=== PATIENT | male | born 1980 | race Caucasian/White ===

== ENCOUNTER 2016-12-21 17:55 | Emergency (ER) | payer MEDICARE, MEDICAID ==
[~2016-12-21] VITALS: Ht 185.4 cm; Wt 89.5 kg
[~2016-12-21 17:55] MED LIST changes: -ABIL15TA2 PO; +ABIL1TAB12 PO; -ABIL5TAB5 PO; -COLA100C3 PO; +COLA100C5 PO; +HYDR-3911 PO; -HYDR-4267 PO; -KEPP1000 PO; +KEPP10002 PO; +PAXI20TA29 PO; -PAXI20TA3 PO; -PROZ20CA11 PO; -SENO8.6T2 PO; +SENO8.6T5 PO; +TRAZ50TA11 PO; -TRAZ50TA4 PO
[2016-12-21] MEDS ORDERED: PROZ20CA11 PO (18:13)
[2016-12-21] MEDS ORDERED: VIMP150T PO (18:13)
[2016-12-21] MEDS ORDERED: ABIL1TAB11 PO (18:13)
[2016-12-21 20:06] VITALS: BP 136/87
== END 2016-12-21 20:07 | disposition home or self-care (01) ==
LOC: M ED 18:22
DX: I82.432 Acute embolism and thrombosis of left popliteal vein (principal); I10 Essential (primary) hypertension; F41.9 Anxiety disorder, unspecified; F32.9 Major depressive disorder, single episode, unspecified; Z86.73 Personal history of transient ischemic attack (TIA), and cerebral infarction without residual deficits; M54.30 Sciatica, unspecified side; F17.200 Nicotine dependence, unspecified, uncomplicated; Z79.899 Other long term (current) drug therapy; Z88.8 Allergy status to other drugs, medicaments and biological substances

== ENCOUNTER → 2016-12-21 | Outpatient (CLI) | payer MEDICARE, MEDICAID ==
[~2016-12-21] MED LIST: ABIL15TA2 PO; ABIL5TAB5 PO; ALPR0.25 PO; AMLO10TA2 PO; Amlodipine Besylate PO; CATA0.2T PO; COLA100C3 PO; HYDR-4267 PO; KEPP1000 PO; LISI-538 PO; LISI10TA2 PO; MAPA325T2 PO; PANT40TA2 PO; PAXI20TA3 PO; PROZ20CA11 PO; SENO8.6T2 PO; SERT50TA PO; TRAZ25TA PO; TRAZ50TA4 PO; VICO5TAB16 PO; VIMP150T PO; VITA100T2 PO
--- NOTE | 2016-12-21 17:43 | REP ---
RIGHT LOWER EXTREMITY DOPPLER VENOUS ULTRASOUND: 12/21/2016. Comparison: 10/06/2015. Clinical history: Swelling and pain right lower extremity, evaluate for DVT. Findings: Duplex techniques were utilized. The common femoral and proximal superficial femoral vein showed full compressibility, color flow, respiratory variation and augmentation. In the mid thigh through the popliteal vein there is nonocclusive DVT present in the deep venous system. Some flow is seen but there is poor augmentation and respiratory variability. Impression: 1. Study positive for nonocclusive DVT from the right mid thigh course of the SFA the through the popliteal vein. Signed by Armando Mendoza MD 12/21/2016 05:34 P
== END ==
LOC: M RAD 16:49
PROVIDERS: ATTEND Physician Assistant Medical
DX: I82.432 Acute embolism and thrombosis of left popliteal vein (principal)

== ENCOUNTER 2017-02-07 13:56 | Inpatient (IN) | payer MEDICARE, MEDICAID ==
[~2017-02-07] VITALS: Ht 185.4 cm; Wt 94.0 kg
[~2017-02-07 13:56] MED LIST changes: -ELIQ2.5T PO; -IBUPOTC PO; -LEVE750T5 PO
[2017-02-07 15:15] VITALS: BP 131/76
[2017-02-07 15:39] LABS: BASO # 0.1 K/mm3 (0.0-0.2); BASO % 0.9 % (0.0-1.0); EOS # 0.4 K/mm3 (0.0-0.50); EOS % 5.1 % (0.0-3.0); LARGE UNSTAINED CELL # 0.1 K/mm3 (0.0-0.4); LARGE UNSTAINED CELL % 0.6 % (0.0-4.0); LYMPH # 1.6 K/mm3 (1.5-4.5); LYMPH % 18.6 % (24.0-44.0); MEAN CORPUSCULAR HGB CONC 33.5 g/dl (32.0-36.5); MEAN CORPUSCULAR VOLUME 92.5 fl (80.0-96.0); MONO # 0.4 K/mm3 (0.0-0.8); MONO % 4.7 % (0.0-5.0); NEUTROPHILS # 5.8 K/mm3 (1.8-7.7); NEUTROPHILS % 70.1 % (36.0-66.0); PLATELET COUNT, AUTOMATED 277 k/mm3 (150-450); RED CELL DISTRIBUTION WIDTH 13.8 % (11.5-14.5); WHITE BLOOD COUNT 8.3 K/mm3 (4.0-10.0)
[2017-02-07 15:44] LABS: INR 0.85
[2017-02-07 15:55] LABS: ANION GAP 5 MEQ/L (8-16); BLOOD UREA NITROGEN 11 MG/DL (7-18); CALCIUM LEVEL 9.6 MG/DL (8.5-10.1); CARBON DIOXIDE LEVEL 29 MEQ/L (21-32); CHLORIDE LEVEL 109 MEQ/L (98-107); CREATININE FOR GFR 0.89 MG/DL (0.70-1.30); GLOMERULAR FILTRATION RATE > 60.0 (>60); GLUCOSE, FASTING 86 MG/DL (70-105); POTASSIUM SERUM 3.9 MEQ/L (3.5-5.1); SODIUM LEVEL 143 MEQ/L (136-145)
[2017-02-07] MEDS ORDERED: ISOVUE-370 76% 100ML VIAL (Q9967) As Ordered ONE (16:20)
[2017-02-07] MEDS: D5W/0.45% SODIUM CHLORIDE 1,000 ML IV SCH ×2 (17:06→23:19)
--- NOTE | 2017-02-07 18:43 | REP ---
CT ANGIO CHEST: HISTORY: Pulmonary embolism. CONTRAST: Isovue-370 100 mL. There are no filling defects in the main , right and left pulmonary arteries or their branches. The lungs are clear. There is no pleural effusion. There is no mediastinal mass. A small hiatal hernia is present. IMPRESSION: 1. There is no pulmonary embolism. 2. Small hiatal hernia. Signed by Jah Oneil MD 02/07/2017 06:47 P
[2017-02-07] MEDS ORDERED: LEVE750T5 PO (21:42)
[2017-02-07] MEDS ORDERED: IBUPOTC PO (21:43)
[2017-02-07 22:00] VITALS: BP 135/84
--- NOTE | 2017-02-07 23:07 | IPNPDOC ---
Date Seen The patient was seen on 02/07/17. Progress Note SUBJECTIVE: Patient is without complaints. OBJECTIVE PHYSICAL EXAMINATION: VITAL SIGNS: Please see below. GENERAL: Lying in bed in no apparent distress HEENT: Normal CARDIOVASCULAR: Regular rate and rhythm. RESPIRATORY: Clear to auscultation bilaterally. ABDOMINAL: Soft nontender nondistended EXTREMITIES: Bilateral lotion swelling, lower extremities well perfused. NEUROLOGICAL: Alert and oriented x3 with no focal deficits PSYCHOLOGICAL: [place] LABORATORY DATA: Please see below. MICROBIOLOGY: Please see below. IMAGING: CT of the chest shows no evidence of pulmonary embolus. Left lower extremity venous ultrasound shows left lower extremity DVT. DVT prophylaxis ordered?: Patient has an IVC filter. Patient admitted with acute left lower extremity DVT. ASSESSMENT AND PLAN: This is a 36-year-old white male with acute left lower extremity DVT and chronic right lower extremity DVT. PROBLEMS: 1. left lower extremity DVT: Patient has new onset DVT in the left lower extremity. Patient has an IVC filter in place and has not been able to undergo anti-coagulation due to previous subarachnoid hemorrhages. Patient will be admitted for elevation of his left lower extremity and pain control. DISPOSITION: . VS, I&O, 24H, [facility] Vital Signs/I&O Vital Signs Date Time Temp Pulse Resp B/P (MAP) Pulse Ox O2 Delivery O2 Flow Rate FiO2 02/07/17 15:15 98.5 76 17 131/76 (94) 100 Room Air Laboratory Data 24H LABS Laboratory Tests 2 02/07/17 15:25: White Blood Count 8.3, Red Blood Count 4.43, Hemoglobin 13.7L, Hematocrit 41.0L , Mean Corpuscular Volume 92.5, Mean Corpuscular Hemoglobin 31.0, Mean Corpuscular Hemoglobin Concent 33.5, Red Cell Distribution Width 13.8, Platelet Count 277, Neutrophils (%) (Auto) 70.1H, Lymphocytes (%) (Auto) 18.6L, Monocytes (%) (Auto) 4.7, Eosinophils (%) (Auto) 5.1H, Basophils (%) (Auto) 0.9 , Neutrophils # (Auto) 5.8, Lymphocytes # (Auto) 1.6, Monocytes # (Auto) 0.4, Eosinophils # (Auto) 0.4, Basophils # (Auto) 0.1, Large Unclassified Cells % 0.6 , Large Unclassified Cells # 0.1, Prothrombin Time 11.6L, Prothromb Time International Ratio 0.85, Activated Partial Thromboplast Time 28.8, Anion Gap 5L , Glomerular Filtration Rate > 60.0, Blood Urea Nitrogen 11, Creatinine 0.89, Sodium Level 143, Potassium Level 3.9, Chloride Level 109H, Carbon Dioxide Level 29, Calcium Level 9.6 CBC/BMP Laboratory Tests 02/07/17 15:25 Red Blood Count 4.43, Mean Corpuscular Volume 92.5, Mean Corpuscular Hemoglobin 31.0, Mean Corpuscular Hemoglobin Concent 33.5, Red Cell Distribution Width 13.8 , Neutrophils (%) (Auto) 70.1 H, Lymphocytes (%) (Auto) 18.6 L, Monocytes (%) ( Auto) 4.7, Eosinophils (%) (Auto) 5.1 H, Basophils (%) (Auto) 0.9, Neutrophils # (Auto) 5.8, Lymphocytes # (Auto) 1.6, Monocytes # (Auto) 0.4, Eosinophils # ( Auto) 0.4, Basophils # (Auto) 0.1, Calcium Level 9.6 Adin Regan MD Feb 07, 2017 23:07
[2017-02-07] MEDS: LACOSAMIDE 50 MG TAB (VIMPAT) PO SCH (23:12)
[2017-02-07] MEDS: levETIRAcetam 250MG TABLET (KEPPRA) PO SCH (23:12)
[2017-02-07] MEDS: IBUPROFEN 800 MG TAB PO PRN (23:13)
[2017-02-08 02:00] VITALS: BP 117/68
[2017-02-08 06:00] VITALS: BP 119/65
[2017-02-08] MEDS: D5W/0.45% SODIUM CHLORIDE 1,000 ML IV SCH ×2 (06:32→15:06)
--- NOTE | 2017-02-08 07:42 | REP ---
CT of the abdomen and pelvis with IV contrast, without bowel contrast: There are no comparison CT studies. Scanning is performed during the portal venous phase of enhancement. There are no delayed images to evaluate during the venous return phase. There is a vena cava filter just below the level of the renal arteries and veins. Above the level of the vena cava filter the abdominal vena cava is opacified by venous return from the kidneys and hepatic veins to the cardiac right atrium. Below the vena cava filter the vena cava is not opacified. However, of the fifth vena cava in this location does not appear distended. The iliac and femoral veins are distended bilaterally compatible with intraluminal thrombus. However, because of timing scanning with the IV contrast, there is no venous return from the lower extremities at the time of scanning therefore this study is insensitive for intraluminal filling defects. However, a left lower extremity deep vein duplex ultrasound on this same date identified complete occlusion of the left lower extremity deep venous system from the popliteal vein to the common femoral vein. The hepatic parenchyma, gallbladder, pancreas and spleen are unremarkable. The portal vein is normally opacified without filling defect. I suspect there are a few varices in the splenic hilus. The adrenals, kidneys and abdominal aorta are unremarkable. There is no bowel distension or obstruction. Pelvis: The appendix is unremarkable. There is no ascites or adenopathy. There is wall thickening of the descending colon and sigmoid colon. This is nonspecific but could represent colitis in the appropriate clinical setting. The bladder is incompletely distended and cannot be further evaluated. Impression: There is a Marion filter in the abdominal vena cava just inferior to the renal arteries and veins. There is opacification of the abdominal vena cava above the filter all the way to the cardiac right atrium from venous return from the kidneys and hepatic vein. The abdominal vena cava below the Dora filter is non opacified, however, is not distended. The iliac and femoral veins in the pelvis are distended bilaterally, compatible with intraluminal thrombus. The timing of the scan with the intravascular contrast is not performed during the venous return phase therefore I am unable to evaluate for intraluminal filling defects on the basis of this scan. I suspect there are a few varices near the splenic hilus. Signed by Donis Domingo MD 02/08/2017 07:34 A
[2017-02-08] MEDS ORDERED: FLUoxetine 20 MG CAP PO SCH (09:00)
[2017-02-08] MEDS ORDERED: amLODIPine 10 MG TAB PO SCH (09:00)
[2017-02-08] MEDS: levETIRAcetam 250MG TABLET (KEPPRA) PO SCH (09:59)
[2017-02-08] MEDS: LACOSAMIDE 50 MG TAB (VIMPAT) PO SCH (09:59)
[2017-02-08 10:00] VITALS: BP 118/76
[2017-02-08] MEDS: IBUPROFEN 800 MG TAB PO PRN ×2 (10:05→11:02)
[2017-02-08 14:00] VITALS: BP 147/85
[2017-02-08] MEDS ORDERED: APIXABAN 2.5 MG TAB (ELIQUIS) PO ONE (14:00)
[2017-02-08] MEDS ORDERED: ELIQ2.5T PO (15:00)
--- NOTE | 2017-03-09 11:57 | DS.PDOC ---
Discharge Summary General Date of Admission Feb 07, 2017 at 15:03 Date of Discharge 02/08/2017 Attending Physician: Adin Regan MD Discharge Summary PROCEDURES PERFORMED DURING STAY: None. ADMITTING DIAGNOSES: 1. Left lower extremity DVT. 2. Left lower extremity pain and swelling. 3. Right lower extremity DVT DISCHARGE DIAGNOSES: 1. Left lower extremity DVT. 2. Left lower extremity pain and swelling. 3. Right lower extremity DVT COMPLICATIONS/CHIEF COMPLAINT: DVT. HISTORY OF PRESENT ILLNESS: Patient is a 36-year-old male with known history of right lower extremity DVT had new onset left lower extremity swelling and findings of a DVT. HOSPITAL COURSE: Patient was admitted underwent elevation of his leg and pain control and did well with significant decrease in his pain and swelling with elevation. Patient has an inferior vena cava filter already in place and is protected from pulmonary embolus. Patient has had previous subarachnoid hemorrhages and is not a good candidate for anticoagulation. DISCHARGE MEDICATIONS: Please see below. ALLERGIES: Please see below. PHYSICAL EXAMINATION ON DISCHARGE: VITAL SIGNS: Please see below. GENERAL: Lying in bed comfortably HEENT: Normal NECK: Supple with no carotid bruits CARDIOVASCULAR EXAMINATION: Regular rate and rhythm RESPIRATORY EXAMINATION: There to auscultation bilaterally ABDOMINAL EXAMINATION: Soft nontender nondistended EXTREMITIES: Left lower extremity swelling is significantly reduced with good perfusion of the left lower extremity and minimal pain with palpation SKIN: Warm and well perfused NEUROLOGICAL EXAMINATION: Awake alert oriented 3 with no focal deficits PSYCHIATRIC EXAMINATION: Normal LABORATORY DATA: Please see below. PROGNOSIS: Good ACTIVITY: As tolerated. DIET: Resume previous diet. DISCHARGE PLAN: She is being discharged home DISPOSITION: 01 Home, Self-Care. DISCHARGE INSTRUCTIONS: 1. Elevate left leg is much as possible. 2. Wear compression stockings regularly. 3. Follow-up in the office in 1-2 weeks. ITEMS TO FOLLOWUP ON ON OUTPATIENT: 1. Bilateral lower extremity DVT with inability to anticoagulate due to previous subarachnoid hemorrhages. DISCHARGE CONDITION: Stable. TIME SPENT ON DISCHARGE: Greater than 45 minutes. Discharge Medications Scheduled Amlodipine Besylate (Amlodipine Besylate) 10 Mg Tab, 10 MG PO DAILY, (Reported) Apixaban Base (Eliquis) 2.5 Mg Tab, 2.5 MG PO BID Aripiprazole (Abilify) 5 Mg Tab, 5 MG PO DAILY, (Reported) Fluoxetine HCl (Prozac) 20 Mg Cap, 20 MG PO DAILY, (Reported) Lacosamide (Vimpat) 150 Mg Tab, 150 MG PO BID, (Reported) Levetiracetam (Levetiracetam) 750 Mg Tab, 1,500 MG PO BID, (Reported) Scheduled PRN Ibuprofen (Ibuprofen) 200 Mg Tab, 800 MG PO Q8H PRN for PAIN, (Reported) Allergies Coded Allergies: Unclassified Drugs (Unverified Allergy, Unknown, "SEX AID" - anxiety , 09/02) Adin Regan MD Mar 09, 2017 11:57
== END 2017-02-08 16:39 | disposition home or self-care (01) | DRG 301 ==
LOC: M MSPAV 15:03
PROVIDERS: ADMIT Surgery Vascular Surgery; ATTEND Surgery Vascular Surgery
DX: I82.432 Acute embolism and thrombosis of left popliteal vein (principal); I82.412 Acute embolism and thrombosis of left femoral vein; I82.501 Chronic embolism and thrombosis of unspecified deep veins of right lower extremity; I70.212 Atherosclerosis of native arteries of extremities with intermittent claudication, left leg; Z95.828 Presence of other vascular implants and grafts

== ENCOUNTER → 2017-02-07 | Outpatient (CLI) | payer MEDICARE, MEDICAID ==
[~2017-02-07] MED LIST changes: +ABIL1TAB11 PO; +ELIQ2.5T PO; +IBUPOTC PO; +LEVE750T5 PO; +PROZ20CA11 PO
--- NOTE | 2017-02-07 15:36 | REP ---
Left lower extremity deep vein duplex ultrasound: The deep veins demonstrate no occluding intraluminal thrombus from the popliteal vein to the common femoral vein. Impression: Occluding thrombus throughout the deep venous system of the left lower extremity. Signed by Donis Domingo MD 02/07/2017 03:27 P
== END ==
LOC: M RAD 12:57
PROVIDERS: ATTEND Surgery Vascular Surgery
DX: I82.432 Acute embolism and thrombosis of left popliteal vein (principal); I82.412 Acute embolism and thrombosis of left femoral vein; I70.212 Atherosclerosis of native arteries of extremities with intermittent claudication, left leg

== ENCOUNTER 2017-08-23 16:24 | Emergency (ER) | payer MEDICARE, MEDICAID | END 2017-08-23 20:09 | disposition home or self-care (01) | LOC: M ED 16:24 | DX: M79.601 Pain in right arm (principal); Z86.718 Personal history of other venous thrombosis and embolism; Z86.73 Personal history of transient ischemic attack (TIA), and cerebral infarction without residual deficits; F17.210 Nicotine dependence, cigarettes, uncomplicated; Z88.8 Allergy status to other drugs, medicaments and biological substances; Z79.899 Other long term (current) drug therapy; Z79.01 Long term (current) use of anticoagulants | CPT/HCPCS: 93971 ==

== ENCOUNTER → 2017-09-28 | Outpatient (REF) | payer MEDICARE, MEDICAID ==
[2017-09-28 19:02] LABS: BASO # 0.1 10^3/uL (0.0-0.2); EOS # 0.1 10^3/uL (0.0-0.50); EOS % 1.7 % (0.0-3.0); HEMATOCRIT 54.8 % (42.0-52.0); IMMATURE GRANULOCYTE % 0.6 % (0-3.0); LYMPH # 1.5 10^3/uL (1.5-4.5); LYMPH % 17.8 % (24.0-44.0); MEAN CORPUSCULAR HEMOGLOBIN 31.9 pg (27.0-33.0); MEAN CORPUSCULAR HGB CONC 32.8 g/dl (32.0-36.5); MEAN CORPUSCULAR VOLUME 97.2 fl (80.0-96.0); MONO # 0.7 10^3/uL (0.0-0.8); MONO % 7.8 % (0.0-5.0); NEUTROPHILS # 5.9 10^3/uL (1.8-7.7); NEUTROPHILS % 71.1 % (36.0-66.0); PLATELET COUNT, AUTOMATED 215 10^3/uL (150-450); RED BLOOD COUNT 5.64 10^6/uL (4.30-6.10); RED CELL DISTRIBUTION WIDTH 14.5 % (11.5-14.5); WHITE BLOOD COUNT 8.4 10^3/uL (4.0-10.0)
[2017-09-28 19:11] LABS: ALBUMIN 4.3 GM/DL (3.2-5.2); ALBUMIN/GLOBULIN RATIO 1.19 (1.00-1.93); ALKALINE PHOSPHATASE 141 U/L (45-117); ALT/SGPT 33 U/L (12-78); ANION GAP 7 MEQ/L (8-16); AST/SGOT 15 U/L (7-37); BILIRUBIN,TOTAL 0.4 MG/DL (0.2-1.0); BLOOD UREA NITROGEN 14 MG/DL (7-18); CALCIUM LEVEL 9.3 MG/DL (8.5-10.1); CARBON DIOXIDE LEVEL 26 MEQ/L (21-32); CHLORIDE LEVEL 111 MEQ/L (98-107); CREATININE FOR GFR 1.09 MG/DL (0.70-1.30); GLOMERULAR FILTRATION RATE > 60.0 (>60); GLUCOSE, FASTING 92 MG/DL (70-100); POTASSIUM SERUM 3.8 MEQ/L (3.5-5.1); SODIUM LEVEL 144 MEQ/L (136-145); TOTAL PROTEIN 7.9 GM/DL (6.4-8.2)
[2017-09-28 20:01] LABS: ADD MORPHOLOGY? YES; POS COUNT POS FLAG
[2017-09-28 20:02] LABS: PLATELET CLUMPS SMALL AMT; PLATELET ESTIMATE NORMAL (NORMAL)
== END ==
LOC: M LABNEURO 13:41
DX: S06.6X2S Traumatic subarachnoid hemorrhage with loss of consciousness of 31 minutes to 59 minutes, sequela (principal); W18.30XA Fall on same level, unspecified, initial encounter; Y92.009 Unspecified place in unspecified non-institutional (private) residence as the place of occurrence of the external cause
CPT/HCPCS: 80053

== ENCOUNTER 2018-02-24 16:46 | Emergency (ER) | payer MEDICARE, MEDICAID ==
[2018-02-24] MEDS: AUGMENTIN 875 MG TAB PO (18:23)
[2018-02-24] MEDS: ACETAMINOPHEN 325 MG TAB PO (18:23)
== END 2018-02-24 18:31 | disposition home or self-care (01) ==
LOC: M ED 16:46
DX: K02.9 Dental caries, unspecified (principal); I10 Essential (primary) hypertension; K21.9 Gastro-esophageal reflux disease without esophagitis; F32.9 Major depressive disorder, single episode, unspecified; F17.200 Nicotine dependence, unspecified, uncomplicated
CPT/HCPCS: 99282

== ENCOUNTER 2018-03-19 13:33 | Emergency (ER) | payer MEDICARE, MEDICAID ==
[2018-03-19] MEDS: KETOROLAC TROMETHAMINE 10 MG TAB PO (14:30)
== END 2018-03-19 14:30 | disposition home or self-care (01) ==
LOC: M ED 13:33
DX: K02.9 Dental caries, unspecified (principal); K08.89 Other specified disorders of teeth and supporting structures; I10 Essential (primary) hypertension; K21.9 Gastro-esophageal reflux disease without esophagitis; F41.9 Anxiety disorder, unspecified; F32.9 Major depressive disorder, single episode, unspecified; M54.30 Sciatica, unspecified side; Z86.79 Personal history of other diseases of the circulatory system; Z86.718 Personal history of other venous thrombosis and embolism; R56.9 Unspecified convulsions; Z79.899 Other long term (current) drug therapy; Z88.8 Allergy status to other drugs, medicaments and biological substances
CPT/HCPCS: 99282

== ENCOUNTER 2018-03-23 18:29 | Emergency (ER) | payer MEDICARE, MEDICAID ==
[2018-03-23] MEDS: KETOROLAC 60 MG/2 ML VIAL (J1885) IM (21:14)
== END 2018-03-23 21:51 | disposition home or self-care (01) ==
LOC: M ED 18:29
DX: K02.9 Dental caries, unspecified (principal); I10 Essential (primary) hypertension; R56.9 Unspecified convulsions; F41.9 Anxiety disorder, unspecified; F32.9 Major depressive disorder, single episode, unspecified; Z86.73 Personal history of transient ischemic attack (TIA), and cerebral infarction without residual deficits; Z86.79 Personal history of other diseases of the circulatory system; Z79.899 Other long term (current) drug therapy; Z79.01 Long term (current) use of anticoagulants; Z88.8 Allergy status to other drugs, medicaments and biological substances
CPT/HCPCS: J1885

== ENCOUNTER → 2018-03-30 | Outpatient (CLI) | payer MEDICARE, MEDICAID ==
[2018-03-30 18:02] LABS: BASO # 0.1 10^3/uL (0.0-0.2); EOS # 0.2 10^3/uL (0.0-0.50); EOS % 4.2 % (0.0-3.0); HEMATOCRIT 52.2 % (42.0-52.0); HEMOGLOBIN 17.7 g/dl (13.5-17.5); IMMATURE GRANULOCYTE % 0.5 % (0-3.0); LYMPH # 1.8 10^3/uL (1.5-4.5); LYMPH % 31.6 % (24.0-44.0); MEAN CORPUSCULAR HEMOGLOBIN 33.1 pg (27.0-33.0); MEAN CORPUSCULAR HGB CONC 33.9 g/dl (32.0-36.5); MEAN CORPUSCULAR VOLUME 97.6 fl (80.0-96.0); MONO # 0.7 10^3/uL (0.0-0.8); MONO % 12.1 % (0.0-5.0); NEUTROPHILS # 2.9 10^3/uL (1.8-7.7); NEUTROPHILS % 50.6 % (36.0-66.0); PLATELET COUNT, AUTOMATED 178 10^3/uL (150-450); RED BLOOD COUNT 5.35 10^6/uL (4.30-6.10); RED CELL DISTRIBUTION WIDTH 13.2 % (11.5-14.5); WHITE BLOOD COUNT 5.7 10^3/uL (4.0-10.0)
[2018-03-30 18:56] LABS: ALBUMIN 4.2 GM/DL (3.2-5.2); ALKALINE PHOSPHATASE 101 U/L (45-117); ALT/SGPT 59 U/L (12-78); ANION GAP 8 MEQ/L (8-16); AST/SGOT 27 U/L (7-37); BILIRUBIN,TOTAL 0.3 MG/DL (0.2-1.0); BLOOD UREA NITROGEN 9 MG/DL (7-18); CALCIUM LEVEL 9.4 MG/DL (8.5-10.1); CARBON DIOXIDE LEVEL 26 MEQ/L (21-32); CHLORIDE LEVEL 110 MEQ/L (98-107); CREATININE FOR GFR 0.86 MG/DL (0.70-1.30); GLOMERULAR FILTRATION RATE > 60.0 (>60); GLUCOSE, FASTING 90 MG/DL (70-100); SODIUM LEVEL 144 MEQ/L (136-145); TOTAL PROTEIN 7.2 GM/DL (6.4-8.2)
[2018-04-04 00:07] LABS: LACOSAMIDE LEVEL 5.4 ug/mL (5.0-10.0)
[2018-04-04 00:07] LABS: LEVETIRACETAM (KEPPRA) 8.3 ug/mL (10.0-40.0)
== END ==
LOC: M LAB 16:34
DX: S06.6X2S Traumatic subarachnoid hemorrhage with loss of consciousness of 31 minutes to 59 minutes, sequela (principal); X58.XXXS Exposure to other specified factors, sequela
CPT/HCPCS: 80053

== ENCOUNTER 2018-04-21 20:58 | Inpatient (IN) | payer MEDICARE, MEDICAID ==
[2018-04-21 23:18] LABS: BASO # 0.1 10^3/uL (0.0-0.2); BASO % 0.5 % (0.0-1.0); EOS # 0.2 10^3/uL (0.0-0.50); EOS % 1.5 % (0.0-3.0); HEMATOCRIT 49.7 % (42.0-52.0); HEMOGLOBIN 16.8 g/dl (13.5-17.5); IMMATURE GRANULOCYTE % 0.5 % (0-3.0); LYMPH # 1.6 10^3/uL (1.5-4.5); LYMPH % 14.1 % (24.0-44.0); MEAN CORPUSCULAR HEMOGLOBIN 33.1 pg (27.0-33.0); MEAN CORPUSCULAR HGB CONC 33.8 g/dl (32.0-36.5); MONO # 0.8 10^3/uL (0.0-0.8); NEUTROPHILS # 8.4 10^3/uL (1.8-7.7); NEUTROPHILS % 76.4 % (36.0-66.0); PLATELET COUNT, AUTOMATED 188 10^3/uL (150-450); RED BLOOD COUNT 5.07 10^6/uL (4.30-6.10); RED CELL DISTRIBUTION WIDTH 14.2 % (11.5-14.5); WHITE BLOOD COUNT 11.1 10^3/uL (4.0-10.0)
[2018-04-21 23:31] LABS: INR 1.45; PARTIAL THROMBOPLASTIN TIME 35.2 SECONDS (25.4-37.6); PROTHROMBIN TIME 17.9 SECONDS (12.1-14.4)
[2018-04-21 23:56] LABS: ANION GAP 6 MEQ/L (8-16); BLOOD UREA NITROGEN 7 MG/DL (7-18); C REACTIVE PROTEIN QUANTITATIV 0.42 MG/DL (0.00-0.30); CALCIUM LEVEL 8.9 MG/DL (8.5-10.1); CARBON DIOXIDE LEVEL 26 MEQ/L (21-32); CHLORIDE LEVEL 109 MEQ/L (98-107); CREATININE FOR GFR 0.86 MG/DL (0.70-1.30); GLOMERULAR FILTRATION RATE > 60.0 (>60); GLUCOSE, FASTING 101 MG/DL (70-100); POTASSIUM SERUM 4.1 MEQ/L (3.5-5.1); SODIUM LEVEL 141 MEQ/L (136-145)
[2018-04-22] MEDS ORDERED: zolPIDEM TARTRATE 5 MG TAB PO (01:15)
[2018-04-22] MEDS: PERCOCET 5MG/325MG TAB PO ×3 (02:17→20:09)
[2018-04-22] MEDS: PARoxetine 20 MG TAB PO (08:35)
[2018-04-22] MEDS: levETIRAcetam 250MG TABLET (KEPPRA) PO ×2 (08:35→20:08)
[2018-04-22] MEDS: RIVAROXABAN 20 MG TAB (XARELTO) PO (08:35)
[2018-04-22] MEDS: OMEPRAZOLE 20 MG CAP PO (08:36)
[2018-04-22] MEDS: amLODIPine 10 MG TAB PO (08:37)
[2018-04-22] MEDS: LACOSAMIDE 50 MG TAB (VIMPAT) PO ×2 (08:37→20:08)
[2018-04-22] MEDS: SENOKOT S TAB PO ×2 (08:38→20:08)
[2018-04-22] MEDS: HYDROmorphone 2 MG TAB PO (21:53)
[2018-04-23] MEDS: PERCOCET 5MG/325MG TAB PO ×5 (01:09→21:09)
[2018-04-23 06:26] LABS: HEMATOCRIT 49.3 % (42.0-52.0); HEMOGLOBIN 16.7 g/dl (13.5-17.5); MEAN CORPUSCULAR HEMOGLOBIN 33.5 pg (27.0-33.0); MEAN CORPUSCULAR HGB CONC 33.9 g/dl (32.0-36.5); MEAN CORPUSCULAR VOLUME 98.8 fl (80.0-96.0); PLATELET COUNT, AUTOMATED 180 10^3/uL (150-450); RED BLOOD COUNT 4.99 10^6/uL (4.30-6.10); RED CELL DISTRIBUTION WIDTH 13.9 % (11.5-14.5)
[2018-04-23 06:39] LABS: ANION GAP 5 MEQ/L (8-16); BLOOD UREA NITROGEN 11 MG/DL (7-18); CALCIUM LEVEL 8.9 MG/DL (8.5-10.1); CARBON DIOXIDE LEVEL 30 MEQ/L (21-32); CHLORIDE LEVEL 105 MEQ/L (98-107); CREATININE FOR GFR 0.95 MG/DL (0.70-1.30); GLOMERULAR FILTRATION RATE > 60.0 (>60); GLUCOSE, FASTING 112 MG/DL (70-100); POTASSIUM SERUM 3.9 MEQ/L (3.5-5.1); SODIUM LEVEL 140 MEQ/L (136-145)
[2018-04-23] MEDS: LACOSAMIDE 50 MG TAB (VIMPAT) PO ×2 (09:55→21:09)
[2018-04-23] MEDS: OMEPRAZOLE 20 MG CAP PO (09:55)
[2018-04-23] MEDS: levETIRAcetam 250MG TABLET (KEPPRA) PO ×2 (09:55→21:08)
[2018-04-23] MEDS: PARoxetine 20 MG TAB PO (09:55)
[2018-04-23] MEDS: amLODIPine 10 MG TAB PO (09:56)
[2018-04-23] MEDS: RIVAROXABAN 20 MG TAB (XARELTO) PO (09:56)
[2018-04-23] MEDS: SENOKOT S TAB PO ×3 (09:59→21:09)
[2018-04-23] MEDS ORDERED: OXAZEPAM 10 MG CAP PO (10:45)
[2018-04-23] MEDS: predniSONE 20 MG TAB PO (10:57)
[2018-04-23] MEDS: COLCHICINE 0.6 MG TAB PO ×2 (13:20→21:08)
[2018-04-24] MEDS: PERCOCET 5MG/325MG TAB PO ×4 (01:34→21:02)
[2018-04-24 06:28] LABS: HEMATOCRIT 52.4 % (42.0-52.0); HEMOGLOBIN 17.6 g/dl (13.5-17.5); MEAN CORPUSCULAR HEMOGLOBIN 33.1 pg (27.0-33.0); MEAN CORPUSCULAR HGB CONC 33.6 g/dl (32.0-36.5); MEAN CORPUSCULAR VOLUME 98.5 fl (80.0-96.0); PLATELET COUNT, AUTOMATED 178 10^3/uL (150-450); RED BLOOD COUNT 5.32 10^6/uL (4.30-6.10); RED CELL DISTRIBUTION WIDTH 13.7 % (11.5-14.5); WHITE BLOOD COUNT 11.7 10^3/uL (4.0-10.0)
[2018-04-24 06:59] LABS: ANION GAP 6 MEQ/L (8-16); BLOOD UREA NITROGEN 12 MG/DL (7-18); CALCIUM LEVEL 9.4 MG/DL (8.5-10.1); CARBON DIOXIDE LEVEL 29 MEQ/L (21-32); CHLORIDE LEVEL 104 MEQ/L (98-107); GLOMERULAR FILTRATION RATE > 60.0 (>60); GLUCOSE, FASTING 109 MG/DL (70-100); POTASSIUM SERUM 3.7 MEQ/L (3.5-5.1); SODIUM LEVEL 139 MEQ/L (136-145)
[2018-04-24] MEDS: SENOKOT S TAB PO ×2 (08:31→21:01)
[2018-04-24] MEDS: levETIRAcetam 250MG TABLET (KEPPRA) PO ×2 (08:31→21:01)
[2018-04-24] MEDS: amLODIPine 10 MG TAB PO (08:32)
[2018-04-24] MEDS: OMEPRAZOLE 20 MG CAP PO (08:32)
[2018-04-24] MEDS: COLCHICINE 0.6 MG TAB PO ×2 (08:32→21:01)
[2018-04-24] MEDS: PARoxetine 20 MG TAB PO (08:32)
[2018-04-24] MEDS: predniSONE 20 MG TAB PO (08:33)
[2018-04-24] MEDS: RIVAROXABAN 20 MG TAB (XARELTO) PO (08:36)
[2018-04-24] MEDS: LACOSAMIDE 50 MG TAB (VIMPAT) PO ×2 (08:36→21:01)
[2018-04-24 21:21] LABS: SOURCE, BODY FLUID RT KNEE; SYNOVIAL FLUID COLOR YELLOW (YELLOW)
[2018-04-24 21:22] LABS: APPEARANCE, BODY FLUID CLOUDY (CLEAR); CRYSTALS, BODY FLUID URIC ACID (NONE SEEN); SOURCE, BODY FLUID CRYSTALS RT KNEE
[2018-04-24 21:40] LABS: BF DIFF IF INDICATED? YES (NO); BF MONONUCLEAR CELL % 7.6 % (0-0); BF POLYMORPHONUCLEAR CELL % 92.4 % (0-0); SOURCE, BODY FLUID GLUCOSE RT KNEE; SOURCE, BODY FLUID URIC ACID RT KNEE; URIC ACID, BODY FLUID 5.2 MG/DL (NOT ESTABLISHED); WBC BODY FLUID 69530 /uL (0-10)
[2018-04-24 21:41] LABS: RBC BODY FLUID 8 10^3/uL (<2)
[2018-04-24] MEDS ORDERED: PROPOFOL 200 MG/20 ML VIAL As Ordered (22:20)
[2018-04-24] MEDS ORDERED: LIDOCAINE 2% INJ 100 MG/5 ML SDV (FOR ANES.) As Ordered (22:21)
[2018-04-24] MEDS ORDERED: ONDANSETRON 4MG/2ML VIAL (J2405) As Ordered (22:21)
[2018-04-24] MEDS ORDERED: dexameTHASONE 4 MG/ML 1ML VIAL (J1100) As Ordered (22:22)
[2018-04-24] MEDS ORDERED: MIDAZOLAM INJ 2 MG/2 ML VIAL (J2250) As Ordered ×2 (22:24→23:20)
[2018-04-24] MEDS ORDERED: fentaNYL 100 MCG/2 ML INJECTION (J3010) As Ordered (22:25)
[2018-04-24] MEDS ORDERED: ROCURONIUM BROMIDE 50 MG/5 ML VIAL As Ordered (22:29)
[2018-04-24] MEDS ORDERED: fentaNYL 250 MCG/5 ML INJECTION (J3010) As Ordered (23:19)
[2018-04-24] MEDS: VANCOMYCIN 1000 MG/20 ML VIAL (J3370) As Ordered (23:35)
[2018-04-24] MEDS ORDERED: LABETALOL HCL 100 MG/20 ML VIAL As Ordered (23:36)
[2018-04-24] MEDS: BUPIVACAINE/EPIN 0.5% 30 ML VIAL As Ordered (23:50)
[2018-04-25] MEDS ORDERED: fentaNYL 100 MCG/2 ML INJECTION (J3010) IV (00:15)
[2018-04-25] MEDS: LR 1,000 ML IV (00:15)
[2018-04-25] MEDS ORDERED: HYDROMORPHONE HCL 0.5 MG/ 0.5 ML SYRINGE (J1170 PER 1) IV (00:15)
[2018-04-25] MEDS ORDERED: PERCOCET 5MG/325MG TAB PO (00:15)
[2018-04-25] MEDS: ONDANSETRON 4MG/2ML VIAL (J2405) IV (00:35)
[2018-04-25] MEDS ORDERED: ONDANSETRON 4MG/2ML VIAL (J2405) As Ordered (00:43)
[2018-04-25] MEDS ORDERED: METOCLOPRAMIDE INJ 10MG/2ML VIAL (J2765) As Ordered (01:05)
[2018-04-25] MEDS: METOCLOPRAMIDE INJ 10MG/2ML VIAL (J2765) IV (01:05)
[2018-04-25] MEDS: PERCOCET 5MG/325MG TAB PO ×4 (04:24→20:04)
[2018-04-25 06:14] LABS: HEMATOCRIT 46.5 % (42.0-52.0); MEAN CORPUSCULAR HEMOGLOBIN 33.3 pg (27.0-33.0); MEAN CORPUSCULAR HGB CONC 33.3 g/dl (32.0-36.5); MEAN CORPUSCULAR VOLUME 99.8 fl (80.0-96.0); PLATELET COUNT, AUTOMATED 190 10^3/uL (150-450); RED BLOOD COUNT 4.66 10^6/uL (4.30-6.10); RED CELL DISTRIBUTION WIDTH 13.9 % (11.5-14.5)
[2018-04-25 06:23] LABS: HEMOGLOBIN 15.5 g/dl (13.5-17.5)
[2018-04-25 06:34] LABS: C REACTIVE PROTEIN QUANTITATIV 9.81 MG/DL (0.00-0.30)
[2018-04-25 06:36] LABS: ANION GAP 5 MEQ/L (8-16); BLOOD UREA NITROGEN 14 MG/DL (7-18); CALCIUM LEVEL 8.8 MG/DL (8.5-10.1); CARBON DIOXIDE LEVEL 29 MEQ/L (21-32); CHLORIDE LEVEL 106 MEQ/L (98-107); CREATININE FOR GFR 0.98 MG/DL (0.70-1.30); GLOMERULAR FILTRATION RATE > 60.0 (>60); GLUCOSE, FASTING 147 MG/DL (70-100); SODIUM LEVEL 140 MEQ/L (136-145)
[2018-04-25] MEDS: ACETAMINOPHEN TAB 650MG DOSE (2X325MG) PO (07:00)
[2018-04-25] MEDS: PARoxetine 20 MG TAB PO (08:39)
[2018-04-25] MEDS: LACOSAMIDE 50 MG TAB (VIMPAT) PO ×2 (08:39→20:05)
[2018-04-25] MEDS: OMEPRAZOLE 20 MG CAP PO (08:39)
[2018-04-25] MEDS: levETIRAcetam 250MG TABLET (KEPPRA) PO ×2 (08:40→20:05)
[2018-04-25] MEDS: COLCHICINE 0.6 MG TAB PO ×2 (08:40→20:05)
[2018-04-25] MEDS: RIVAROXABAN 20 MG TAB (XARELTO) PO (08:40)
[2018-04-25] MEDS: SENOKOT S TAB PO ×2 (08:42→20:05)
[2018-04-25] MEDS: amLODIPine 10 MG TAB PO (08:42)
[2018-04-25] MEDS: VANCOMYCIN HCL 1,000 MG, VIAL MATE ADAPTER 1 EACH in D5W 250 ML IV ×2 (08:44→16:51)
[2018-04-25 09:44] LABS: BODY FLUID RHEUMATOID SCREEN NEGATIVE (NEGATIVE)
[2018-04-25 09:45] LABS: MUCIN CLOT TEST 4+ (4+)
[2018-04-25 23:52] LABS: VANCOMYCIN LEVEL TROUGH 13.8 UG/ML (10.0-20.0)
[2018-04-26] MEDS: VANCOMYCIN HCL 1,000 MG, VIAL MATE ADAPTER 1 EACH in D5W 250 ML IV ×3 (00:31→16:41)
[2018-04-26] MEDS: PERCOCET 5MG/325MG TAB PO ×4 (01:47→21:40)
[2018-04-26 06:08] LABS: HEMATOCRIT 52.1 % (42.0-52.0); HEMOGLOBIN 17.1 g/dl (13.5-17.5); MEAN CORPUSCULAR HEMOGLOBIN 32.8 pg (27.0-33.0); MEAN CORPUSCULAR HGB CONC 32.8 g/dl (32.0-36.5); PLATELET COUNT, AUTOMATED 211 10^3/uL (150-450); RED BLOOD COUNT 5.21 10^6/uL (4.30-6.10); RED CELL DISTRIBUTION WIDTH 13.8 % (11.5-14.5)
[2018-04-26 06:35] LABS: ANION GAP 5 MEQ/L (8-16); BLOOD UREA NITROGEN 11 MG/DL (7-18); C REACTIVE PROTEIN QUANTITATIV 8.15 MG/DL (0.00-0.30); CALCIUM LEVEL 9.2 MG/DL (8.5-10.1); CARBON DIOXIDE LEVEL 31 MEQ/L (21-32); CHLORIDE LEVEL 104 MEQ/L (98-107); CREATININE FOR GFR 0.94 MG/DL (0.70-1.30); GLOMERULAR FILTRATION RATE > 60.0 (>60); GLUCOSE, FASTING 95 MG/DL (70-100); POTASSIUM SERUM 3.9 MEQ/L (3.5-5.1); SODIUM LEVEL 140 MEQ/L (136-145)
[2018-04-26] MEDS: SENOKOT S TAB PO ×2 (09:09→21:40)
[2018-04-26] MEDS: levETIRAcetam 250MG TABLET (KEPPRA) PO ×2 (09:10→21:39)
[2018-04-26] MEDS: COLCHICINE 0.6 MG TAB PO ×2 (09:10→21:38)
[2018-04-26] MEDS: RIVAROXABAN 20 MG TAB (XARELTO) PO (09:10)
[2018-04-26] MEDS: PARoxetine 20 MG TAB PO (09:10)
[2018-04-26] MEDS: LACOSAMIDE 50 MG TAB (VIMPAT) PO ×2 (09:10→21:40)
[2018-04-26] MEDS: OMEPRAZOLE 20 MG CAP PO (09:11)
[2018-04-26] MEDS: amLODIPine 10 MG TAB PO (09:11)
[2018-04-27] MEDS: VANCOMYCIN HCL 1,000 MG, VIAL MATE ADAPTER 1 EACH in D5W 250 ML IV ×4 (00:05→23:25)
[2018-04-27] MEDS: PERCOCET 5MG/325MG TAB PO ×5 (02:11→23:25)
[2018-04-27 07:20] LABS: HEMATOCRIT 52.2 % (42.0-52.0); HEMOGLOBIN 17.6 g/dl (13.5-17.5); MEAN CORPUSCULAR HEMOGLOBIN 32.9 pg (27.0-33.0); MEAN CORPUSCULAR HGB CONC 33.7 g/dl (32.0-36.5); MEAN CORPUSCULAR VOLUME 97.6 fl (80.0-96.0); PLATELET COUNT, AUTOMATED 203 10^3/uL (150-450); RED BLOOD COUNT 5.35 10^6/uL (4.30-6.10); RED CELL DISTRIBUTION WIDTH 13.4 % (11.5-14.5); WHITE BLOOD COUNT 6.8 10^3/uL (4.0-10.0)
[2018-04-27 07:39] LABS: ANION GAP 7 MEQ/L (8-16); BLOOD UREA NITROGEN 14 MG/DL (7-18); CALCIUM LEVEL 9.3 MG/DL (8.5-10.1); CARBON DIOXIDE LEVEL 27 MEQ/L (21-32); CHLORIDE LEVEL 105 MEQ/L (98-107); CREATININE FOR GFR 0.78 MG/DL (0.70-1.30); GLOMERULAR FILTRATION RATE > 60.0 (>60); GLUCOSE, FASTING 100 MG/DL (70-100); SODIUM LEVEL 139 MEQ/L (136-145)
[2018-04-27] MEDS: SENOKOT S TAB PO ×2 (08:52→20:12)
[2018-04-27] MEDS: OMEPRAZOLE 20 MG CAP PO (08:53)
[2018-04-27] MEDS: LACOSAMIDE 50 MG TAB (VIMPAT) PO ×2 (08:54→20:13)
[2018-04-27] MEDS: levETIRAcetam 250MG TABLET (KEPPRA) PO ×2 (08:54→20:13)
[2018-04-27] MEDS: COLCHICINE 0.6 MG TAB PO ×2 (08:54→20:12)
[2018-04-27] MEDS: amLODIPine 10 MG TAB PO (09:00)
[2018-04-27] MEDS: PARoxetine 20 MG TAB PO (09:10)
[2018-04-27] MEDS: RIVAROXABAN 20 MG TAB (XARELTO) PO (09:10)
[2018-04-27 16:07] LABS: VANCOMYCIN LEVEL TROUGH 13.8 UG/ML (10.0-20.0)
[2018-04-27] MEDS: predniSONE 10 MG TAB PO (16:52)
[2018-04-28] MEDS: PERCOCET 5MG/325MG TAB PO ×4 (05:02→21:22)
[2018-04-28 06:27] LABS: HEMATOCRIT 51.3 % (42.0-52.0); HEMOGLOBIN 17.1 g/dl (13.5-17.5); MEAN CORPUSCULAR HEMOGLOBIN 32.9 pg (27.0-33.0); MEAN CORPUSCULAR HGB CONC 33.3 g/dl (32.0-36.5); MEAN CORPUSCULAR VOLUME 98.7 fl (80.0-96.0); PLATELET COUNT, AUTOMATED 248 10^3/uL (150-450); RED CELL DISTRIBUTION WIDTH 13.2 % (11.5-14.5); WHITE BLOOD COUNT 9.6 10^3/uL (4.0-10.0)
[2018-04-28 06:55] LABS: ANION GAP 7 MEQ/L (8-16); BLOOD UREA NITROGEN 15 MG/DL (7-18); C REACTIVE PROTEIN QUANTITATIV 4.05 MG/DL (0.00-0.30); CALCIUM LEVEL 9.2 MG/DL (8.5-10.1); CARBON DIOXIDE LEVEL 30 MEQ/L (21-32); CHLORIDE LEVEL 102 MEQ/L (98-107); CREATININE FOR GFR 0.91 MG/DL (0.70-1.30); GLOMERULAR FILTRATION RATE > 60.0 (>60); GLUCOSE, FASTING 98 MG/DL (70-100); POTASSIUM SERUM 3.7 MEQ/L (3.5-5.1); SODIUM LEVEL 139 MEQ/L (136-145)
[2018-04-28] MEDS: amLODIPine 10 MG TAB PO (09:00)
[2018-04-28] MEDS: VANCOMYCIN HCL 1,000 MG, VIAL MATE ADAPTER 1 EACH in D5W 250 ML IV (09:06)
[2018-04-28] MEDS: OMEPRAZOLE 20 MG CAP PO (09:07)
[2018-04-28] MEDS: SENOKOT S TAB PO ×2 (09:08→21:22)
[2018-04-28] MEDS: COLCHICINE 0.6 MG TAB PO ×2 (09:08→21:21)
[2018-04-28] MEDS: PARoxetine 20 MG TAB PO (09:08)
[2018-04-28] MEDS: predniSONE 10 MG TAB PO (09:09)
[2018-04-28] MEDS: levETIRAcetam 250MG TABLET (KEPPRA) PO ×2 (09:09→21:22)
[2018-04-28] MEDS: LACOSAMIDE 50 MG TAB (VIMPAT) PO ×2 (09:09→21:21)
[2018-04-28] MEDS: RIVAROXABAN 20 MG TAB (XARELTO) PO (09:09)
[2018-04-29] MEDS: PERCOCET 5MG/325MG TAB PO ×3 (01:33→15:27)
[2018-04-29 06:24] LABS: HEMATOCRIT 49.5 % (42.0-52.0); HEMOGLOBIN 16.8 g/dl (13.5-17.5); MEAN CORPUSCULAR HEMOGLOBIN 33.5 pg (27.0-33.0); MEAN CORPUSCULAR HGB CONC 33.9 g/dl (32.0-36.5); MEAN CORPUSCULAR VOLUME 98.8 fl (80.0-96.0); PLATELET COUNT, AUTOMATED 259 10^3/uL (150-450); RED BLOOD COUNT 5.01 10^6/uL (4.30-6.10); RED CELL DISTRIBUTION WIDTH 13.3 % (11.5-14.5); WHITE BLOOD COUNT 9.8 10^3/uL (4.0-10.0)
[2018-04-29 06:42] LABS: ANION GAP 5 MEQ/L (8-16); BLOOD UREA NITROGEN 17 MG/DL (7-18); C REACTIVE PROTEIN QUANTITATIV 2.51 MG/DL (0.00-0.30); CALCIUM LEVEL 9.2 MG/DL (8.5-10.1); CARBON DIOXIDE LEVEL 32 MEQ/L (21-32); CHLORIDE LEVEL 105 MEQ/L (98-107); CREATININE FOR GFR 0.86 MG/DL (0.70-1.30); GLOMERULAR FILTRATION RATE > 60.0 (>60); GLUCOSE, FASTING 106 MG/DL (70-100); POTASSIUM SERUM 3.9 MEQ/L (3.5-5.1); SODIUM LEVEL 142 MEQ/L (136-145)
[2018-04-29] MEDS: LACOSAMIDE 50 MG TAB (VIMPAT) PO (09:39)
[2018-04-29] MEDS: OMEPRAZOLE 20 MG CAP PO (09:40)
[2018-04-29] MEDS: SENOKOT S TAB PO (09:40)
[2018-04-29] MEDS: predniSONE 10 MG TAB PO (09:40)
[2018-04-29] MEDS: COLCHICINE 0.6 MG TAB PO (09:40)
[2018-04-29] MEDS: amLODIPine 10 MG TAB PO (09:40)
[2018-04-29] MEDS: levETIRAcetam 250MG TABLET (KEPPRA) PO (09:40)
[2018-04-29] MEDS: PARoxetine 20 MG TAB PO (09:40)
[2018-04-29] MEDS: RIVAROXABAN 20 MG TAB (XARELTO) PO (09:41)
== END 2018-04-29 15:33 | disposition home health service (06) | DRG 301 ==
LOC: M ED INP 04-22 01:12 → M ED 20:58 → M MSPAV 04-22 14:58
PROC: 0S9C4ZZ Drainage of Right Knee Joint, Percutaneous Endoscopic Approach (ICD-10-PCS; principal; 2018-04-24 22:48)
DX: I82.411 Acute embolism and thrombosis of right femoral vein (principal); I82.431 Acute embolism and thrombosis of right popliteal vein; G40.909 Epilepsy, unspecified, not intractable, without status epilepticus; F41.9 Anxiety disorder, unspecified; F32.9 Major depressive disorder, single episode, unspecified; F17.210 Nicotine dependence, cigarettes, uncomplicated; F10.10 Alcohol abuse, uncomplicated; F17.220 Nicotine dependence, chewing tobacco, uncomplicated; M94.261 Chondromalacia, right knee; K21.9 Gastro-esophageal reflux disease without esophagitis; M10.071 Idiopathic gout, right ankle and foot; R26.89 Other abnormalities of gait and mobility; F42.9 Obsessive-compulsive disorder, unspecified; M25.461 Effusion, right knee; I10 Essential (primary) hypertension; Z95.828 Presence of other vascular implants and grafts; Z79.01 Long term (current) use of anticoagulants; Z79.899 Other long term (current) drug therapy; Z87.820 Personal history of traumatic brain injury

== ENCOUNTER → 2018-05-05 | Outpatient (REF) | payer MEDICARE, MEDICAID ==
[2018-05-05 18:54] LABS: BASO % 0.4 % (0.0-1.0); EOS % 0.3 % (0.0-3.0); HEMATOCRIT 51.9 % (42.0-52.0); HEMOGLOBIN 17.7 g/dl (13.5-17.5); IMMATURE GRANULOCYTE % 0.6 % (0-3.0); LYMPH # 1.3 10^3/uL (1.5-4.5); LYMPH % 13.5 % (24.0-44.0); MEAN CORPUSCULAR HEMOGLOBIN 33.1 pg (27.0-33.0); MEAN CORPUSCULAR HGB CONC 34.1 g/dl (32.0-36.5); MEAN CORPUSCULAR VOLUME 97.2 fl (80.0-96.0); MONO # 0.4 10^3/uL (0.0-0.8); MONO % 4.4 % (0.0-5.0); NEUTROPHILS # 7.7 10^3/uL (1.8-7.7); NEUTROPHILS % 80.8 % (36.0-66.0); PLATELET COUNT, AUTOMATED 351 10^3/uL (150-450); RED BLOOD COUNT 5.34 10^6/uL (4.30-6.10); WHITE BLOOD COUNT 9.6 10^3/uL (4.0-10.0)
== END ==
LOC: M LAB REF 18:37
DX: D75.1 Secondary polycythemia (principal)
CPT/HCPCS: 85025

== ENCOUNTER 2018-05-26 08:07 | Inpatient (IN) | payer MEDICARE, MEDICAID ==
[2018-05-26] MEDS: levETIRAcetam 250MG TABLET (KEPPRA) PO ×2 (09:00→20:25)
[2018-05-26 09:41] LABS: BASO # 0.1 10^3/uL (0.0-0.2); BASO % 0.6 % (0.0-1.0); EOS # 0.3 10^3/uL (0.0-0.50); EOS % 2.3 % (0.0-3.0); HEMATOCRIT 46.6 % (42.0-52.0); IMMATURE GRANULOCYTE % 0.7 % (0-3.0); LYMPH # 1.5 10^3/uL (1.5-4.5); LYMPH % 12.5 % (24.0-44.0); MEAN CORPUSCULAR HEMOGLOBIN 32.5 pg (27.0-33.0); MEAN CORPUSCULAR HGB CONC 34.3 g/dl (32.0-36.5); MEAN CORPUSCULAR VOLUME 94.5 fl (80.0-96.0); MONO # 1.1 10^3/uL (0.0-0.8); MONO % 9.2 % (0.0-5.0); NEUTROPHILS # 8.7 10^3/uL (1.8-7.7); NEUTROPHILS % 74.7 % (36.0-66.0); PLATELET COUNT, AUTOMATED 241 10^3/uL (150-450); RED BLOOD COUNT 4.93 10^6/uL (4.30-6.10); RED CELL DISTRIBUTION WIDTH 12.5 % (11.5-14.5); WHITE BLOOD COUNT 11.7 10^3/uL (4.0-10.0)
[2018-05-26 10:37] LABS: ALBUMIN 3.6 GM/DL (3.2-5.2); ALBUMIN/GLOBULIN RATIO 0.82 (1.00-1.93); ALKALINE PHOSPHATASE 141 U/L (45-117); ALT/SGPT 45 U/L (12-78); ANION GAP 5 MEQ/L (8-16); AST/SGOT 23 U/L (7-37); BILIRUBIN,DIRECT 0.3 MG/DL (0.0-0.2); BILIRUBIN,TOTAL 0.7 MG/DL (0.2-1.0); BLOOD UREA NITROGEN 4 MG/DL (7-18); CALCIUM LEVEL 9.1 MG/DL (8.5-10.1); CARBON DIOXIDE LEVEL 28 MEQ/L (21-32); CHLORIDE LEVEL 104 MEQ/L (98-107); CREATININE FOR GFR 0.92 MG/DL (0.70-1.30); GLOMERULAR FILTRATION RATE > 60.0 (>60); GLUCOSE, FASTING 99 MG/DL (70-100); SODIUM LEVEL 137 MEQ/L (136-145)
[2018-05-26] MEDS: traMADol 50 MG TAB PO (11:08)
[2018-05-26 13:43] LABS: INR 1.12; PROTHROMBIN TIME 14.5 SECONDS (12.1-14.4)
[2018-05-26 13:44] LABS: PARTIAL THROMBOPLASTIN TIME 32.8 SECONDS (25.4-37.6)
[2018-05-26] MEDS: HEPARIN DRIP 25,000 UNITS in APPROPRIATE DILUENT 1 EA IV ×2 (14:30→21:45)
[2018-05-26] MEDS: amLODIPine 10 MG TAB PO (15:31)
[2018-05-26] MEDS: PARoxetine 20 MG TAB PO (15:31)
[2018-05-26] MEDS: POTASSIUM CHLORIDE 10 MEQ SR TABLET PO (15:32)
[2018-05-26] MEDS: ACETAMINOPHEN TAB 650MG DOSE (2X325MG) PO ×2 (17:42→22:37)
[2018-05-26] MEDS: MORPHINE 4 MG/ML 1ML VIAL/SYRINGE (J2270) IV (20:26)
[2018-05-26 21:04] LABS: PARTIAL THROMBOPLASTIN TIME 40.4 SECONDS (25.4-37.6)
[2018-05-26] MEDS: LACOSAMIDE 50 MG TAB (VIMPAT) PO (23:58)
[2018-05-27] MEDS: MORPHINE 4 MG/ML 1ML VIAL/SYRINGE (J2270) IV (02:35)
[2018-05-27 05:10] LABS: PARTIAL THROMBOPLASTIN TIME 67.3 SECONDS (25.4-37.6)
[2018-05-27 05:12] LABS: HEMATOCRIT 42.5 % (42.0-52.0); HEMOGLOBIN 14.4 g/dl (13.5-17.5); MEAN CORPUSCULAR HEMOGLOBIN 32.6 pg (27.0-33.0); MEAN CORPUSCULAR HGB CONC 33.9 g/dl (32.0-36.5); MEAN CORPUSCULAR VOLUME 96.2 fl (80.0-96.0); PLATELET COUNT, AUTOMATED 230 10^3/uL (150-450); RED BLOOD COUNT 4.42 10^6/uL (4.30-6.10); RED CELL DISTRIBUTION WIDTH 12.6 % (11.5-14.5); WHITE BLOOD COUNT 8.2 10^3/uL (4.0-10.0)
[2018-05-27 05:15] LABS: ANION GAP 8 MEQ/L (8-16); BLOOD UREA NITROGEN 8 MG/DL (7-18); CALCIUM LEVEL 8.8 MG/DL (8.5-10.1); CARBON DIOXIDE LEVEL 24 MEQ/L (21-32); CHLORIDE LEVEL 111 MEQ/L (98-107); CREATININE FOR GFR 0.82 MG/DL (0.70-1.30); GLOMERULAR FILTRATION RATE > 60.0 (>60); GLUCOSE, FASTING 119 MG/DL (70-100); POTASSIUM SERUM 3.4 MEQ/L (3.5-5.1); SODIUM LEVEL 143 MEQ/L (136-145)
[2018-05-27] MEDS: HEPARIN DRIP 25,000 UNITS in APPROPRIATE DILUENT 1 EA IV ×5 (06:00→22:35)
[2018-05-27] MEDS: POTASSIUM CHLORIDE 10 MEQ SR TABLET PO (06:35)
[2018-05-27] MEDS: ACETAMINOPHEN TAB 650MG DOSE (2X325MG) PO (06:38)
[2018-05-27] MEDS: levETIRAcetam 250MG TABLET (KEPPRA) PO ×2 (08:58→20:32)
[2018-05-27] MEDS: PARoxetine 20 MG TAB PO (08:58)
[2018-05-27] MEDS: amLODIPine 10 MG TAB PO (08:58)
[2018-05-27] MEDS: LACOSAMIDE 50 MG TAB (VIMPAT) PO ×2 (08:58→20:32)
[2018-05-27] MEDS: PERCOCET 5MG/325MG TAB PO ×2 (09:06→20:33)
[2018-05-27] MEDS ORDERED: KETOROLAC 30 MG/ML VIAL (J1885) IV (12:15)
[2018-05-27] MEDS: predniSONE 20 MG TAB PO (12:37)
[2018-05-27] MEDS: ALLOPURINOL 100 MG TAB PO (12:37)
[2018-05-27 13:06] LABS: PARTIAL THROMBOPLASTIN TIME 48.2 SECONDS (25.4-37.6)
[2018-05-27] MEDS: HEPARIN SOD (PORCINE) 5000 UNITS/ML VIAL IV (13:49)
[2018-05-28] MEDS: PERCOCET 5MG/325MG TAB PO ×3 (01:25→17:26)
[2018-05-28 02:10] LABS: PARTIAL THROMBOPLASTIN TIME 89.7 SECONDS (25.4-37.6)
[2018-05-28 08:25] LABS: PARTIAL THROMBOPLASTIN TIME 72.8 SECONDS (25.4-37.6)
[2018-05-28] MEDS: ALLOPURINOL 100 MG TAB PO (09:35)
[2018-05-28] MEDS: levETIRAcetam 250MG TABLET (KEPPRA) PO ×2 (09:35→20:38)
[2018-05-28] MEDS: amLODIPine 10 MG TAB PO (09:35)
[2018-05-28] MEDS: LACOSAMIDE 50 MG TAB (VIMPAT) PO ×2 (09:35→20:38)
[2018-05-28] MEDS: PARoxetine 20 MG TAB PO (09:36)
[2018-05-28] MEDS: predniSONE 20 MG TAB PO (09:36)
[2018-05-28] MEDS: ENOXAPARIN 100MG/1ML SYRINGE (J1650) SC ×2 (14:20→22:59)
[2018-05-28] MEDS: WARFARIN SOD 7.5 MG TAB PO (17:00)
[2018-05-28] MEDS: ONDANSETRON 4MG/2ML VIAL (J2405) IV (18:33)
[2018-05-29] MEDS: PERCOCET 5MG/325MG TAB PO ×2 (05:32→10:37)
[2018-05-29 08:39] LABS: HEMATOCRIT 41.6 % (42.0-52.0); HEMOGLOBIN 14.3 g/dl (13.5-17.5); MEAN CORPUSCULAR HGB CONC 34.4 g/dl (32.0-36.5); MEAN CORPUSCULAR VOLUME 96.1 fl (80.0-96.0); PLATELET COUNT, AUTOMATED 300 10^3/uL (150-450); RED BLOOD COUNT 4.33 10^6/uL (4.30-6.10); RED CELL DISTRIBUTION WIDTH 12.6 % (11.5-14.5); WHITE BLOOD COUNT 8.1 10^3/uL (4.0-10.0)
[2018-05-29 08:56] LABS: PARTIAL THROMBOPLASTIN TIME 32.1 SECONDS (25.4-37.6); PROTHROMBIN TIME 12.2 SECONDS (12.1-14.4)
[2018-05-29] MEDS: LACOSAMIDE 50 MG TAB (VIMPAT) PO (10:29)
[2018-05-29] MEDS: ALLOPURINOL 100 MG TAB PO (10:30)
[2018-05-29] MEDS: PARoxetine 20 MG TAB PO (10:30)
[2018-05-29] MEDS: levETIRAcetam 250MG TABLET (KEPPRA) PO (10:30)
[2018-05-29] MEDS: OMEPRAZOLE 20 MG CAP PO (10:31)
[2018-05-29] MEDS: predniSONE 20 MG TAB PO (10:31)
[2018-05-29] MEDS: amLODIPine 10 MG TAB PO (10:32)
[2018-05-29] MEDS: ENOXAPARIN 100MG/1ML SYRINGE (J1650) SC (10:38)
== END 2018-05-29 13:30 | disposition home or self-care (01) | DRG 301 ==
LOC: M MSPAV 05-27 18:30 → M ED 08:07 → M ED INP 13:27 → M PCU 15:14
DX: I82.411 Acute embolism and thrombosis of right femoral vein (principal); I82.511 Chronic embolism and thrombosis of right femoral vein; E87.6 Hypokalemia; I10 Essential (primary) hypertension; G40.909 Epilepsy, unspecified, not intractable, without status epilepticus; F17.220 Nicotine dependence, chewing tobacco, uncomplicated; F17.210 Nicotine dependence, cigarettes, uncomplicated; M10.061 Idiopathic gout, right knee; F32.9 Major depressive disorder, single episode, unspecified; R19.7 Diarrhea, unspecified; T50.4X5A Adverse effect of drugs affecting uric acid metabolism, initial encounter; F10.10 Alcohol abuse, uncomplicated; F41.9 Anxiety disorder, unspecified; Z86.711 Personal history of pulmonary embolism; Z79.01 Long term (current) use of anticoagulants; Z79.899 Other long term (current) drug therapy; Z88.8 Allergy status to other drugs, medicaments and biological substances; Z95.828 Presence of other vascular implants and grafts; Z87.820 Personal history of traumatic brain injury

== ENCOUNTER → 2018-06-01 | Outpatient (REF) | payer MEDICARE, MEDICAID ==
[2018-06-01 13:05] LABS: BASO # 0.1 10^3/uL (0.0-0.2); BASO % 0.7 % (0.0-1.0); EOS # 0.1 10^3/uL (0.0-0.50); EOS % 1.1 % (0.0-3.0); HEMOGLOBIN 16.3 g/dl (13.5-17.5); IMMATURE GRANULOCYTE % 1.4 % (0-3.0); LYMPH # 3.8 10^3/uL (1.5-4.5); LYMPH % 35.6 % (24.0-44.0); MEAN CORPUSCULAR HEMOGLOBIN 32.4 pg (27.0-33.0); MEAN CORPUSCULAR HGB CONC 33.3 g/dl (32.0-36.5); MEAN CORPUSCULAR VOLUME 97.4 fl (80.0-96.0); MONO # 1.1 10^3/uL (0.0-0.8); MONO % 10.1 % (0.0-5.0); NEUTROPHILS # 5.5 10^3/uL (1.8-7.7); NEUTROPHILS % 51.1 % (36.0-66.0); PLATELET COUNT, AUTOMATED 364 10^3/uL (150-450); RED BLOOD COUNT 5.03 10^6/uL (4.30-6.10); RED CELL DISTRIBUTION WIDTH 12.8 % (11.5-14.5); WHITE BLOOD COUNT 10.7 10^3/uL (4.0-10.0)
[2018-06-01 13:13] LABS: INR 1.76; PROTHROMBIN TIME 20.9 SECONDS (12.1-14.4)
== END ==
LOC: M LAB REF 12:15
DX: I82.629 Acute embolism and thrombosis of deep veins of unspecified upper extremity (principal); D75.1 Secondary polycythemia
CPT/HCPCS: 85610

== ENCOUNTER → 2018-06-05 | Outpatient (REF) | payer MEDICARE, MEDICAID ==
[2018-06-05 13:28] LABS: PROTHROMBIN TIME 27.5 SECONDS (12.1-14.4)
== END ==
LOC: M LAB REF 11:54
DX: I82.629 Acute embolism and thrombosis of deep veins of unspecified upper extremity (principal); Z51.81 Encounter for therapeutic drug level monitoring; Z79.01 Long term (current) use of anticoagulants
CPT/HCPCS: 85610

== ENCOUNTER → 2018-07-11 | Outpatient (REF) | payer OTHER, MEDICAID ==
[~2018-07-11] MED LIST changes: +ACET325T PO; +ALLO10TA PO; -AMLO10TA2 PO; +AMLO10TA5 PO; +ARIP1TAB6; +AUGM875T28 PO; +COLC1TAB13 PO; +COLC1TAB14 PO; +COUM7.5T PO; +DICL75TA; +ELIQ2.5T PO; +FLUO40CA PO; +IBUP-1022 PO; +IBUPOTC PO; +KETO10TAB PO; +LEVE750T5 PO; +LIDVISCBTL SSP; +LOVE0.8I SC; +NORCOTAB PO; +OMEP20CA3 PO; -PANT40TA2 PO; +PANT40TA3 PO; +PARO20TA3; +PARO40TA3 PO; +PERCOCET PO; +PRED10TA2 PO; +PRED20TA PO; +ROBA500T PO; +TRAM50TA2 PO; +TRAZ-160 PO; -TRAZ50TA11 PO; -VITA100T2 PO; +VITA100T8 PO; +XARE10TA PO; +XARE20TA PO
[2018-07-11 21:23] LABS: INR 0.98; PROTHROMBIN TIME 13.1 SECONDS (12.1-14.4)
== END ==
LOC: M LAB REF 16:39
PROVIDERS: ATTEND Family Medicine Addiction Medicine
DX: I82.629 Acute embolism and thrombosis of deep veins of unspecified upper extremity (principal)

== ENCOUNTER → 2018-07-20 | Outpatient (REF) | payer OTHER, MEDICAID ==
[2018-07-20 19:32] LABS: INR 1.44; PROTHROMBIN TIME 17.7 SECONDS (12.1-14.4)
== END ==
LOC: M LAB REF 18:37
PROVIDERS: ATTEND Family Medicine Addiction Medicine
DX: I82.629 Acute embolism and thrombosis of deep veins of unspecified upper extremity (principal)

== ENCOUNTER 2018-08-12 11:08 | Emergency (ER) | payer MEDICARE, MEDICAID, OTHER ==
[~2018-08-12] VITALS: Ht 185.4 cm; Wt 87.3 kg
[~2018-08-12 11:08] MED LIST changes: +HYDR-3715 PO; -NORCOTAB PO; +SERT-141 PO; -SERT50TA PO; +TRAZ1TAB6 PO; -TRAZ25TA PO; -VICO5TAB16 PO; +VICO5TAB17 PO
[2018-08-12] MEDS ORDERED: COUM6TAB PO (11:53)
[2018-08-12] MEDS ORDERED: HYDR-3716 PO (11:53)
[2018-08-12] MEDS ORDERED: ANEXSIA, NORCO 7.5MG/325MG TABLET(HYDROCODONE/APAP) PO ONE (12:30)
[2018-08-12 13:08] LABS: INR 2.92; PROTHROMBIN TIME 31.1 SECONDS (12.1-14.4)
[2018-08-12 13:09] LABS: PARTIAL THROMBOPLASTIN TIME 60.5 SECONDS (25.4-37.6)
[2018-08-12 13:48] VITALS: BP 143/85
--- NOTE | 2018-08-12 14:20 | REP ---
RIGHT LOWER EXTREMITY DUPLEX DOPPLER VENOUS ULTRASOUND: Real-time compression and duplex Doppler interrogation of the right lower extremity deep vein system is performed. The right common femoral vein is compressible with no intraluminal thrombus, as is the right popliteal vein. There is diffuse thrombus throughout the right femoral vein, which is occluded in the upper two-thirds and partially occluded in the distal third. IMPRESSION: Deep vein thrombosis right femoral vein. Electronically Signed by Donis Betancourt MD 08/12/2018 07:34 P
== END 2018-08-12 14:17 | disposition home or self-care (01) ==
LOC: M ED 11:08
DX: I80.11 Phlebitis and thrombophlebitis of right femoral vein (principal); Z86.718 Personal history of other venous thrombosis and embolism; K21.9 Gastro-esophageal reflux disease without esophagitis; F42.9 Obsessive-compulsive disorder, unspecified; F32.9 Major depressive disorder, single episode, unspecified; Z79.899 Other long term (current) drug therapy; Z79.01 Long term (current) use of anticoagulants; F17.210 Nicotine dependence, cigarettes, uncomplicated; Z88.8 Allergy status to other drugs, medicaments and biological substances

== ENCOUNTER 2018-10-24 12:23 | Emergency (ER) | payer MEDICARE, MEDICAID ==
[~2018-10-24] VITALS: Ht 185.4 cm; Wt 86.4 kg
[~2018-10-24 12:23] MED LIST changes: +COUM6TAB PO; +HYDR-3716 PO; -TRAZ-160 PO; +TRAZ-252 PO
[2018-10-24] MEDS ORDERED: BUSP10TA (12:32)
[2018-10-24 13:55] LABS: BASO # 0.1 10^3/uL (0.0-0.2); BASO % 0.4 % (0.0-1.0); EOS # 0.1 10^3/uL (0.0-0.50); EOS % 0.6 % (0.0-3.0); HEMATOCRIT 54.3 % (42.0-52.0); HEMOGLOBIN 18.6 g/dl (13.5-17.5); LYMPH # 1.2 10^3/uL (1.5-4.5); LYMPH % 9.9 % (24.0-44.0); MEAN CORPUSCULAR HEMOGLOBIN 31.9 pg (27.0-33.0); MEAN CORPUSCULAR HGB CONC 34.3 g/dl (32.0-36.5); MEAN CORPUSCULAR VOLUME 93.1 fl (80.0-96.0); MONO # 1.1 10^3/uL (0.0-0.8); MONO % 9.2 % (0.0-5.0); NEUTROPHILS # 9.5 10^3/uL (1.8-7.7); NEUTROPHILS % 79.5 % (36.0-66.0); PLATELET COUNT, AUTOMATED 195 10^3/uL (150-450); RED BLOOD COUNT 5.83 10^6/uL (4.30-6.10)
[2018-10-24 14:06] LABS: INR 2.16; PROTHROMBIN TIME 24.5 SECONDS (12.1-14.4)
[2018-10-24 14:14] LABS: ALBUMIN 4.6 GM/DL (3.2-5.2); ALT/SGPT 37 U/L (12-78); BILIRUBIN,DIRECT 0.2 MG/DL (0.0-0.2); BILIRUBIN,TOTAL 0.9 MG/DL (0.2-1.0); BLOOD UREA NITROGEN 8 MG/DL (7-18); CALCIUM LEVEL 9.3 MG/DL (8.5-10.1); CARBON DIOXIDE LEVEL 25 MEQ/L (21-32); CHLORIDE LEVEL 106 MEQ/L (98-107); CREATININE FOR GFR 1.09 MG/DL (0.70-1.30); GLOMERULAR FILTRATION RATE > 60.0 (>60); GLUCOSE, FASTING 141 MG/DL (70-100); LIPASE 127 U/L (73-393); SODIUM LEVEL 140 MEQ/L (136-145); TOTAL PROTEIN 8.6 GM/DL (6.4-8.2)
--- NOTE | 2018-10-24 14:37 | REP ---
LEFT FOOT SERIES: FOUR VIEWS. HISTORY: Possible gout flare. FINDINGS: Four views of the left foot demonstrate diffuse osteopenia. There is mild spurring at the 1st MTP joint. No erosive changes seen. No soft tissue calcification is noted. IMPRESSION: Mild diffuse osteopenia. Osteoarthritic spurring at the 1st MTP joint. No other abnormality. Electronically Signed by Kody Carter MD 10/24/2018 08:43 P
[2018-10-24] MEDS ORDERED: ISOVUE-370 76% 100ML VIAL (Q9967) As Ordered ONE (14:52)
--- NOTE | 2018-10-24 14:59 | REP ---
BILATERAL LOWER EXTREMITY DUPLEX DOPPLER VENOUS ULTRASOUND: Real-time compression and duplex Doppler interrogation of bilateral lower extremity deep venous systems is performed. There is partial thrombosis of the bilateral common femoral veins. There is also diffuse partial thrombosis of the superficial femoral veins with complete thrombosis in the mid right superficial femoral vein and in the proximal to mid left superficial femoral vein. No thrombus is seen in the popliteal veins. Electronically Signed by Donis Betancourt MD 10/25/2018 10:28 A
[2018-10-24] MEDS ORDERED: NORCO, ANEXSIA 5/325MG TABLET (HYDROcodone/ACETAMINOPHEN) PO ONE (15:15)
[2018-10-24] MEDS ORDERED: COLC1TAB13 PO (15:40)
[2018-10-24] MEDS ORDERED: PRED20TA PO (15:40)
[2018-10-24] MEDS ORDERED: POTASSIUM CHLORIDE 10 MEQ SR TABLET PO ONE (16:00)
--- NOTE | 2018-10-24 16:01 | REP ---
CT ANGIOGRAM OF THE CHEST: TECHNIQUE: Axial contrast enhanced images from the thoracic inlet to the upper abdomen using 100 mL Isovue 370 intravenous contrast material with multiplanar reformations. No CT evidence of pulmonary embolism. There is no thoracic aortic aneurysm or dissection. The heart is not enlarged and there is no pleural or pericardial effusion. There is no mediastinal, hilar, or chest wall lymphadenopathy. There is a small hiatal hernia. There is a subcentimeter nodule in the right lobe of the thyroid. Bibasilar fibro atelectatic changes are present. There appears to be fatty infiltration of the liver. There is an old compression of an upper thoracic vertebral body unchanged since prior CT of 02/07/2017. IMPRESSION: No CT evidence of pulmonary embolism. Electronically Signed by Donis Betancourt MD 10/25/2018 10:31 A
[2018-10-24] MEDS ORDERED: KLOR20TA42 PO (16:06)
[2018-10-24 17:03] VITALS: BP 131/84
--- NOTE | 2018-10-24 23:25 | ECGEPIP ---
Stationary ECG Study [facility] - ED Test Date: 2018-10-24 Pat Name: CHUCKIE WANG Department: Room: - Gender: M [employer]: : 1980 Requested By: SAMANTA Bass PA-C Order Number: [id number] Reading MD: Tomy Ang Measurements Intervals [place] Rate: 70 P: 44 NC: 192 QRS: 47 QRSD: 95 T: 32 QT: 381 QTc: 413 Interpretive Statements SINUS RHYTHM NONSPECIFIC T-WAVE ABNORMALITY BENIGN EARLY REPOLARIZATION SIMILAR TO 10/06/15 Electronically Signed On 10-24-2018 23:24:58 EDT by Tomy Ang
== END 2018-10-24 17:06 | disposition home or self-care (01) ==
LOC: M ED 12:23
DX: M10.9 Gout, unspecified (principal); I82.413 Acute embolism and thrombosis of femoral vein, bilateral; E87.6 Hypokalemia; I10 Essential (primary) hypertension; M51.26 Other intervertebral disc displacement, lumbar region; G40.909 Epilepsy, unspecified, not intractable, without status epilepticus; F33.9 Major depressive disorder, recurrent, unspecified; F41.9 Anxiety disorder, unspecified; K21.9 Gastro-esophageal reflux disease without esophagitis; Z79.899 Other long term (current) drug therapy; Z79.01 Long term (current) use of anticoagulants; Z88.8 Allergy status to other drugs, medicaments and biological substances; F17.210 Nicotine dependence, cigarettes, uncomplicated
CPT/HCPCS: 36415; 71275; 73630; 80048; 80076; 83690; 85025; 85610; 93005; 93970; 99284; Q9967

== ENCOUNTER → 2018-10-27 | Outpatient (REF) | payer OTHER, MEDICAID ==
[~2018-10-27] MED LIST changes: +BUSP10TA; +KLOR20TA42 PO; +TRAZ-160 PO; -TRAZ-252 PO
[2018-10-27 13:59] LABS: BASO % 0.1 % (0.0-1.0); HEMATOCRIT 50.6 % (42.0-52.0); HEMOGLOBIN 17.2 g/dl (13.5-17.5); LYMPH # 1.2 10^3/uL (1.5-4.5); MEAN CORPUSCULAR HEMOGLOBIN 32.1 pg (27.0-33.0); MEAN CORPUSCULAR VOLUME 94.6 fl (80.0-96.0); MONO # 0.7 10^3/uL (0.0-0.8); MONO % 6.3 % (0.0-5.0); NEUTROPHILS # 9.1 10^3/uL (1.8-7.7); NEUTROPHILS % 82.1 % (36.0-66.0); PLATELET COUNT, AUTOMATED 224 10^3/uL (150-450); RED BLOOD COUNT 5.35 10^6/uL (4.30-6.10)
[2018-10-27 14:28] LABS: INR 3.62; PROTHROMBIN TIME 36.9 SECONDS (12.1-14.4)
[2018-10-27 14:40] LABS: ALBUMIN 4.5 GM/DL (3.2-5.2); ALT/SGPT 41 U/L (12-78); BILIRUBIN,TOTAL 0.3 MG/DL (0.2-1.0); BLOOD UREA NITROGEN 7 MG/DL (7-18); CALCIUM LEVEL 9.4 MG/DL (8.5-10.1); CARBON DIOXIDE LEVEL 24 MEQ/L (21-32); CHLORIDE LEVEL 113 MEQ/L (98-107); CREATININE FOR GFR 0.92 MG/DL (0.70-1.30); GLOMERULAR FILTRATION RATE > 60.0 (>60); GLUCOSE, FASTING 94 MG/DL (70-100); POTASSIUM SERUM 3.6 MEQ/L (3.5-5.1); SODIUM LEVEL 144 MEQ/L (136-145); TOTAL PROTEIN 7.6 GM/DL (6.4-8.2)
== END ==
LOC: M LAB REF 12:30
PROVIDERS: ATTEND Family Medicine Addiction Medicine
DX: D75.1 Secondary polycythemia (principal); I82.629 Acute embolism and thrombosis of deep veins of unspecified upper extremity

== ENCOUNTER 2018-12-01 21:19 | Emergency (ER) | payer MEDICARE, MEDICAID ==
[~2018-12-01] VITALS: Ht 185.4 cm; Wt 87.3 kg
[~2018-12-01 21:19] MED LIST changes: -TRAZ-160 PO; +TRAZ-252 PO
[2018-12-01] MEDS ORDERED: CYMB1CAP5 PO (21:34)
[2018-12-01 22:40] LABS: BASO # 0.1 10^3/uL (0.0-0.2); BASO % 0.5 % (0.0-1.0); EOS # 0.1 10^3/uL (0.0-0.50); EOS % 0.9 % (0.0-3.0); HEMOGLOBIN 17.4 g/dl (13.5-17.5); LYMPH # 1.9 10^3/uL (1.5-4.5); MEAN CORPUSCULAR HEMOGLOBIN 31.1 pg (27.0-33.0); MEAN CORPUSCULAR HGB CONC 34.8 g/dl (32.0-36.5); MEAN CORPUSCULAR VOLUME 89.4 fl (80.0-96.0); MONO # 1.1 10^3/uL (0.0-0.8); MONO % 8.5 % (0.0-5.0); NEUTROPHILS # 9.5 10^3/uL (1.8-7.7); NEUTROPHILS % 74.9 % (36.0-66.0); PLATELET COUNT, AUTOMATED 210 10^3/uL (150-450); RED BLOOD COUNT 5.59 10^6/uL (4.30-6.10); WHITE BLOOD COUNT 12.7 10^3/uL (4.0-10.0)
[2018-12-01] MEDS ORDERED: predniSONE 20 MG TAB PO ONE (22:45)
[2018-12-01 22:58] LABS: ERYTHROCYTE SEDIMENTATION RATE 3 mm/hr (0-15)
[2018-12-01 23:11] LABS: BLOOD UREA NITROGEN 4 MG/DL (7-18); C REACTIVE PROTEIN QUANTITATIV 0.78 MG/DL (0.00-0.30); CALCIUM LEVEL 8.8 MG/DL (8.5-10.1); CARBON DIOXIDE LEVEL 22 MEQ/L (21-32); CHLORIDE LEVEL 109 MEQ/L (98-107); CREATININE FOR GFR 0.96 MG/DL (0.70-1.30); GLOMERULAR FILTRATION RATE > 60.0 (>60); GLUCOSE, FASTING 97 MG/DL (70-100); POTASSIUM SERUM 3.2 MEQ/L (3.5-5.1); SODIUM LEVEL 142 MEQ/L (136-145); URIC ACID 6.1 MG/DL (3.5-7.2)
[2018-12-01] MEDS ORDERED: PRED20TA PO (23:24)
[2018-12-01] MEDS ORDERED: COLC1TAB13 PO (23:24)
[2018-12-01] MEDS ORDERED: POTASSIUM CHLORIDE 10 MEQ SR TABLET PO ONE (23:30)
[2018-12-01 23:46] VITALS: BP 132/86
== END 2018-12-01 23:48 | disposition home or self-care (01) ==
LOC: M ED 21:19
DX: M10.9 Gout, unspecified (principal); F17.210 Nicotine dependence, cigarettes, uncomplicated; Z79.01 Long term (current) use of anticoagulants; Z79.899 Other long term (current) drug therapy

== ENCOUNTER 2019-01-09 21:59 | Inpatient (IN) | payer MEDICARE, MEDICAID ==
[~2019-01-09] VITALS: Ht 185.4 cm; Wt 94.5 kg
[~2019-01-09 21:59] MED LIST changes: +CYMB1CAP5 PO; -OMEP20CA3 PO; +OMEP20CA4 PO
[2019-01-09] MEDS ORDERED: ONDANSETRON 4MG/2ML VIAL (J2405) IV ONE (22:30)
[2019-01-09] MEDS ORDERED: NS 1,000 ML IV SCH (22:30)
[2019-01-09] MEDS ORDERED: MORPHINE 4 MG/ML 1ML VIAL/SYRINGE (J2270) IV ONE ×2 (22:30→23:45)
[2019-01-09 22:42] LABS: HEMATOCRIT 44.1 % (42.0-52.0); HEMOGLOBIN 15.1 g/dl (13.5-17.5); MEAN CORPUSCULAR HEMOGLOBIN 30.9 pg (27.0-33.0); MEAN CORPUSCULAR HGB CONC 34.2 g/dl (32.0-36.5); MEAN CORPUSCULAR VOLUME 90.4 fl (80.0-96.0); PLATELET COUNT, AUTOMATED 226 10^3/uL (150-450); RED BLOOD COUNT 4.88 10^6/uL (4.30-6.10); WHITE BLOOD COUNT 10.5 10^3/uL (4.0-10.0)
[2019-01-09 22:50] LABS: CALCIUM LEVEL 9.2 MG/DL (8.5-10.1); CREATININE FOR GFR 1.45 MG/DL (0.70-1.30); GLOMERULAR FILTRATION RATE 57.4 (>60); POTASSIUM SERUM 3.5 MEQ/L (3.5-5.1)
[2019-01-09 22:53] LABS: INR 2.49; PROTHROMBIN TIME 26.8 SECONDS (11.8-14.0)
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
[2019-01-09] MEDS ORDERED: PHYTONADIONE 10MG/ML INJECTION (J3430) SC ONE (23:45)
--- NOTE | 2019-01-09 23:56 | REP ---
Clinical: Hip fracture. Technique: Portable supine AP view. Comparison: 10/06/2015. Findings: Examination is severely limited by underpenetration and positioning. Interstitial edema and infiltrates cannot be excluded. No obvious effusion. No pneumothorax. Electronically Signed by Tom Almaraz MD 01/09/2019 11:47 P
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
[2019-01-10] MEDS ORDERED: ALLO100T PO (00:17)
[2019-01-10] MEDS ORDERED: BUSP15TA90 PO (00:17)
[2019-01-10] MEDS ORDERED: WARF-60 PO (00:17)
[2019-01-10] MEDS ORDERED: DULO30CA9 PO (00:17)
[2019-01-10] MEDS: HYDROMORPHONE HCL 0.5 MG/ 0.5 ML SYRINGE (J1170 PER 1) IV PRN ×4 (00:48→13:59)
[2019-01-10] MEDS: LACOSAMIDE 50 MG TAB (VIMPAT) PO SCH ×3 (01:21→20:15)
[2019-01-10] MEDS: levETIRAcetam 250MG TABLET (KEPPRA) PO SCH ×3 (01:21→20:16)
[2019-01-10] MEDS: busPIRone 5 MG TAB PO SCH ×4 (01:22→20:12)
[2019-01-10] MEDS: amLODIPine 10 MG TAB PO SCH ×2 (01:22→20:13)
[2019-01-10] MEDS: OMEPRAZOLE 20 MG CAP PO SCH ×2 (01:23→20:15)
[2019-01-10] MEDS: PARoxetine 20 MG TAB PO SCH ×2 (01:23→20:15)
[2019-01-10] MEDS: DULoxetine 30 MG CAP (CYMBALTA) PO SCH ×2 (01:23→20:15)
[2019-01-10] MEDS: ALLOPURINOL 100 MG TAB PO SCH ×2 (01:23→20:15)
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
[2019-01-10 01:51] VITALS: BP 132/83
[2019-01-10] MEDS: LR 1,000 ML IV SCH ×3 (02:00→20:30)
--- NOTE | 2019-01-10 03:43 | ECGEPIP ---
[facility] - ED Test Date: 2019-01-09 Pat Name: CHUCKIE WANG Department: Room: - Gender: Male Education Rn: : 1980 Requested By: MARCELINO NIEVES Order Number: [id number] Reading MD: Tomy Ang Measurements Intervals [place] Rate: 82 P: 78 [place]: 175 QRS: 63 QRSD: 98 T: 34 QT: 366 QTc: 428 Interpretive Statements SINUS RHYTHM BENIGN EARLY REPOLARIZATION BASELINE ARTIFACT AFFECTS INTERPRETATION SIMILAR TO 10/24/18 Electronically Signed on 01-10-2019 3:43:09 EDT by Tomy Ang
[2019-01-10 06:00] VITALS: BP 126/75
[2019-01-10 06:28] LABS: HEMATOCRIT 40.3 % (42.0-52.0); HEMOGLOBIN 13.4 g/dl (13.5-17.5); MEAN CORPUSCULAR HEMOGLOBIN 30.8 pg (27.0-33.0); MEAN CORPUSCULAR HGB CONC 33.3 g/dl (32.0-36.5); MEAN CORPUSCULAR VOLUME 92.6 fl (80.0-96.0); PLATELET COUNT, AUTOMATED 204 10^3/uL (150-450); RED BLOOD COUNT 4.35 10^6/uL (4.30-6.10); WHITE BLOOD COUNT 13.8 10^3/uL (4.0-10.0)
[2019-01-10 06:38] LABS: INR 2.17
[2019-01-10 06:54] LABS: BLOOD UREA NITROGEN 12 MG/DL (7-18); CALCIUM LEVEL 8.1 MG/DL (8.5-10.1); CARBON DIOXIDE LEVEL 27 MEQ/L (21-32); CHLORIDE LEVEL 112 MEQ/L (98-107); CREATININE FOR GFR 0.97 MG/DL (0.70-1.30); GLOMERULAR FILTRATION RATE > 60.0 (>60); GLUCOSE, FASTING 134 MG/DL (70-100); POTASSIUM SERUM 3.8 MEQ/L (3.5-5.1); SODIUM LEVEL 143 MEQ/L (136-145)
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
[2019-01-10 14:01] VITALS: BP 136/80
[2019-01-10 16:06] VITALS: BP 132/89
[2019-01-10] MEDS: HYDROmorphone HCL 2 MG/ML 1ML VIAL (J1170) IV PRN ×2 (17:04→20:11)
[2019-01-10 22:00] VITALS: BP 150/86
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
[2019-01-11] MEDS: HYDROmorphone HCL 2 MG/ML 1ML VIAL (J1170) IV PRN ×2 (00:18→06:12)
[2019-01-11 06:00] VITALS: BP 146/83
[2019-01-11 06:03] LABS: HEMATOCRIT 39.1 % (42.0-52.0); HEMOGLOBIN 13.2 g/dl (13.5-17.5); MEAN CORPUSCULAR HEMOGLOBIN 31.1 pg (27.0-33.0); MEAN CORPUSCULAR HGB CONC 33.8 g/dl (32.0-36.5); MEAN CORPUSCULAR VOLUME 92.2 fl (80.0-96.0); PLATELET COUNT, AUTOMATED 153 10^3/uL (150-450); RED BLOOD COUNT 4.24 10^6/uL (4.30-6.10); WHITE BLOOD COUNT 13.7 10^3/uL (4.0-10.0)
[2019-01-11 06:16] LABS: INR 1.37; PROTHROMBIN TIME 16.6 SECONDS (11.8-14.0)
[2019-01-11 07:31] LABS: BLOOD UREA NITROGEN 6 MG/DL (7-18); CALCIUM LEVEL 8.7 MG/DL (8.5-10.1); CARBON DIOXIDE LEVEL 28 MEQ/L (21-32); CHLORIDE LEVEL 106 MEQ/L (98-107); CREATININE FOR GFR 0.78 MG/DL (0.70-1.30); GLOMERULAR FILTRATION RATE > 60.0 (>60); GLUCOSE, FASTING 124 MG/DL (70-100); POTASSIUM SERUM 3.6 MEQ/L (3.5-5.1); SODIUM LEVEL 138 MEQ/L (136-145)
[2019-01-11] MEDS: LR 1,000 ML IV SCH (07:58)
[2019-01-11] MEDS: LACOSAMIDE 50 MG TAB (VIMPAT) PO SCH ×2 (09:42→21:12)
[2019-01-11] MEDS: busPIRone 5 MG TAB PO SCH ×3 (09:42→21:12)
[2019-01-11] MEDS: levETIRAcetam 250MG TABLET (KEPPRA) PO SCH ×2 (09:42→21:11)
[2019-01-11] MEDS: HYDROMORPHONE HCL 0.5 MG/ 0.5 ML SYRINGE (J1170 PER 1) IV PRN (10:01)
[2019-01-11] MEDS ORDERED: KETAMINE HCL 200 MG/20 ML VIAL As Ordered ONE (12:48)
[2019-01-11] MEDS ORDERED: ceFAZolin 2 GM/D5W 50 ML IV BAG (J0690 PER 500MG) As Ordered ONE (13:13)
[2019-01-11] MEDS ORDERED: ceFAZolin 1GM INJ (J0690 PER 500MG) As Ordered ONE (13:25)
[2019-01-11] MEDS ORDERED: MIDAZOLAM INJ 2 MG/2 ML VIAL (J2250) As Ordered ONE (14:13)
[2019-01-11] MEDS ORDERED: PERCOCET 5MG/325MG TAB PO PRN (14:15)
[2019-01-11] MEDS ORDERED: PERCOCET 5MG/325MG TAB As Ordered ONE (14:21)
[2019-01-11] MEDS: PERCOCET 5MG/325MG TAB PO PRN ×2 (14:25→21:12)
[2019-01-11] MEDS: fentaNYL 100 MCG/2 ML INJECTION (J3010) IV PRN (14:30)
[2019-01-11] MEDS ORDERED: fentaNYL 100 MCG/2 ML INJECTION (J3010) As Ordered ONE (14:39)
[2019-01-11] MEDS ORDERED: METOCLOPRAMIDE INJ 10MG/2ML VIAL (J2765) IV PRN (14:45)
[2019-01-11] MEDS ORDERED: PROMETHAZINE INJ 25 MG/ML VIAL (J2550) IV PRN (14:45)
[2019-01-11] MEDS ORDERED: LR 1,000 ML IV SCH (14:45)
[2019-01-11] MEDS ORDERED: oxyCODONE 5MG TAB PO PRN (14:45)
[2019-01-11] MEDS: PIPERACILLIN/TAZOBACTAM SOD 3.375 GM in D5W MINI-BAG PLUS 50 ML IV SCH ×2 (16:20→21:10)
[2019-01-11] MEDS: MORPHINE 4 MG/ML 1ML VIAL/SYRINGE (J2270) IV PRN (16:36)
--- NOTE | 2019-01-11 16:54 | REP ---
CHEST, TWO VIEWS: Two view of the chest are performed and compared to prior studies. There is bibasilar fibro atelectatic change with poor ventilation of the lungs. No definite infiltrate is seen. Cardiomediastinal silhouette is somewhat magnified by AP supine technique. Study is otherwise unremarkable. IMPRESSION: Poor ventilation with bibasilar fibro atelectatic change. Electronically Signed by Donis Betancourt MD 01/13/2019 10:28 A
[2019-01-11 17:57] VITALS: BP 122/84
--- NOTE | 2019-01-11 18:00 | IPN ---
DATE: 01/11/2019 We were about to do the surgery. I met him in the holding area. Discussed the indications and examined him and when he went to the room with the anesthesiologist, Dr. Nuñez, he noticed that his saturations would not get above 87%, even with 2 liters nasal canula. Previously, last evening and this morning, it was noted that his oxygen saturations were only 92% on 2 liters nasal cannula, so Dr. Nuñez advised, given that the chest x-ray was questionable showing infiltrates and possible interstitial edema (it was a poor quality study), that we should be sure that his lung function is adequate before we proceed with surgery. So, Dr. Nuñez recommended postponing surgery for today and I will be discussing this with Dr. Brianda Amaro, the hospitalist, to let him know.
[2019-01-11] MEDS: MOM 30ML SUSPENSION UDC PO PRN (18:50)
[2019-01-11 20:58] VITALS: BP 127/90
[2019-01-11] MEDS: PARoxetine 20 MG TAB PO SCH (21:10)
[2019-01-11] MEDS: OMEPRAZOLE 20 MG CAP PO SCH (21:11)
[2019-01-11] MEDS: ALLOPURINOL 100 MG TAB PO SCH (21:11)
[2019-01-11] MEDS: DULoxetine 30 MG CAP (CYMBALTA) PO SCH (21:12)
[2019-01-11] MEDS: SENOKOT S TAB PO SCH (21:12)
[2019-01-11] MEDS: amLODIPine 10 MG TAB PO SCH (21:14)
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
[2019-01-12] MEDS: MORPHINE 4 MG/ML 1ML VIAL/SYRINGE (J2270) IV PRN (00:57)
[2019-01-12] MEDS: PIPERACILLIN/TAZOBACTAM SOD 3.375 GM in D5W MINI-BAG PLUS 50 ML IV SCH ×2 (03:18→09:07)
[2019-01-12 06:35] VITALS: BP 129/90
[2019-01-12 06:52] LABS: HEMATOCRIT 36.9 % (42.0-52.0); HEMOGLOBIN 12.4 g/dl (13.5-17.5); MEAN CORPUSCULAR HEMOGLOBIN 32.5 pg (27.0-33.0); MEAN CORPUSCULAR HGB CONC 33.6 g/dl (32.0-36.5); MEAN CORPUSCULAR VOLUME 96.6 fl (80.0-96.0); RED BLOOD COUNT 3.82 10^6/uL (4.30-6.10); WHITE BLOOD COUNT 10.9 10^3/uL (4.0-10.0)
[2019-01-12 07:01] LABS: INR 1.09; PROTHROMBIN TIME 13.8 SECONDS (11.8-14.0)
[2019-01-12 07:14] LABS: BLOOD UREA NITROGEN 7 MG/DL (7-18); CALCIUM LEVEL 8.8 MG/DL (8.5-10.1); CARBON DIOXIDE LEVEL 30 MEQ/L (21-32); CHLORIDE LEVEL 105 MEQ/L (98-107); GLOMERULAR FILTRATION RATE > 60.0 (>60); GLUCOSE, FASTING 125 MG/DL (70-100); POTASSIUM SERUM 3.3 MEQ/L (3.5-5.1); SODIUM LEVEL 140 MEQ/L (136-145)
[2019-01-12 07:16] LABS: PLATELET COUNT, AUTOMATED 71 10^3/uL (150-450)
[2019-01-12] MEDS ORDERED: POTASSIUM CHLORIDE 10 MEQ SR TABLET PO ONE (08:00)
[2019-01-12] MEDS: LACOSAMIDE 50 MG TAB (VIMPAT) PO SCH ×2 (09:07→20:15)
[2019-01-12] MEDS: SENOKOT S TAB PO SCH ×2 (09:07→20:15)
[2019-01-12] MEDS: busPIRone 5 MG TAB PO SCH ×3 (09:07→20:14)
[2019-01-12] MEDS: levETIRAcetam 250MG TABLET (KEPPRA) PO SCH ×2 (09:07→20:15)
[2019-01-12] MEDS: PERCOCET 5MG/325MG TAB PO PRN ×2 (09:10→20:16)
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
[2019-01-12 14:00] VITALS: BP 130/89
[2019-01-12] MEDS ORDERED: ceFAZolin 1GM INJ (J0690 PER 500MG) As Ordered ONE (14:02)
--- NOTE | 2019-01-12 15:22 | IPNPDOC ---
Subjective Date Seen The patient was seen on 01/12/19. Subjective Chief Complaint/HPI Ilya was seen and examined this morning while lying in bed. He was scheduled for surgery yesterday afternoon for his right femoral neck fracture. The surgery was postponed due to Ilya being hypoxic even while receiving oxygen via nasal cannula. He also had a previous chest x-ray early into his hospital stay that had showed some possible areas of concerns, but was a poor study. This created a situation where the orthopedic surgery, anesthesiology and hospitalist teams decided it was best to postpone Ilya surgery's until his pulmonary status improved. Ilya states that his overall pain has improved slightly from yesterday rating now an 8 out of 10. He is now off oxygen via nasal cannula. His right lower extremity continues to be numb from the patella on distally, and he remains especially apprehensive of any movements that may trigger motion of his right hip and lower extremity. He has a productive cough that brings up brown colored phlegm since last night. He states that he continues to use his spirometry device. He was made NPO again after midnight in preparation of surgery today. Surgery likely will occur after 4 PM today, seeing as he will be an add-on patient. Constitutional: Denies: Chills, Fever ENT: Denies: Head Aches Pulmonary: Reports: Cough (productive, brown-colored phlegm); Denies: Dyspnea, Pleuritic Chest Pain Cardiovascular: Reports: Palpitations (occasional and mild); Denies: Chest Pain Gastrointestinal: Denies: Nausea, Vomiting, Abdominal Pain Genitourinary: Denies: Dysuria, Hematuria Musculoskeletal: Reports: Leg Pain (right), Joint Pain (right); Denies: Neck Pain Neurological: Reports: Numbness (right lower extremity from patella on distally) Objective Physical Examination General Exam: Positive: Alert, Cooperative, Mild Distress (due to apprehension of surgery and severe right hip and lower extremity.) Neck Exam: Positive: Supple, +2 carotid pulse wo bruit Chest Exam: Positive: Diminished (mildly diminished due to overall pain) Heart Exam: Positive: Rate Normal, Regular Rhythm, Normal S1, Normal S2; Negative: Murmurs, Rubs Abdomen Exam: Positive: Normal bowel sounds, Soft (nondistended), Tenderness (Mild tenderness in bilateral lower quadrants) Extremity Exam: Positive: Normal pulses ( 2+ radial, posterior tibial), Tenderness (right hip and right lower extremity), Swelling (moderate swelling of right hip and thigh as compared to left), Other (Right leg externally rotated and shorter than the left) Skin Exam: Negative: Other skin issue (no erythema of right hip and thigh) Neuro Exam: Positive: Normal Speech; Negative: Strength at 5/5 X4 ext (Right lower extremity: unable to do muscle strength testing due to severe pain. Left lower extremity 5 out of 5 muscle strength testing. RUE and LUE 5 out of 5 muscle strength testing upper extremity bilaterally), Sensation Intact (diminished sensation to light touch of right lower leg as compared to left) Psych Exam: Positive: Anxiety ( Mild anxiety due to uncertainty surrounding what hip surgery will entail), Oriented x 3 Assessment /Plan Assessment Right Hip Fracture 2/2 Trauma/Fall -Hip/Pelvis Xray - Right Hip notable for acute intertrochanteric fracture of the femoral neck -Ortho consulted by the ER, surgery was on hold until INR is less than 1.5. -Last two INR values have been less than 1.5, clearing threshold for surgery. -Surgery on January 11 was postponed due to patient's hypoxia and uncertain status of prior chest x-ray -It was presumed that patient's Dilaudid was contributing to decreased respiratory drive and subsequent hypoxia. Dilaudid was discontinued, after which patient's respiratory status improved. He was NPO around midnight and his oxygen saturation percentage steadily improved and he was taken off supplemental oxygen this morning. -Repeat chest x-ray was done and did not show any acute concerning process that would prohibit moving forward with surgery today -Patient likely will have surgery today sometime after 4 PM since he will be an add-on patient case to the OR schedule Hx of Recurrent DVTs, PE, s/p IVC Filter -Coumadin is currently on hold due to surgery restriction, INR presurgery goal is less than 1.5 -Will follow-up with orthopedic surgery as to when patient can resume Coumadin treatment for targeted INR: 2-3 -s/p 1 dose of vitamin K in the ER -Continue to monitor Acute kidney injury (resolved) -Likely secondary to trauma -Total creatinine kinase: 313 -Continue with IV fluids 100 mL per hour History of gout -c/w allopurinol History of seizure disorder, traumatic brain injury -c/w Fara Flores Anxiety/depression -c/w BuSpar, duloxetine, Paxil Hypertension -c/w Norvasc DVT prophylaxis Therapeutic INR further DVT prophylactic therapy following surgical intervention as per orthopedic surgery -can always considers TEDs and sequential I saw and evaluated the patient. I agree with the findings and plan of care as documented in the above note Plan/VTE VTE Prophylaxis Ordered?: Yes VS, I&O, 24H, Fishbone Vital Signs/I&O Vital Signs Date Time Temp Pulse Resp B/P (MAP) Pulse Ox O2 Delivery O2 Flow Rate FiO2 01/12/19 14:00 99.1 105 20 130/89 (103) 92 01/12/19 00:57 2.0 01/10/19 01:15 Room Air I&O- Last 24 Hours up to 6 AM 01/12/19 06:00 Intake Total 1740 ml Output Total 2950 ml Balance -1210 ml Laboratory Data 24H LABS Laboratory Tests 2 01/12/19 05:55: Nucleated Red Blood Cells % (auto) 0.0, Immature Platelet Fraction 6.4, Prothrombin Time 13.8, Prothromb Time International Ratio 1.09, Anion Gap 5L, G lomerular Filtration Rate > 60.0, Blood Urea Nitrogen 7, Creatinine 0.70, Sodium Level 140, Potassium Level 3.3L, Chloride Level 105, Carbon Dioxide Level 30, Calcium Level 8.8 CBC/BMP Laboratory Tests 01/12/19 05:55 Red Blood Count 3.82 L, Mean Corpuscular Volume 96.6 H, Mean Corpuscular Hemoglobin 32.5, Mean Corpuscular Hemoglobin Concent 33.6, Red Cell Distribution Width 13.2, Calcium Level 8.8 VALERIE LIRA PGY-1 Jan 12, 2019 15:22 REGGIE ARMENTA MD Jan 12, 2019 16:35
[2019-01-12] MEDS: amLODIPine 10 MG TAB PO SCH (20:14)
[2019-01-12] MEDS: ALLOPURINOL 100 MG TAB PO SCH (20:15)
[2019-01-12] MEDS: PARoxetine 20 MG TAB PO SCH (20:15)
[2019-01-12] MEDS: OMEPRAZOLE 20 MG CAP PO SCH (20:15)
[2019-01-12] MEDS: DULoxetine 30 MG CAP (CYMBALTA) PO SCH (20:15)
[2019-01-12 20:50] VITALS: BP 137/94
[2019-01-13] MEDS: MOM 30ML SUSPENSION UDC PO PRN ×2 (01:21→20:14)
[2019-01-13] MEDS: PERCOCET 5MG/325MG TAB PO PRN ×3 (05:36→18:40)
[2019-01-13 06:16] LABS: INR 0.99; PROTHROMBIN TIME 12.8 SECONDS (11.8-14.0)
[2019-01-13 07:22] VITALS: BP 137/94
[2019-01-13] MEDS ORDERED: ceFAZolin 1GM INJ (J0690 PER 500MG) As Ordered ONE (07:32)
[2019-01-13] MEDS ORDERED: ceFAZolin 2 GM/D5W 50 ML IV BAG (J0690 PER 500MG) As Ordered ONE (07:32)
[2019-01-13] MEDS ORDERED: BUPIVACAINE/DEXTROSE 0.75% 2 ML AMP As Ordered ONE (07:35)
[2019-01-13] MEDS ORDERED: PROPOFOL 200 MG/20 ML VIAL As Ordered ONE (07:39)
[2019-01-13] MEDS ORDERED: MIDAZOLAM INJ 2 MG/2 ML VIAL (J2250) As Ordered ONE (07:39)
[2019-01-13] MEDS ORDERED: LIDOCAINE 2% INJ 100 MG/5 ML SDV (FOR ANES.) As Ordered ONE (07:39)
[2019-01-13] MEDS ORDERED: fentaNYL 100 MCG/2 ML INJECTION (J3010) As Ordered ONE (07:39)
[2019-01-13 07:47] LABS: HEMATOCRIT 38.4 % (42.0-52.0); HEMOGLOBIN 12.8 g/dl (13.5-17.5); MEAN CORPUSCULAR HEMOGLOBIN 30.8 pg (27.0-33.0); MEAN CORPUSCULAR HGB CONC 33.3 g/dl (32.0-36.5); MEAN CORPUSCULAR VOLUME 92.3 fl (80.0-96.0); PLATELET COUNT, AUTOMATED 190 10^3/uL (150-450); RED BLOOD COUNT 4.16 10^6/uL (4.30-6.10); WHITE BLOOD COUNT 9.5 10^3/uL (4.0-10.0)
[2019-01-13 08:18] LABS: BLOOD UREA NITROGEN 7 MG/DL (7-18); CALCIUM LEVEL 8.6 MG/DL (8.5-10.1); CARBON DIOXIDE LEVEL 27 MEQ/L (21-32); CHLORIDE LEVEL 105 MEQ/L (98-107); CREATININE FOR GFR 0.71 MG/DL (0.70-1.30); GLOMERULAR FILTRATION RATE > 60.0 (>60); GLUCOSE, FASTING 116 MG/DL (70-100); POTASSIUM SERUM 4.3 MEQ/L (3.5-5.1); SODIUM LEVEL 139 MEQ/L (136-145)
--- NOTE | 2019-01-13 08:38 | IPN ---
DATE: 01/13/2019 Patient seen and examined. He ate cake last night just as we were sending for him for the operating room, so his surgery had to be delayed of course. We are planning on proceeding with IM rodding of his right subtrochanteric/intertrochanteric femur fracture. He understands the nature of the alternatives. In addition, he is a fairly heavy smoker and I have spent a good deal of time talking to him about the fact that he will need to stop smoking in order for this fracture to have the best chance of healing and it will significantly reduce his odds of healing if he continues to smoke. In addition, I have explained that these type of fractures are notoriously difficult to get to heal even in nonsmokers due to the location of the fracture and the blood supply. He is aware of this. TAMMY
[2019-01-13] MEDS ORDERED: PHENYLephrine HCL 500 MCG/5 ML (100MCG/ML) SYRINGE (J2370) As Ordered ONE (09:12)
[2019-01-13] MEDS ORDERED: ePHEDrine SULFATE 25 MG/5 ML(5MG/ML) SYRINGE As Ordered ONE (09:20)
[2019-01-13] MEDS ORDERED: KETAMINE HCL 200 MG/20 ML VIAL As Ordered ONE (10:26)
[2019-01-13] MEDS ORDERED: FLEET ENEMA PR PRN (10:45)
[2019-01-13] MEDS ORDERED: MORPHINE 10 MG/ML 1ML VIAL (J2270) IV PRN (10:45)
[2019-01-13] MEDS ORDERED: MORPHINE 4 MG/ML 1ML VIAL/SYRINGE (J2270) IV PRN ×2 (10:45)
[2019-01-13] MEDS ORDERED: fentaNYL 100 MCG/2 ML INJECTION (J3010) IV PRN (10:45)
[2019-01-13] MEDS ORDERED: LR 1,000 ML IV SCH (10:45)
[2019-01-13] MEDS ORDERED: ONDANSETRON 4MG/2ML VIAL (J2405) IV PRN ×2 (10:45)
[2019-01-13] MEDS ORDERED: ACETAMINOPHEN TAB 650MG DOSE (2X325MG) PO PRN (10:45)
[2019-01-13] MEDS ORDERED: PERCOCET 5MG/325MG TAB PO PRN (10:45)
--- NOTE | 2019-01-13 10:46 | REP ---
Right hip: 14 views. Intraoperative procedure. Fluoroscopy time 1 minute 38 seconds. Findings: A sequence of 14 last image hold fluoroscopically obtained intraprocedural spot radiographs document open reduction internal fixation procedure. There are no laterality markers visible. Electronically Signed by Kody Carter MD 01/13/2019 12:05 P
[2019-01-13 11:20] VITALS: BP 137/94
[2019-01-13 12:00] VITALS: BP 139/89
--- NOTE | 2019-01-13 12:10 | REP ---
Right femur: Four views. History: Status post ama fixation right femur. Findings: AP, frog-leg and lateral views of the proximal and distal femur demonstrate an intramedullary ama and a femoral neck pin transfixing intertrochanteric fracture in good position. Associated skin kasandra and periarticular soft tissue swelling are seen. Electronically Signed by Kody Carter MD 01/13/2019 01:36 P
[2019-01-13 13:00] VITALS: BP 125/89
[2019-01-13] MEDS: busPIRone 5 MG TAB PO SCH ×3 (13:07→20:15)
[2019-01-13] MEDS: SENOKOT S TAB PO SCH ×2 (13:14→20:18)
[2019-01-13] MEDS: levETIRAcetam 250MG TABLET (KEPPRA) PO SCH ×2 (13:15→20:15)
[2019-01-13] MEDS: LACOSAMIDE 50 MG TAB (VIMPAT) PO SCH ×2 (13:15→20:18)
[2019-01-13] MEDS: LR 1,000 ML IV SCH ×2 (13:22→20:19)
[2019-01-13 14:00] VITALS: BP 123/89
--- NOTE | 2019-01-13 18:53 | IPNPDOC ---
Subjective Date Seen The patient was seen on 01/13/19. Subjective Chief Complaint/HPI Ilya was seen and examined this afternoon lying upright in his bed. He did not have surgery yesterday (01/12) as an add-on patient in the afternoon because he ate just before going to the OR. His surgery was then delayed until this morning. His surgery today involved the implantation of a ama into his right femur to stabilize his subtrochanteric/intertrochanteric femur fracture. His surgery was performed by Dr. Viktor Cortez. He states his current pain level is a little bit improved from the previous days, which were pre-surgery. He has resu med eating and drinking without any issues. He continues to use a condom catheter and has yet to have a bowel movement since admission. Constitutional: Reports: Other (mild diaphoresis); Denies: Chills, Fever ENT: Denies: Head Aches Pulmonary: Reports: Cough; Denies: Dyspnea Cardiovascular: Denies: Chest Pain, Palpitations Gastrointestinal: Reports: Constipation, Other Symptoms (abdominal fullness); Denies: Nausea, Vomiting, Diarrhea Genitourinary: Denies: Dysuria Musculoskeletal: Reports: Leg Pain (right), Joint Pain (Right hip) Neurological: Reports: Numbness (right lower extremity from the patella on distally) Objective Physical Examination General Exam: Positive: Alert, Cooperative, No Acute Distress Eye Exam: Positive: Other Eye Symptoms (bilateral gaze deviation, right eye) Neck Exam: Positive: Supple; Negative: JVD Chest Exam: Positive: Clear to auscultation Heart Exam: Positive: Rate Normal, Regular Rhythm, Normal S1, Normal S2; Negative: Murmurs, Rubs Telemetry: Positive: Tachycardia Abdomen Exam: Positive: Normal bowel sounds, Soft (nondistended), Tenderness (Mild tenderness in bilateral lower quadrants), Other (mildly distended) Extremity Exam: Positive: Normal pulses ( 2+ radial, posterior tibial), Tenderness (right hip and right lower extremity), Swelling (moderate swelling of right hip and thigh as compared to left), Other Skin Exam: Positive: Other skin issue (Three surgical incision wounds adhered via kasandra. All along the lateral aspect of the right thigh covered by gauze and Tegaderm. No active oozing or discharge at this time of inspection) Neuro Exam: Positive: Normal Speech; Negative: Strength at 5/5 X4 ext (Right lower extremity: unable to do muscle strength testing due to severe pain. Left lower extremity 5 out of 5 muscle strength testing. RUE and LUE 5 out of 5 muscle strength testing upper extremity bilaterally), Sensation Intact (diminished sensation to light touch of right lower leg as compared to left) Psych Exam: Positive: Memory Intact, Oriented x 3 Assessment /Plan Assessment Right Hip Fracture 2/2 Trauma/Fall -Hip/Pelvis Xray - Right Hip notable for acute intertrochanteric fracture of the femoral neck -Patient underwent this morning (01/13) performed by Dr. Viktor Cortez. -Patient has been able to ambulate with assistance of nursing staff to bedside commode post-surgery -Patient will be evaluated by physical therapy/occupational therapy, who will decide the proper rehabilitative location to place him Hx of Recurrent DVTs, PE, s/p IVC Filter -Orthopedic surgery prescribed patient Xarelto 10 mg PO daily to commence tomorrow (01/14) at 18:00 for anti-coagulation -Patient's last measured INR was 0.99 -s/p 1 dose of vitamin K in the ED, 01/10 -Continue to monitor patient's INR Acute kidney injury (resolved) -Likely secondary to trauma -Total creatinine kinase: 313 -Continue with IV fluids 100 mL per hour History of gout -c/w allopurinol History of seizure disorder, traumatic brain injury -c/w Vimpat, Keppra Anxiety/depression -c/w BuSpar, duloxetine, Paxil Hypertension -c/w Norvasc DVT prophylaxis -DVT prophylactic therapy following surgery per orthopedic surgery as stated above -Currently wearing HARVINDER compression stockings Plan/VTE VTE Prophylaxis Ordered?: Yes VS, I&O, 24H, Stephany Vital Signs/I&O Vital Signs Date Time Temp Pulse Resp B/P (MAP) Pulse Ox O2 Delivery O2 Flow Rate FiO2 01/13/19 15:10 20 01/13/19 14:00 97.5 115 123/89 (100) 97 2.0 01/10/19 01:15 Room Air I&O- Last 24 Hours up to 6 AM 01/13/19 06:00 Intake Total 520 ml Output Total 1650 ml Balance -1130 ml Laboratory Data 24H LABS Laboratory Tests 2 01/13/19 05:53: Prothrombin Time 12.8, Prothromb Time International Ratio 0.99 01/13/19 07:34: Nucleated Red Blood Cells % (auto) 0.0, Anion Gap 7L, Glomerular Filtration Rate > 60.0, Blood Urea Nitrogen 7, Creatinine 0.71, Sodium Level 139, Potassium Level 4.3#, Chloride Level 105, Carbon Dioxide Level 27, Calcium Level 8.6 CBC/BMP Laboratory Tests 01/13/19 07:34 Red Blood Count 4.16 L, Mean Corpuscular Volume 92.3, Mean Corpuscular Hemoglobin 30.8, Mean Corpuscular Hemoglobin Concent 33.3, Red Cell Distribution Width 13.4, Calcium Level 8.6 VALERIE LIRA PGY-1 Jan 13, 2019 18:40
[2019-01-13] MEDS: DULoxetine 30 MG CAP (CYMBALTA) PO SCH (20:15)
[2019-01-13] MEDS: ALLOPURINOL 100 MG TAB PO SCH (20:18)
[2019-01-13] MEDS: OMEPRAZOLE 20 MG CAP PO SCH (20:18)
[2019-01-13] MEDS: amLODIPine 10 MG TAB PO SCH (20:18)
[2019-01-13] MEDS: PARoxetine 20 MG TAB PO SCH (20:18)
[2019-01-13 22:00] VITALS: BP 136/91
[2019-01-14] MEDS: PERCOCET 5MG/325MG TAB PO PRN ×5 (00:23→23:52)
[2019-01-14 02:00] VITALS: BP 145/97
[2019-01-14 06:00] VITALS: BP 144/97
[2019-01-14 07:48] LABS: HEMATOCRIT 38.1 % (42.0-52.0); HEMOGLOBIN 12.8 g/dl (13.5-17.5); MEAN CORPUSCULAR HEMOGLOBIN 31.8 pg (27.0-33.0); MEAN CORPUSCULAR HGB CONC 33.6 g/dl (32.0-36.5); MEAN CORPUSCULAR VOLUME 94.5 fl (80.0-96.0); PLATELET COUNT, AUTOMATED 222 10^3/uL (150-450); RED BLOOD COUNT 4.03 10^6/uL (4.30-6.10); WHITE BLOOD COUNT 9.3 10^3/uL (4.0-10.0)
[2019-01-14 08:00] LABS: INR 1.02; PROTHROMBIN TIME 13.1 SECONDS (11.8-14.0)
[2019-01-14 08:26] LABS: BLOOD UREA NITROGEN 10 MG/DL (7-18); CALCIUM LEVEL 8.8 MG/DL (8.5-10.1); CARBON DIOXIDE LEVEL 30 MEQ/L (21-32); CHLORIDE LEVEL 100 MEQ/L (98-107); CREATININE FOR GFR 0.77 MG/DL (0.70-1.30); GLOMERULAR FILTRATION RATE > 60.0 (>60); GLUCOSE, FASTING 112 MG/DL (70-100); POTASSIUM SERUM 3.3 MEQ/L (3.5-5.1); SODIUM LEVEL 136 MEQ/L (136-145)
[2019-01-14 10:00] VITALS: BP 145/99
[2019-01-14] MEDS: levETIRAcetam 250MG TABLET (KEPPRA) PO SCH ×2 (10:08→20:20)
[2019-01-14] MEDS: LACOSAMIDE 50 MG TAB (VIMPAT) PO SCH ×2 (10:08→20:21)
[2019-01-14] MEDS: busPIRone 5 MG TAB PO SCH ×3 (10:08→20:21)
[2019-01-14] MEDS: SENOKOT S TAB PO SCH ×2 (10:08→20:21)
[2019-01-14] MEDS: MIRALAX *UNIT DOSE* 17GM PACKET PO SCH (10:09)
[2019-01-14 14:00] VITALS: BP 138/97
--- NOTE | 2019-01-14 14:05 | RO ---
DATE OF PROCEDURE: 01/13/2019 PREOPERATIVE DIAGNOSIS: Right intertrochanteric/subtrochanteric hip fracture. POSTOPERATIVE DIAGNOSIS: Subtrochanteric (sub troch) femur fracture. PROCEDURE: ORIF Right Hip with IM ama Synthes TFNA long SURGEON: Dr. Viktor Cortez DATA ENTRY OPERATOR: ANESTHESIA: Spinal. ESTIMATED BLOOD LOSS: Approximately 150 mL. COMPLICATIONS: None. INDICATIONS: This is a 38-year-old gentleman with several medical issues who had a fall a few days ago and sustained a hip fracture. He has had some medical issues that have prevented him coming to the operating room and actually was scheduled for surgery last evening, but he had a piece of cake just prior to being transferred to the operating room because he was hungry. He wished to go ahead with surgical treatment. He understood the nature of this, the risks of bleeding, infection, damage to nerves, vessels, persistent pain, malunion, nonunion, loss of reduction, blood clots, medical problems, , among others. He understood smoking is going to significantly impact the healing unless he were able to quit. DESCRIPTION OF PROCEDURE: The patient was taken to the operating room, placed in the supine position on the fracture table. All areas were padded appropriately. His right hip was then examined with a C-arm, and I placed some traction on the leg, some mild rotation internally and was able to reduce the fracture into very reasonable position. I anticipated it being a little more challenging to reduce on the C-arm, but it did line up pretty well. The subtrochanteric fractures are notoriously hard to reduce on the fracture table. AP and lateral views were obtained. I then prepped and draped the hip in the usual sterile fashion. Time-out was again performed and then I created a longitudinal incision over the lateral aspect of the hip proximal to the trochanter, sharply dissected down through the fascia and then identified the tip of the trochanter and the guide was placed on the tip of the trochanter. I advanced in a guidewire down through the femur into the canal. I then used the drill to open up the proximal aspect of the femur in the usual fashion, then exchanged the guidewire and advanced it down to the knee. Excellent position was noted. It was confirmed in AP and lateral planes that the guidewire was in the femur. At this point, I reamed and sequentially reamed up to 12.5 anticipating that with a young person that the isthmus may have to be enlarged in order to pass an 11 nail. I elected to use a long TFN nail because this did appear to be a subtrochanteric fracture with some reverse obliquity once I had it reduced. I had considered an intermediate nail, but I felt the long nail might be more stable and I could allow for dynamization of the screws and compression across the fracture site. I then selected a nail length of 420 mm and the 130 angle, which I had measured on the C-arm preoperatively and advanced this nail down. I was able to push it down by hand. It was an appropriate distance above the knee and was pleased with the position of the holes at the proximal femur. I then placed the guide along the lateral aspect of the femur after making an incision and secured this down to the femur. I drilled the guide pin in, and it actually ended up in the center of the head on both planes. I then measured this and drilled, elected to go with a screw in this situation because I anticipated his bone to be more dense than an older person and was concerned about impacting in a blade. So, the drill hole was created. I then used the tap and measured and ended up initially placing in a slightly longer screw than was required; it was protruding out a little bit laterally, so I advanced the screw back out and put a new one in 10 mm shorter and lined up the side of the screw with the lateral aspect of the femur, such that it would be flush. The tip of the screw was in an excellent position within a centimeter of the apex of the femoral head on both views. I then tightened down the screw in the proximal aspect of the nail to intercept the hip screw and decided not to dynamize it because I wanted this proximal construct to be one piece and did not want the proximal construct to risk sliding off the femoral shaft if it were dynamized. Excellent position was noted of the fracture and the hardware. I then advanced down to the knee, images were taken down the femur. An AP was used to locate the holes in the distal aspect of the nail, and I elected to go with the dynamic hole, primarily to allow for some compression across the fracture site as I am concerned about healing in this patient as a smoker. So using lateral, I was able to create perfect circles of the holes and then starting in the distal aspect of the dynamic hole, made a small incision, drilled across this under C-arm imaging and then advanced in an appropriate screw using the C-arm to confirm that this was through the nail. Excellent length was noted on the AP. Final images were obtained. I did also advance in a 5 mm end cap in the proximal aspect of the femur in the event that this nail needs to come out, this would make this easier. I put it over a guidewire and advanced in the end cap and used C-arm imaging to confirm that it was well seated. Final images were saved. Overall, very pleased with the construct and the stability of this fracture and the reduction of the fracture. I irrigated, closed the deep layer with #1 Vicryl suture and the subcu with #2-0 Vicryl. Sterile dressing was applied. I had removed the traction from the end of the femur prior to placement of the distal locking screw. The plan will be partial weightbearing initially, will probably be able to advance him to weightbearing as tolerated fairly quickly with hopes of compressing this fracture, but I do want to initially start him on partial weightbearing and I am a little bit concerned about his compliance, so I think holding him back with partial weightbearing at least for the first couple weeks would be a reasonable plan. TAMMY
[2019-01-14] MEDS: RIVAROXABAN 10 MG TAB (XARELTO) PO SCH (16:40)
[2019-01-14 18:20] VITALS: BP 139/99
[2019-01-14] MEDS: MOM 30ML SUSPENSION UDC PO PRN (20:20)
[2019-01-14] MEDS: OMEPRAZOLE 20 MG CAP PO SCH (20:21)
[2019-01-14] MEDS: amLODIPine 10 MG TAB PO SCH (20:21)
[2019-01-14] MEDS: DULoxetine 30 MG CAP (CYMBALTA) PO SCH (20:21)
[2019-01-14] MEDS: ALLOPURINOL 100 MG TAB PO SCH (20:21)
[2019-01-14] MEDS: PARoxetine 20 MG TAB PO SCH (20:21)
[2019-01-14 22:00] VITALS: BP 143/88
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
--- NOTE | 2019-01-15 05:37 | REPVR ---
EXAM: XR Abdomen, 1 View EXAM DATE/TIME: 01/15/2019 4:20 AM CLINICAL HISTORY: 38 years old, male; Bloating; Additional info: Abd pain TECHNIQUE: Imaging protocol: Frontal supine view of the abdomen/pelvis. COMPARISON: No relevant prior studies available. FINDINGS: Gastrointestinal tract: Marked gaseous distention of bowel in the right and central and upper abdomen appears predominantly colonic within the transverse colon and colon within the right abdomen likely right colon approaching 16 CM in diameter. Less prominently dilated bowel gas in the left abdomen and pelvis with intraluminal gas extending to the level of the rectum. No significant colonic fecal debris evident. Air distention of the stomach is mild. Limitation for detailed bowel gas pattern assessment. Vasculature: Vascular filter overlies the central abdomen right of midline at the level of L2 and L3. Bones/joints: Hardware positioning of the right femur. IMPRESSION: Marked gaseous distention predominantly involving colon likely transverse and right colon in the right abdomen. Differential predominantly includes colonic ileus. Doubtful for distal colonic obstruction. Consider further followup assessment with decubitus or upright images if further diagnostic consideration is desired. Electronically signed by: Jen Hutchison On 01/15/2019 05:37:03 AM
[2019-01-15 06:00] VITALS: BP 141/97
[2019-01-15] MEDS: PERCOCET 5MG/325MG TAB PO PRN ×2 (06:24→15:04)
[2019-01-15] MEDS ORDERED: PERC5TAB12 PO (08:19)
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
[2019-01-15] MEDS ORDERED: MAGNESIUM CITRATE 300 ML BTL PO ONE (09:00)
[2019-01-15] MEDS: PINK BISMUTH SUSP 524MG/30ML ORAL SYRINGE PO SCH ×2 (09:00→21:00)
[2019-01-15] MEDS ORDERED: POTASSIUM CHLORIDE 10 MEQ SR TABLET PO ONE (09:00)
[2019-01-15] MEDS: MIRALAX *UNIT DOSE* 17GM PACKET PO SCH (10:03)
[2019-01-15] MEDS: SENOKOT S TAB PO SCH ×2 (10:04→21:30)
[2019-01-15] MEDS: busPIRone 5 MG TAB PO SCH ×3 (10:04→21:23)
[2019-01-15] MEDS: LACOSAMIDE 50 MG TAB (VIMPAT) PO SCH ×2 (10:05→21:23)
[2019-01-15] MEDS: levETIRAcetam 250MG TABLET (KEPPRA) PO SCH ×2 (10:05→21:23)
[2019-01-15] MEDS: WARFARIN SOD 3 MG TAB PO SCH (16:40)
[2019-01-15] MEDS ORDERED: WARFARIN SOD 5 MG TAB PO ONE (17:00)
[2019-01-15] MEDS: RIVAROXABAN 10 MG TAB (XARELTO) PO SCH (18:28)
[2019-01-15] MEDS: PARoxetine 20 MG TAB PO SCH (21:24)
[2019-01-15] MEDS: amLODIPine 10 MG TAB PO SCH (21:24)
[2019-01-15] MEDS: OMEPRAZOLE 20 MG CAP PO SCH (21:24)
[2019-01-15] MEDS: DULoxetine 30 MG CAP (CYMBALTA) PO SCH (21:25)
[2019-01-15] MEDS: ALLOPURINOL 100 MG TAB PO SCH (21:30)
[2019-01-15 22:00] VITALS: BP 137/89
[2019-01-16] MEDS: PERCOCET 5MG/325MG TAB PO PRN ×5 (00:56→20:34)
[2019-01-16 06:00] VITALS: BP 144/99
[2019-01-16 06:11] LABS: HEMATOCRIT 29.6 % (42.0-52.0); MEAN CORPUSCULAR HEMOGLOBIN 31.2 pg (27.0-33.0); MEAN CORPUSCULAR HGB CONC 34.1 g/dl (32.0-36.5); MEAN CORPUSCULAR VOLUME 91.4 fl (80.0-96.0); PLATELET COUNT, AUTOMATED 289 10^3/uL (150-450); RED BLOOD COUNT 3.24 10^6/uL (4.30-6.10); WHITE BLOOD COUNT 8.9 10^3/uL (4.0-10.0)
[2019-01-16 06:24] LABS: INR 1.12; PROTHROMBIN TIME 14.1 SECONDS (11.8-14.0)
[2019-01-16 06:28] LABS: HEMOGLOBIN 10.1 g/dl (13.5-17.5)
[2019-01-16 06:38] LABS: BLOOD UREA NITROGEN 8 MG/DL (7-18); CALCIUM LEVEL 8.9 MG/DL (8.5-10.1); CARBON DIOXIDE LEVEL 30 MEQ/L (21-32); CHLORIDE LEVEL 100 MEQ/L (98-107); CREATININE FOR GFR 0.75 MG/DL (0.70-1.30); GLOMERULAR FILTRATION RATE > 60.0 (>60); GLUCOSE, FASTING 106 MG/DL (70-100); POTASSIUM SERUM 3.5 MEQ/L (3.5-5.1); SODIUM LEVEL 136 MEQ/L (136-145)
[2019-01-16] MEDS: PINK BISMUTH SUSP 524MG/30ML ORAL SYRINGE PO SCH ×2 (09:00→20:36)
[2019-01-16] MEDS: SENOKOT S TAB PO SCH ×2 (09:55→20:35)
[2019-01-16] MEDS: busPIRone 5 MG TAB PO SCH ×3 (09:55→20:33)
[2019-01-16] MEDS: LACOSAMIDE 50 MG TAB (VIMPAT) PO SCH ×2 (09:55→20:35)
[2019-01-16] MEDS: levETIRAcetam 250MG TABLET (KEPPRA) PO SCH ×2 (09:56→20:35)
[2019-01-16] MEDS: MIRALAX *UNIT DOSE* 17GM PACKET PO SCH (09:56)
[2019-01-16 14:00] VITALS: BP 135/87
[2019-01-16] MEDS: SIMETHICONE 80 MG CHEW TAB PO SCH ×2 (16:37→20:32)
[2019-01-16] MEDS: WARFARIN SOD 3 MG TAB PO SCH (16:37)
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
[2019-01-16] MEDS: PARoxetine 20 MG TAB PO SCH (20:32)
[2019-01-16] MEDS: OMEPRAZOLE 20 MG CAP PO SCH (20:32)
[2019-01-16] MEDS: ALLOPURINOL 100 MG TAB PO SCH (20:35)
[2019-01-16] MEDS: DULoxetine 30 MG CAP (CYMBALTA) PO SCH (20:35)
[2019-01-16] MEDS: amLODIPine 10 MG TAB PO SCH (20:37)
[2019-01-16 22:00] VITALS: BP 139/93
[2019-01-17] MEDS: PERCOCET 5MG/325MG TAB PO PRN ×4 (01:13→20:21)
[2019-01-17 06:00] VITALS: BP 150/99
[2019-01-17] MEDS: LACOSAMIDE 50 MG TAB (VIMPAT) PO SCH ×2 (08:30→20:16)
[2019-01-17] MEDS: busPIRone 5 MG TAB PO SCH ×3 (08:31→20:19)
[2019-01-17] MEDS: levETIRAcetam 250MG TABLET (KEPPRA) PO SCH ×2 (08:31→20:18)
[2019-01-17] MEDS: SIMETHICONE 80 MG CHEW TAB PO SCH ×3 (08:31→20:18)
[2019-01-17] MEDS: MIRALAX *UNIT DOSE* 17GM PACKET PO SCH (08:31)
[2019-01-17] MEDS: PINK BISMUTH SUSP 524MG/30ML ORAL SYRINGE PO SCH ×2 (08:31→20:19)
[2019-01-17] MEDS: SENOKOT S TAB PO SCH ×2 (08:32→20:20)
[2019-01-17 14:00] VITALS: BP 144/92
--- NOTE | 2019-01-17 15:47 | IPNPDOC ---
Text Note Date of Service The patient was seen on 01/17/19. NOTE HOSPITALIST PROGRESS NOTE Subjective: Pt examined at bedside and feels well overall. No new complaints. No f/c/n/v/abd pain/cp/sob. Continues to work with PT & awaiting acute vs subacute rehab. Eating & drinking well. Pain under control. Vitals stable. Objective: PHYSICAL EXAMINATION: VITAL SIGNS: Please see below. General exam: Alert and cooperative, A&O 3, NAD Eye exam: PERRLA, EOMI ENT: NCAT, moist mucous membranae, tongue midline, no pharyngeal edema Cardiac: RRR, normal S1 & S2, no murmurs Respiratory: CTAB, good air exchange, no wheezing, rhonchi, or rales Abdomen: less distended than prior days, NT, normoactive bowel sounds MSK: Right leg without any signs of infection. No fluid drainage or skin changes Skin: No visible rash or lesions Neuro: no focal deficits LABORATORY DATA: Please see below. ASSESSMENT/PLAN: 1. S/P right hip ORIF 01/13/19. POD 4. Pain, AC, diet, activity as per ortho 2. Hx of Recurrent DVTs, PE: s/p IVC Filter. Resumed on Coumadin as per Ortho. 3. History of gout: c/w allopurinol 4. History of seizure disorder, traumatic brain injury: c/w Fara Flores 5. Anxiety/depression: stable. C/w BuSpar, duloxetine, Paxil 6. Hypertension: controlled. c/w Norvasc 7. Hypokalemia: resolved with supplementation DVT prophylaxis: as per ortho-currently on Coumadin DISPOSITION: pt is doing well from medical standpoint. Encourage ambulation to assist with ileus. Awaiting PFS to secure acute vs subacute rehab. VS,Fishbone, I+O VS, Fishbone, I+O Vital Signs Date Time Temp Pulse Resp B/P (MAP) Pulse Ox O2 Delivery O2 Flow Rate FiO2 01/17/19 15:21 18 01/17/19 06:00 97.8 94 150/99 (116) 96 01/14/19 14:00 2.0 I&O- Last 24 Hours up to 6 AM 01/17/19 06:00 Intake Total 3500 ml Output Total 1800 ml Balance 1700 ml GME ATTESTATION GME ATTESTATION My faculty preceptor for this patient encounter was physically present during the encounter and was fully available. All aspects of the patient interview, examination, medical decision making process, and medical care plan development were reviewed and approved by the faculty preceptor. The faculty preceptor is aware and concurs with the plan as stated in the body of this note and will attest to such by his/her cosignature. ATTENDING NOTE Jewel seen and examined the patient and discussed the management with the resident. I reviewed the resident's note and agree with the documented findings and plan of care with following addendum/ amendments. Patient's abdominal distention is slightly better seems like the post operative ileus is slightly better' Patient has been refused by Acute rehab. PFS is now looking in options for subacute rehab. SUDEEP ALLEN DO Jan 17, 2019 15:47 CHAY CLEVELAND MD Jan 17, 2019 21:58
[2019-01-17] MEDS: WARFARIN SOD 3 MG TAB PO SCH (17:49)
[2019-01-17] MEDS: OMEPRAZOLE 20 MG CAP PO SCH (20:18)
[2019-01-17] MEDS: ALLOPURINOL 100 MG TAB PO SCH (20:18)
[2019-01-17] MEDS: PARoxetine 20 MG TAB PO SCH (20:18)
[2019-01-17 20:19] VITALS: BP 142/77
[2019-01-17] MEDS: amLODIPine 10 MG TAB PO SCH (20:19)
[2019-01-17] MEDS: DULoxetine 30 MG CAP (CYMBALTA) PO SCH (20:19)
[2019-01-17 22:00] VITALS: BP 142/77
[2019-01-18] MEDS: PERCOCET 5MG/325MG TAB PO PRN ×2 (01:31→08:49)
[2019-01-18 06:00] VITALS: BP 141/73
[2019-01-18] MEDS: SIMETHICONE 80 MG CHEW TAB PO SCH (08:48)
[2019-01-18] MEDS: LACOSAMIDE 50 MG TAB (VIMPAT) PO SCH (08:48)
[2019-01-18] MEDS: busPIRone 5 MG TAB PO SCH (08:48)
[2019-01-18] MEDS: levETIRAcetam 250MG TABLET (KEPPRA) PO SCH (08:49)
[2019-01-18] MEDS: MIRALAX *UNIT DOSE* 17GM PACKET PO SCH (08:51)
[2019-01-18] MEDS: SENOKOT S TAB PO SCH (08:51)
[2019-01-18] MEDS: PINK BISMUTH SUSP 524MG/30ML ORAL SYRINGE PO SCH (08:51)
[2019-01-18 09:02] LABS: HEMATOCRIT 36.7 % (42.0-52.0); HEMOGLOBIN 12.1 g/dl (13.5-17.5); MEAN CORPUSCULAR HEMOGLOBIN 32.2 pg (27.0-33.0); MEAN CORPUSCULAR VOLUME 97.6 fl (80.0-96.0); PLATELET COUNT, AUTOMATED 398 10^3/uL (150-450); RED BLOOD COUNT 3.76 10^6/uL (4.30-6.10); WHITE BLOOD COUNT 8.1 10^3/uL (4.0-10.0)
[2019-01-18 09:08] LABS: INR 1.11
[2019-01-18 09:28] LABS: BLOOD UREA NITROGEN 9 MG/DL (7-18); CALCIUM LEVEL 9.5 MG/DL (8.5-10.1); CARBON DIOXIDE LEVEL 31 MEQ/L (21-32); CHLORIDE LEVEL 101 MEQ/L (98-107); CREATININE FOR GFR 0.86 MG/DL (0.70-1.30); GLOMERULAR FILTRATION RATE > 60.0 (>60); GLUCOSE, FASTING 101 MG/DL (70-100); POTASSIUM SERUM 3.6 MEQ/L (3.5-5.1); SODIUM LEVEL 138 MEQ/L (136-145)
[2019-01-18] MEDS ORDERED: COUM7.5T PO (10:08)
[2019-01-18] MEDS ORDERED: WARF-22 PO (10:10)
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
== END 2019-01-18 12:50 | DRG 481 ==
LOC: M ED 21:59 → M ED INP 01-10 00:23 → M MS4PR 01-10 01:51 → M MS5PR 01-10 15:20
PROVIDERS: ADMIT Internal Medicine; ATTEND Internal Medicine Nephrology
PROC: 0QS606Z Reposition Right Upper Femur with Intramedullary Internal Fixation Device, Open Approach (ICD-10-PCS; principal; 2019-01-13 08:00)
DX: S72.21XA Displaced subtrochanteric fracture of right femur, initial encounter for closed fracture (principal); N17.9 Acute kidney failure, unspecified; Y04.0XXA Assault by unarmed brawl or fight, initial encounter; Y92.838 Other recreation area as the place of occurrence of the external cause; G40.909 Epilepsy, unspecified, not intractable, without status epilepticus; M10.9 Gout, unspecified; F41.9 Anxiety disorder, unspecified; F32.9 Major depressive disorder, single episode, unspecified; R09.02 Hypoxemia; F17.200 Nicotine dependence, unspecified, uncomplicated; E87.6 Hypokalemia; I10 Essential (primary) hypertension; Z87.820 Personal history of traumatic brain injury; Z79.899 Other long term (current) drug therapy; Z86.718 Personal history of other venous thrombosis and embolism; Z95.828 Presence of other vascular implants and grafts; Z86.711 Personal history of pulmonary embolism; Z88.8 Allergy status to other drugs, medicaments and biological substances; Z79.01 Long term (current) use of anticoagulants

== ENCOUNTER → 2019-01-19 | Outpatient (REF) ==
[~2019-01-19] MED LIST changes: +ALLO100T PO; +BUSP15TA90 PO; +DULO30CA9 PO; +PERC5TAB12 PO; +WARF-22 PO; +WARF-60 PO
[2019-01-19 14:54] LABS: INR 1.3; PROTHROMBIN TIME 15.9 SECONDS (11.8-14.0)
== END ==
PROVIDERS: ATTEND Internal Medicine
DX: I48.91 Unspecified atrial fibrillation (principal); D64.9 Anemia, unspecified

== ENCOUNTER → 2019-01-21 | Outpatient (REF) | payer MEDICARE, MEDICAID ==
[~2019-01-21] MED LIST changes: +APAP325T4 PO; +ELIQ5TAB PO; +LISI10TA15 PO; -LISI10TA2 PO; +OMEP1CAP73 PO; -OMEP20CA4 PO; +WARF-20 PO; +WARF-23 PO
[2019-01-21 09:53] LABS: INR 1.78; PROTHROMBIN TIME 20.5 SECONDS (11.8-14.0)
== END ==
PROVIDERS: ATTEND Internal Medicine
DX: Z79.01 Long term (current) use of anticoagulants (principal)

== ENCOUNTER → 2019-01-23 | Outpatient (REF) | payer MEDICAID, MEDICARE ==
[~2019-01-23] MED LIST changes: -APAP325T4 PO; -ELIQ5TAB PO; -LISI10TA15 PO; +LISI10TA2 PO; -OMEP1CAP73 PO; +OMEP20CA4 PO; -WARF-20 PO; -WARF-23 PO
[2019-01-23 09:30] LABS: HEMATOCRIT 35.5 % (42.0-52.0); HEMOGLOBIN 11.4 g/dl (13.5-17.5); MEAN CORPUSCULAR HEMOGLOBIN 31.5 pg (27.0-33.0); MEAN CORPUSCULAR HGB CONC 32.1 g/dl (32.0-36.5); MEAN CORPUSCULAR VOLUME 98.1 fl (80.0-96.0); PLATELET COUNT, AUTOMATED 471 10^3/uL (150-450); RED BLOOD COUNT 3.62 10^6/uL (4.30-6.10); WHITE BLOOD COUNT 7.8 10^3/uL (4.0-10.0)
[2019-01-23 09:43] LABS: BLOOD UREA NITROGEN 11 MG/DL (7-18); CALCIUM LEVEL 9.5 MG/DL (8.5-10.1); CARBON DIOXIDE LEVEL 28 MEQ/L (21-32); CHLORIDE LEVEL 107 MEQ/L (98-107); CREATININE FOR GFR 0.82 MG/DL (0.70-1.30); GLOMERULAR FILTRATION RATE > 60.0 (>60); GLUCOSE, FASTING 84 MG/DL (70-100); POTASSIUM SERUM 4.6 MEQ/L (3.5-5.1); SODIUM LEVEL 143 MEQ/L (136-145)
== END ==
PROVIDERS: ATTEND Internal Medicine
DX: I10 Essential (primary) hypertension (principal)

== ENCOUNTER → 2019-01-24 | Outpatient (REF) ==
[2019-01-24 09:31] LABS: INR 2.44; PROTHROMBIN TIME 26.3 SECONDS (11.8-14.0)
== END ==
PROVIDERS: ATTEND Internal Medicine
DX: I69.90 Unspecified sequelae of unspecified cerebrovascular disease (principal)

== ENCOUNTER → 2019-01-26 | Outpatient (REF) ==
[2019-01-26 11:40] LABS: INR 2.47; PROTHROMBIN TIME 26.6 SECONDS (11.8-14.0)
== END ==
PROVIDERS: ATTEND Internal Medicine
DX: Z79.01 Long term (current) use of anticoagulants (principal)

== ENCOUNTER → 2019-01-31 | Outpatient (REF) | payer MEDICARE, MEDICAID ==
[2019-01-31 11:41] LABS: INR 2.98; PROTHROMBIN TIME 30.9 SECONDS (11.8-14.0)
== END ==
PROVIDERS: ATTEND Internal Medicine
DX: Z79.01 Long term (current) use of anticoagulants (principal)

== ENCOUNTER → 2019-02-06 | Outpatient (REF) | payer MEDICARE, MEDICAID ==
[2019-02-06 17:21] LABS: INR 2.46; PROTHROMBIN TIME 26.5 SECONDS (11.8-14.0)
== END ==
LOC: M LAB REF 16:08
PROVIDERS: ATTEND Nurse Practitioner Family
DX: I82.499 Acute embolism and thrombosis of other specified deep vein of unspecified lower extremity (principal)

== ENCOUNTER → 2019-02-09 | Outpatient (CLI) | payer MEDICARE, MEDICAID ==
[~2019-02-09] MED LIST changes: +APAP325T4 PO; +ELIQ5TAB PO; +LISI10TA15 PO; -LISI10TA2 PO; +OMEP1CAP73 PO; -OMEP20CA4 PO; +WARF-20 PO; +WARF-23 PO
--- NOTE | 2019-02-09 13:43 | REP ---
RIGHT LOWER EXTREMITY DUPLEX DOPPLER VENOUS ULTRASOUND: Real-time sonographic compression and duplex Doppler interrogation of right lower extremity deep venous system is performed. There is nonocclusive thrombus throughout the right common femoral, superficial femoral and popliteal veins. None of the veins are completely occluded. IMPRESSION: Nonocclusive thrombus in the right common femoral, superficial femoral, and popliteal veins. Electronically Signed by Donis Betancourt MD 02/12/2019 11:16 A
[2019-02-09 15:51] LABS: INR 2.74; PROTHROMBIN TIME 28.9 SECONDS (11.8-14.0)
== END ==
LOC: M RAD 12:26
PROVIDERS: ATTEND Physician Assistant Medical
DX: S72.141D Displaced intertrochanteric fracture of right femur, subsequent encounter for closed fracture with routine healing (principal); W18.30XA Fall on same level, unspecified, initial encounter; Y92.009 Unspecified place in unspecified non-institutional (private) residence as the place of occurrence of the external cause; Z79.01 Long term (current) use of anticoagulants

== ENCOUNTER 2019-02-15 11:14 | Observation (INO) | payer MEDICARE, MEDICAID ==
[~2019-02-15] VITALS: Ht 185.4 cm; Wt 93.0 kg
[~2019-02-15 11:14] MED LIST changes: -APAP325T4 PO; -ELIQ5TAB PO; -OMEP1CAP73 PO; +OMEP20CA4 PO; -WARF-20 PO; -WARF-23 PO
--- NOTE | 2019-02-15 14:48 | REP ---
Right upper extremity duplex venous ultrasound: History: Right arm swelling and stiffness. Pain. Question venous thrombosis. Findings: The right internal jugular, axillary, brachial, basilic, and cephalic veins are anechoic and compressible in the left upper extremity. Color flow imaging is homogeneous. Spectral Doppler interrogation is unremarkable. There is no evidence of right upper extremity venous thrombosis. Impression: Negative right upper extremity duplex venous ultrasound. No evidence of venous thrombosis. Electronically Signed by Kody Carter MD 02/15/2019 02:40 P
--- NOTE | 2019-02-15 14:50 | REP ---
Bilateral lower extremity duplex venous ultrasound: History: Bilateral leg swelling. Findings: In the right lower extremity there is extensive nonocclusive deep vein thrombosis with multi focal involvement of the popliteal, femoral vein, and common femoral vein segments. On the left, there is occlusive venous thrombosis in the mid femoral vein and nonocclusive venous thrombosis in the popliteal and common femoral vein segments. Impression: Positive study for deep vein thrombosis bilaterally as above. Electronically Signed by Kody Carter MD 02/15/2019 02:42 P
[2019-02-15 15:29] LABS: BASO # 0.1 10^3/uL (0.0-0.2); BASO % 0.8 % (0.0-1.0); EOS # 0.3 10^3/uL (0.0-0.50); EOS % 3.3 % (0.0-3.0); HEMATOCRIT 43.1 % (42.0-52.0); HEMOGLOBIN 14.2 g/dl (13.5-17.5); LYMPH # 1.6 10^3/uL (1.5-4.5); LYMPH % 21.1 % (24.0-44.0); MEAN CORPUSCULAR HEMOGLOBIN 31.8 pg (27.0-33.0); MEAN CORPUSCULAR HGB CONC 32.9 g/dl (32.0-36.5); MEAN CORPUSCULAR VOLUME 96.6 fl (80.0-96.0); MONO # 0.6 10^3/uL (0.0-0.8); MONO % 8.2 % (0.0-5.0); NEUTROPHILS # 5.2 10^3/uL (1.8-7.7); NEUTROPHILS % 66.2 % (36.0-66.0); PLATELET COUNT, AUTOMATED 249 10^3/uL (150-450); RED BLOOD COUNT 4.46 10^6/uL (4.30-6.10); WHITE BLOOD COUNT 7.8 10^3/uL (4.0-10.0)
[2019-02-15 15:42] LABS: INR 3.28; PROTHROMBIN TIME 33.4 SECONDS (11.8-14.0)
[2019-02-15 15:43] LABS: PARTIAL THROMBOPLASTIN TIME 69.1 SECONDS (25.0-38.4)
[2019-02-15 15:47] LABS: BLOOD UREA NITROGEN 7 MG/DL (7-18); CALCIUM LEVEL 9.2 MG/DL (8.5-10.1); CARBON DIOXIDE LEVEL 27 MEQ/L (21-32); CHLORIDE LEVEL 108 MEQ/L (98-107); CK-MB VALUE MASS < 1.0 NG/ML (<3.6); CPK CREATINE PHOSPHOKINASE 46 U/L (39-308); CREATININE FOR GFR 0.84 MG/DL (0.70-1.30); GLOMERULAR FILTRATION RATE > 60.0 (>60); GLUCOSE, FASTING 83 MG/DL (70-100); MB/CK RELATIVE INDEX 2.17 (< OR =4); NT-PRO BNP 30 PG/ML (<125); POTASSIUM SERUM 4.4 MEQ/L (3.5-5.1); SODIUM LEVEL 143 MEQ/L (136-145); TROPONIN I < 0.02 NG/ML (< 0.10); URIC ACID 5.5 MG/DL (3.5-7.2)
--- NOTE | 2019-02-15 15:59 | REP ---
Right foot series: Four views. History: Right foot pain and swelling. History of gout. Findings: Four views of the right foot show overall normal mineralization. There is moderate osteoarthritis of the first MTP joint. This is radiographically unchanged from the April 22, 2018 prior study. No acute erosive change is appreciated. There is a small subcortical cyst in the distal end of the proximal phalanx of the great toe at the IP joint, unchanged from prior study as well. There is soft tissue swelling about the mid foot. Impression: No acute erosive change. 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 Subcortical cyst in the proximal phalanx of the great toe at the IP joint, unchanged from April 22, 2018. Midfoot soft tissue swelling. Electronically Signed by Kody Carter MD 02/15/2019 05:40 P
[2019-02-15] MEDS ORDERED: APAP325T4 PO (17:03)
[2019-02-15] MEDS ORDERED: TRAM50TA2 PO ×2 (17:03→17:04)
[2019-02-15] MEDS ORDERED: WARF-20 PO (17:03)
[2019-02-15] MEDS ORDERED: WARF-23 PO (17:03)
--- NOTE | 2019-02-15 19:31 | HPEPDOC ---
[facility] [place] Medical History & Physical Date of Admission Feb 15, 2019 Date of Service: Feb 15, 2019 Primary Care Physician: A Other Provider PCP Timbo Lara Attending Physician: JOSE CORBIN MD History and Physical TIME OF SERVICE 730PM CHIEF COMPLAINT: extremity swelling HISTORY OF PRESENT ILLNESS: Mr. Anderson is a 38-year-old male with a history of multiple DVTs and IVC filter placement, who came into the ED with concerns that he might have more DVTs; for a few days he has been experiencing right upper arm swelling, and bilateral lower extremities swelling. His only associated symptom was dizziness. He denies having chest pain, denies having fevers, denies having chills, denies having shortness of breath. Per discussion with the ED provider bilateral lower extremity ultrasounds confirmed the extension of DVTs despite a therapeutic INR. The right upper extremity ultrasound was negative. She talked with Dr. Regan who recommended overnight observation. REVIEW OF SYSTEMS: 12 point review systems negative except as listed in HPI PAST MEDICAL / SURGICAL HISTORY: 1. 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 History of TBI and seizures 3. Depression/ Anxiety 4. Chronic HTN 5. Chronic Gout 6. History of subtrochanteric femur fracture s/p ORIF 7. History of right knee surgery. 8. History of eye surgery SOCIAL HISTORY: + Tobacco daily Positive alcohol socially Remote history of marijuana use FAMILY HISTORY: Leukemia. Diabetes Heart disease ALLERGIES: Please see below. HOME MEDICATIONS: Please see below. PHYSICAL EXAMINATION: VITAL SIGNS: Please see below GENERAL APPEARANCE: Well-nourished, well-developed, not in apparent distress HEENT: Mucous members moist and pink. Lips acyanotic CARDIOVASCULAR: Regular rate and rhythm. No murmurs, rubs or gallops. Radial pulses are intact, dorsalis pedis pulses are difficult to auscultate LUNGS: Equal air entry bilaterally, he's not using accessory muscles, breath sounds are equal bilaterally EXTREMITIES: The right upper arm is slightly more swollen than the left upper arm, but the skin is not discolored on the arm. Both feet and ankles are reddish purple in color, swollen and cold on palpation. NEUROLOGICAL: Cranial nerves 2-12 are grossly intact. Speech is not dysarthric PSYCHIATRIC: Alert and oriented, able to understand and follow commands LABORATORY DATA: INR 3.28 IMAGING: Feb 15 2019 Right UE US Negative right upper extremity duplex venous ultrasound. No evidence of venous thrombosis. Feb 15 2019 Bilateral LE US In the right lower extremity there is extensive nonocclusive deep vein thrombosis with multi focal involvement of the popliteal, femoral vein, and common femoral vein segments. On the left, there is occlusive venous thrombosis in the mid femoral vein and nonocclusive venous thrombosis in the popliteal and common femoral vein segments. October 24 2018 BLE US "There is partial thrombosis of the bilateral common femoral veins. There is also diffuse partial thrombosis of the superficial femoral veins with complete thrombosis in the mid right superficial femoral vein and in the proximal to mid left superficial femoral vein. No thrombus is seen in the popliteal veins." MICROBIOLOGY: n/A ASSESSMENT: Mr. Anderson is a 38-year-old male with a past medical history of multiple DVTs, traumatic brain injury with seizure disorder, and depression who is admitted for observation because he has tachycardia and recurrent bilateral lower extremity DVTs despite taking warfarin and having a therapeutic INR. PLAN: 1. 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 Tachycardia Based on chart review patient's baseline HR is close to 100 EKG, Trop and BNP reassuring Plan: telemetry / f/u TSH / 1 L bolus 3. Depression/ Anxiety Plan: c/w home meds 4. Chronic HTN Plan: c/w home meds 5. Chronic Gout Plan: c/w home meds DVT Px w Warfarin Dispo: pending clinical course Vital Signs Vital Signs Date Time Temp Pulse Resp B/P (MAP) Pulse Ox O2 Delivery O2 Flow Rate FiO2 02/15/19 12:30 02/15/19 11:15 96.9 104 20 98 Room Air Laboratory Data CBC/BMP Laboratory Tests 02/15/19 15:12 Red Blood Count 4.46, Mean Corpuscular Volume 96.6 H, Mean Corpuscular Hemoglobin 31.8, Mean Corpuscular Hemoglobin Concent 32.9, Red Cell Distribution Width 13.2, Neutrophils (%) (Auto) 66.2 H, Lymphocytes (%) (Auto) 21.1 L, Monocytes (%) (Auto) 8.2 H, Eosinophils (%) (Auto) 3.3 H, Basophils (%) (Auto) 0.8, Neutrophils # (Auto) 5.2, Lymphocytes # (Auto) 1.6, Monocytes # (Auto) 0.6, Eosinophils # (Auto) 0.3, Basophils # (Auto) 0.1, Calcium Level 9.2, Total Creatine Kinase 46 Home Medications Scheduled Allopurinol (Allopurinol) 100 Mg Tablet, 200 MG PO QPM 1600 Amlodipine Besylate (Amlodipine Besylate) 10 Mg Tab, 10 MG PO QPM 1600 Buspirone HCl (Buspirone HCl) 15 Mg Tablet, 15 MG PO TID Duloxetine Hcl (Duloxetine HCl) 30 Mg Capsule.dr, 30 MG PO QPM 1600 Lacosamide (Vimpat) 150 Mg Tab, 150 MG PO BID Levetiracetam (Levetiracetam) 750 Mg Tab, 1,500 MG PO BID Omeprazole (Omeprazole) 20 Mg Cap, 20 MG PO QPM 1600 Paroxetine HCl (Paroxetine) 40 Mg Tab, 40 MG PO QPM 1600 Warfarin Sodium (Warfarin Sodium) 4 Mg Tablet, 4 MG PO QPM TAKES WITH 5MG TABLET FOR TOTAL OF 9MG Warfarin Sodium (Warfarin Sodium) 5 Mg Tablet, 5 MG PO QPM TAKES WITH 4MG TABLET FOR TOTAL OF 9MG Scheduled PRN Acetaminophen (Acetaminophen) 325 Mg Tablet, 650 MG PO Q4H PRN for PAIN Tramadol HCl (Tramadol HCl) 50 Mg Tablet, 50-100 MG PO Q6H PRN for PAIN Allergies Coded Allergies: yohimbine (Unverified Adverse Reaction, Intermediate, STAMINA-RX OTC PRODUCT - HEART PROBLEMS, 01/13/19) A-FIB/CHADSVASC A-FIB History Current/History of A-Fib/PAF?: No Current PO Anticoag Therapy: No JOSE CORBIN MD Feb 15, 2019 19:31
[2019-02-15] MEDS ORDERED: NS 1,000 ML IV ONE (20:30)
[2019-02-15] MEDS ORDERED: ACETAMINOPHEN TAB 650MG DOSE (2X325MG) PO PRN (20:45)
[2019-02-15] MEDS ORDERED: PARoxetine 20 MG TAB PO ONE (20:45)
[2019-02-15] MEDS ORDERED: traMADol 50 MG TAB PO PRN (20:45)
[2019-02-15 20:58] VITALS: BP 131/86
[2019-02-15] MEDS: busPIRone 5 MG TAB PO SCH (21:49)
[2019-02-15] MEDS: levETIRAcetam 250MG TABLET (KEPPRA) PO SCH (21:50)
[2019-02-15] MEDS: LACOSAMIDE 50 MG TAB (VIMPAT) PO SCH (21:51)
[2019-02-15 22:00] VITALS: BP 135/81
[2019-02-16 06:00] VITALS: BP 124/74
--- NOTE | 2019-02-16 06:09 | ECGEPIP ---
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
[2019-02-16 06:13] LABS: HEMATOCRIT 40.2 % (42.0-52.0); HEMOGLOBIN 13.1 g/dl (13.5-17.5); MEAN CORPUSCULAR HEMOGLOBIN 30.8 pg (27.0-33.0); MEAN CORPUSCULAR HGB CONC 32.6 g/dl (32.0-36.5); MEAN CORPUSCULAR VOLUME 94.6 fl (80.0-96.0); PLATELET COUNT, AUTOMATED 262 10^3/uL (150-450); RED BLOOD COUNT 4.25 10^6/uL (4.30-6.10); WHITE BLOOD COUNT 6.5 10^3/uL (4.0-10.0)
[2019-02-16 06:21] LABS: INR 3.11
[2019-02-16 06:45] LABS: BLOOD UREA NITROGEN 8 MG/DL (7-18); CALCIUM LEVEL 9.8 MG/DL (8.5-10.1); CARBON DIOXIDE LEVEL 31 MEQ/L (21-32); CHLORIDE LEVEL 107 MEQ/L (98-107); CREATININE FOR GFR 0.99 MG/DL (0.70-1.30); GLOMERULAR FILTRATION RATE > 60.0 (>60); GLUCOSE, FASTING 101 MG/DL (70-100); POTASSIUM SERUM 4.2 MEQ/L (3.5-5.1); SODIUM LEVEL 141 MEQ/L (136-145)
[2019-02-16] MEDS: busPIRone 5 MG TAB PO SCH (08:58)
[2019-02-16] MEDS: levETIRAcetam 250MG TABLET (KEPPRA) PO SCH (08:58)
[2019-02-16] MEDS: LACOSAMIDE 50 MG TAB (VIMPAT) PO SCH (08:59)
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
--- NOTE | 2019-02-16 15:04 | DS.PDOC ---
Discharge Summary General Date of Admission Feb 15, 2019 at 11:15 Date of Discharge 02/16/19 Discharge Summary PROCEDURES PERFORMED DURING STAY: [None]. DISCHARGE DIAGNOSES: Post Thrombosis Syndrome Acute on Chronic Bilateral DVTS occlusive and nonocclusive with some extension from prior SECONDARY DIAGNOSIS: History of Multiple DVTs & PE (has IVC after and is on warfarin) History of TBI and seizures Depression/ Anxiety Chronic HTN Chronic Gout History of subtrochanteric femur fracture s/p ORIF History of right knee surgery. History of eye surgery COMPLICATIONS/CHIEF COMPLAINT: Dvt Of Lower Extremity,Bilateral. HISTORY OF PRESENT ILLNESS: Venkatesh see history and physical HOSPITAL COURSE: Mr. Anderson is a 38-year-old male with a history of double DVTs in lower extremities and IVC filter placement, who came into the ED with concerns that he might have more DVTs; few days he has been experiencing right upper arm swelling also , and bilateral lower extremities swelling. His only associated symptom was dizziness. He denies having chest pain, denies having fevers, denies having chills, denies having shortness of breath. Per discussion with the ED provider. Bilateral lower extremity ultrasounds confirmed the presence of DVTs despite a therapeutic INR. The right upper extremity ultrasound was negative. BLE DVT Acute on chronic and occlusive and nonocclusive with post thrombosis syndrome has h/o DVTs since 2016. In both the lower extremities and well as once in upper extremity. No DVT in upper extremity this time On coumain with therapeutic INR. Has IVC filter in place Hypercoagulable work up previously showed elevated homocysteine level only. We did not do the MTHFR gene mutation study then has been evaluated by vascular recommended leg elevation, compression stocking ands and continue coumadin needs outpatient referral to hematology Depression/ Anxiety Plan: c/w home meds Chronic HTN Plan: c/w home meds Chronic Gout Plan: c/w home meds DISCHARGE MEDICATIONS: Please see below. ALLERGIES: Please see below. PHYSICAL EXAMINATION ON DISCHARGE: VITAL SIGNS: Please see below. GENERAL APPEARANCE: Well-nourished, well-developed, not in apparent distress HEENT: Mucous members moist and pink. Lips acyanotic CARDIOVASCULAR: Regular rate and rhythm. No murmurs, rubs or gallops. Radial pulses are intact, dorsalis pedis pulses are difficult to auscultate LUNGS: Equal air entry bilaterally, he's not using accessory muscles, breath sounds are equal bilaterally EXTREMITIES: The right upper arm is slightly more swollen than the left upper arm, but the skin is not discolored on the arm. Both feet and ankles are reddish purple in color, swollen and cold on palpation. NEUROLOGICAL: Cranial nerves 2-12 are grossly intact. Speech is not dysarthric PSYCHIATRIC: Alert and oriented, able to understand and follow commands LABORATORY DATA: Please see below. IMAGING: Feb 15 2019 Bilateral LE US In the right lower extremity there is extensive nonocclusive deep vein throm bosis with multi focal involvement of the popliteal, femoral vein, and common femoral vein segments. On the left, there is occlusive venous thrombosis in the mid femoral vein and nonocclusive venous thrombosis in the popliteal and common femoral vein segments. October 24 2018 BLE US "There is partial thrombosis of the bilateral common femoral veins. There is also diffuse partial thrombosis of the superficial femoral veins with complete thrombosis in the mid right superficial femoral vein and in the proximal to mid left superficial femoral vein. No thrombus is seen in the popliteal veins." ACTIVITY: [As tolerated]. DIET: As tolerated DISCHARGE PLAN: Home DISCHARGE INSTRUCTIONS: Follow up with Dr Regan in 1 week FOllow up with PMD in 1 week ITEMS TO FOLLOWUP ON ON OUTPATIENT: Referral to Hematology for recurrent DVTs DISCHARGE CONDITION: [Stable]. TIME SPENT ON DISCHARGE: 35 minutes. Vital Signs/I&Os Vital Signs Date Time Temp Pulse Resp B/P (MAP) Pulse Ox O2 Delivery O2 Flow Rate FiO2 02/16/19 06:00 98.7 99 17 124/74 (91) 98 02/15/19 11:15 Room Air I&O- Last 24 Hours up to 6 AM 02/16/19 06:00 Intake Total 270 ml Output Total 725 ml Balance -455 ml Laboratory Data Labs 24H Laboratory Tests 2 02/15/19 15:12: Immature Granulocyte % (Auto) 0.4, White Blood Count 7.8, Red Blood Count 4.46, Hemoglobin 14.2, Hematocrit 43.1, Mean Corpuscular Volume 96.6H, Mean Corpuscular Hemoglobin 31.8, Mean Corpuscular Hemoglobin Concent 32.9, Red Cell Distribution Width 13.2, Platelet Count 249, Neutrophils (%) (Auto) 66.2H, Lym phocytes (%) (Auto) 21.1L, Monocytes (%) (Auto) 8.2H, Eosinophils (%) (Auto) 3.3H, Basophils (%) (Auto) 0.8, Neutrophils # (Auto) 5.2, Lymphocytes # (Auto) 1.6, Monocytes # (Auto) 0.6, Eosinophils # (Auto) 0.3, Basophils # (Auto) 0.1, Nucleated Red Blood Cells % (auto) 0.0, Prothrombin Time 33.4H, Prothromb Time International Ratio 3.28, Activated Partial Thromboplast Time 69.1H, Anion Gap 8, Glomerular Filtration Rate > 60.0, Uric Acid 5.5, Blood Urea Nitrogen 7, Creatinine 0.84, Sodium Level 143, Potassium Level 4.4, Chloride Level 108H, Carbon Dioxide Level 27, Calcium Level 9.2, Total Creatine Kinase 46, Creatine Kinase MB < 1.0, Creatine Kinase MB Relative Index 2.17, Troponin I < 0.02, [id number]-[id number]-Type Natriuretic Peptide 30 02/15/19 16:22: Urine Color YELLOW, Urine Appearance CLEAR, Urine pH 6.0, Urine Specific [place] 1.015, Urine Protein NEGATIVE, Urine Glucose (UA) NEGATIVE, Urine Ketones NEGATIVE, Urine Blood NEGATIVE, Urine Nitrite NEGATIVE, Urine Bilirubin NEGATIVE, Urine Urobilinogen 0.2, Urine Leukocyte Esterase NEGATIVE, Urine WBC (Auto) 1, Urine RBC (Auto) 2, Urine Hyaline Casts (Auto) 0, Urine Bacteria (Auto) NEGATIVE, Urine Squamous Epithelial Cells 0, Urine Mucus (Auto) SMALL, Urine Sperm (Auto) SMALLH 02/16/19 05:59: Nucleated Red Blood Cells % (auto) 0.0, Prothrombin Time 32.0H, Prothromb Time International Ratio 3.11, Anion Gap 3L, Glomerular Filtration Rate > 60.0, Blood Urea Nitrogen 8, Creatinine 0.99, Sodium Level 141, Potassium Level 4.2, Chloride Level 107, Carbon Dioxide Level 31, Calcium Level 9.8, Thyroid Stimulating Hormone (TSH) 1.510 CBC/BMP Laboratory Tests 02/15/19 15:12 Red Blood Count 4.46, Mean Corpuscular Volume 96.6 H, Mean Corpuscular Hemoglobin 31.8, Mean Corpuscular Hemoglobin Concent 32.9, Red Cell Distribution Width 13.2, Neutrophils (%) (Auto) 66.2 H, Lymphocytes (%) (Auto) 21.1 L, Monocytes (%) (Auto) 8.2 H, Eosinophils (%) (Auto) 3.3 H, Basophils (%) (Auto) 0.8, Neutrophils # (Auto) 5.2, Lymphocytes # (Auto) 1.6, Monocytes # (Auto) 0.6, Eosinophils # (Auto) 0.3, Basophils # (Auto) 0.1, Calcium Level 9.2, Total Creatine Kinase 46 02/16/19 05:59 Red Blood Count 4.25 L, Mean Corpuscular Volume 94.6, Mean Corpuscular Hemoglobin 30.8, Mean Corpuscular Hemoglobin Concent 32.6, Red Cell Distribution Width 13.2, Calcium Level 9.8 Discharge Medications Scheduled Allopurinol (Allopurinol) 100 Mg Tablet, 200 MG PO QPM, (Reported) 1600 Amlodipine Besylate (Amlodipine Besylate) 10 Mg Tab, 10 MG PO QPM, (Reported) 1600 Buspirone HCl (Buspirone HCl) 15 Mg Tablet, 15 MG PO TID, (Reported) Duloxetine Hcl (Duloxetine HCl) 30 Mg Capsule.dr, 30 MG PO QPM, (Reported) 1600 Lacosamide (Vimpat) 150 Mg Tab, 150 MG PO BID, (Reported) Levetiracetam (Levetiracetam) 750 Mg Tab, 1,500 MG PO BID, (Reported) Omeprazole (Omeprazole) 20 Mg Cap, 20 MG PO QPM, (Reported) 1600 Paroxetine HCl (Paroxetine) 40 Mg Tab, 40 MG PO QPM, (Reported) 1600 Warfarin Sodium (Warfarin Sodium) 4 Mg Tablet, 4 MG PO QPM, (Reported) TAKES WITH 5MG TABLET FOR TOTAL OF 9MG Warfarin Sodium (Warfarin Sodium) 5 Mg Tablet, 5 MG PO QPM, (Reported) TAKES WITH 4MG TABLET FOR TOTAL OF 9MG Scheduled PRN Acetaminophen (Acetaminophen) 325 Mg Tablet, 650 MG PO Q4H PRN for PAIN, (Reported) Tramadol HCl (Tramadol HCl) 50 Mg Tablet, 50-100 MG PO Q6H PRN for PAIN, (Reported) Allergies Coded Allergies: yohimbine (Unverified Adverse Reaction, Intermediate, STAMINA-RX OTC PRODUCT - HEART PROBLEMS, 01/13/19) CHAY CLEVEALND MD Feb 16, 2019 14:59
[2019-02-16] MEDS ORDERED: WARFARIN SOD 5 MG TAB PO SCH (17:00)
[2019-02-16] MEDS ORDERED: WARFARIN SOD 4 MG TAB PO SCH (17:00)
[2019-02-16] MEDS ORDERED: ALLOPURINOL 100 MG TAB PO SCH (18:00)
[2019-02-16] MEDS ORDERED: amLODIPine 10 MG TAB PO SCH (18:00)
[2019-02-16] MEDS ORDERED: DULoxetine 30 MG CAP (CYMBALTA) PO SCH (18:00)
[2019-02-16] MEDS ORDERED: OMEPRAZOLE 20 MG CAP PO SCH (18:00)
== END 2019-02-16 16:04 | disposition home or self-care (01) ==
LOC: M ED 11:14 → M ED INP 11:15 → M MSPAV 20:59
PROVIDERS: ADMIT Internal Medicine; ATTEND Internal Medicine Nephrology
DX: I87.003 Postthrombotic syndrome without complications of bilateral lower extremity (principal); I82.503 Chronic embolism and thrombosis of unspecified deep veins of lower extremity, bilateral; Z79.01 Long term (current) use of anticoagulants; I10 Essential (primary) hypertension; M10.9 Gout, unspecified; Z95.828 Presence of other vascular implants and grafts; Z87.820 Personal history of traumatic brain injury; G40.909 Epilepsy, unspecified, not intractable, without status epilepticus; F41.9 Anxiety disorder, unspecified; F32.9 Major depressive disorder, single episode, unspecified; Z88.8 Allergy status to other drugs, medicaments and biological substances; F17.210 Nicotine dependence, cigarettes, uncomplicated
CPT/HCPCS: 36415; 73630; 80048; 81001; 82550; 82553; 83880; 84443; 84484; 84550; 85025; 85027; 85610; 85730; 93005; 93970; 93971; 99284; G0378

== ENCOUNTER 2019-02-20 12:33 | Emergency (ER) | payer MEDICARE, MEDICAID ==
[~2019-02-20] VITALS: Ht 185.4 cm; Wt 92.3 kg
[~2019-02-20 12:33] MED LIST changes: +APAP325T4 PO; +WARF-20 PO; +WARF-23 PO
[2019-02-20 14:38] LABS: BASO # 0.1 10^3/uL (0.0-0.2); BASO % 0.7 % (0.0-1.0); EOS # 0.2 10^3/uL (0.0-0.50); EOS % 1.8 % (0.0-3.0); HEMOGLOBIN 15.2 g/dl (13.5-17.5); LYMPH # 1.2 10^3/uL (1.5-4.5); MEAN CORPUSCULAR HEMOGLOBIN 31.6 pg (27.0-33.0); MEAN CORPUSCULAR VOLUME 95.6 fl (80.0-96.0); MONO # 0.7 10^3/uL (0.0-0.8); MONO % 7.4 % (0.0-5.0); NEUTROPHILS # 7.2 10^3/uL (1.8-7.7); NEUTROPHILS % 76.9 % (36.0-66.0); PLATELET COUNT, AUTOMATED 263 10^3/uL (150-450); RED BLOOD COUNT 4.81 10^6/uL (4.30-6.10); WHITE BLOOD COUNT 9.4 10^3/uL (4.0-10.0)
[2019-02-20 14:50] LABS: INR 2.72; PROTHROMBIN TIME 28.7 SECONDS (11.8-14.0)
[2019-02-20 15:00] LABS: ALBUMIN 3.8 GM/DL (3.2-5.2); ALT/SGPT 38 U/L (12-78); BILIRUBIN,TOTAL 0.3 MG/DL (0.2-1.0); BLOOD UREA NITROGEN 9 MG/DL (7-18); CALCIUM LEVEL 9.8 MG/DL (8.5-10.1); CARBON DIOXIDE LEVEL 28 MEQ/L (21-32); CHLORIDE LEVEL 108 MEQ/L (98-107); CREATININE FOR GFR 0.91 MG/DL (0.70-1.30); GLOMERULAR FILTRATION RATE > 60.0 (>60); GLUCOSE, FASTING 101 MG/DL (70-100); SODIUM LEVEL 140 MEQ/L (136-145); TOTAL PROTEIN 7.1 GM/DL (6.4-8.2)
[2019-02-20 16:00] VITALS: BP 128/85
--- NOTE | 2019-02-20 20:32 | ECGEPIP ---
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
[2019-02-22 08:08] LABS: LACOSAMIDE LEVEL 8.3 ug/mL (5.0-10.0); LEVETIRACETAM (KEPPRA) 38.8 ug/mL (10.0-40.0)
[2019-03-21] MEDS ORDERED: ELIQ5TAB PO (14:28)
== END 2019-02-20 16:41 | disposition home or self-care (01) ==
LOC: M ED 12:33 → EDBD 12:33 → M ED 16:41
DX: R55 Syncope and collapse (principal); R56.9 Unspecified convulsions; I10 Essential (primary) hypertension; K21.9 Gastro-esophageal reflux disease without esophagitis; K59.00 Constipation, unspecified; R74.0 Nonspecific elevation of levels of transaminase and lactic acid dehydrogenase [LDH]; F42.9 Obsessive-compulsive disorder, unspecified; F32.9 Major depressive disorder, single episode, unspecified; Z86.718 Personal history of other venous thrombosis and embolism; F17.200 Nicotine dependence, unspecified, uncomplicated; Z79.899 Other long term (current) drug therapy; Z79.01 Long term (current) use of anticoagulants; Z88.8 Allergy status to other drugs, medicaments and biological substances

== ENCOUNTER → 2019-08-22 | Outpatient (REF) | payer MEDICARE, MEDICAID ==
[~2019-08-22] MED LIST changes: +ELIQ5TAB PO; +OMEP1CAP73 PO; -OMEP20CA4 PO
[2019-08-22 10:41] LABS: BASO # 0.1 10^3/uL (0.0-0.2); BASO % 0.7 % (0.0-1.0); EOS # 0.2 10^3/uL (0.0-0.5); EOS % 2.2 % (0.0-3.0); HEMATOCRIT 56.8 % (42.0-52.0); HEMOGLOBIN 18.5 g/dl (13.5-17.5); LYMPH # 1.9 10^3/uL (1.5-5.0); LYMPH % 27.8 % (24.0-44.0); MEAN CORPUSCULAR HEMOGLOBIN 31.9 pg (27.0-33.0); MEAN CORPUSCULAR HGB CONC 32.6 g/dl (32.0-36.5); MEAN CORPUSCULAR VOLUME 97.9 fl (80.0-96.0); MONO # 0.6 10^3/uL (0.0-0.8); MONO % 8.8 % (0.0-5.0); NEUTROPHILS # 4.1 10^3/uL (1.5-8.5); NEUTROPHILS % 60.1 % (36.0-66.0); PLATELET COUNT, AUTOMATED 235 10^3/uL (150-450); WHITE BLOOD COUNT 6.9 10^3/uL (4.0-10.0)
[2019-08-22 10:56] LABS: INR 0.97; PROTHROMBIN TIME 12.6 SECONDS (11.8-14.0)
[2019-08-22 10:58] LABS: ALBUMIN 4.9 GM/DL (3.2-5.2); ALT/SGPT 48 U/L (12-78); BILIRUBIN,TOTAL 0.7 MG/DL (0.2-1.0); BLOOD UREA NITROGEN 8 MG/DL (7-18); CALCIUM LEVEL 9.8 MG/DL (8.5-10.1); CARBON DIOXIDE LEVEL 28 MEQ/L (21-32); CHLORIDE LEVEL 110 MEQ/L (98-107); CHOLESTEROL LEVEL 209 MG/DL (<200); CHOLESTEROL RISK RATIO 4.098 (<5); GLOMERULAR FILTRATION RATE > 60.0 (>60); GLUCOSE, FASTING 108 MG/DL (70-100); HDL CHOLESTEROL 51 MG/DL (>40); LDL CHOLESTEROL 134 MG/DL (<100); NON-HDL-C 158 MG/DL; POTASSIUM SERUM 3.5 MEQ/L (3.5-5.1); SODIUM LEVEL 144 MEQ/L (136-145); TOTAL PROTEIN 8.3 GM/DL (6.4-8.2); TRIGLYCERIDES LEVEL 118 MG/DL (<150)
[2019-08-22 11:01] LABS: HEMOGLOBIN A1c 5.6 %
== END ==
LOC: M LAB REF 09:32
PROVIDERS: ATTEND Family Medicine
DX: I82.629 Acute embolism and thrombosis of deep veins of unspecified upper extremity (principal); E07.9 Disorder of thyroid, unspecified; E78.00 Pure hypercholesterolemia, unspecified

== ENCOUNTER 2020-02-06 14:38 | Emergency (ER) | payer MEDICARE, MEDICAID ==
[~2020-02-06 14:38] MED LIST changes: -AMLO10TA5 PO; +AMLO1TAB25 PO; -COUM6TAB PO; +COUM6TAB10 PO; -COUM7.5T PO; +COUM7.5T6 PO; -MAPA325T2 PO; +MAPA325T8 PO; +PANT40TA29 PO; -PANT40TA3 PO
[2020-02-06] MEDS ORDERED: ISOVUE-370 76% 100ML VIAL As Ordered ONE (18:59)
[2020-03-07 11:56] LABS: D-DIMER QUANT 709.87 ng/ml (<500); INR 1.07; PARTIAL THROMBOPLASTIN TIME 33.3 SECONDS (25.0-38.4); PROTHROMBIN TIME 14.1 SECONDS (11.8-14.0)
--- NOTE | 2020-03-20 17:00 | ECGEPIP ---
SINUS RHYTHM NONSPECIFIC ST & T-WAVE CHANGES SEE SCANNED DOWNTIME REPORT MTDD
[2020-03-22 12:41] LABS: ALBUMIN 4.1 GM/DL (3.2-5.2); ALT/SGPT 58 U/L (12-78); BILIRUBIN,DIRECT 0.3 MG/DL (0.0-0.2); BILIRUBIN,TOTAL 0.8 MG/DL (0.2-1.0); BLOOD UREA NITROGEN 6 MG/DL (7-18); CALCIUM LEVEL 9.4 MG/DL (8.5-10.1); CARBON DIOXIDE LEVEL 31 MEQ/L (21-32); CHLORIDE LEVEL 105 MEQ/L (98-107); CREATININE FOR GFR 0.92 MG/DL (0.70-1.30); GLOMERULAR FILTRATION RATE > 60.0 (>60); GLUCOSE, FASTING 98 MG/DL (70-100); LIPASE 76 U/L (73-393); POTASSIUM SERUM 3.9 MEQ/L (3.5-5.1); SODIUM LEVEL 139 MEQ/L (136-145); TOTAL PROTEIN 7.4 GM/DL (6.4-8.2)
[2020-04-25] MEDS ORDERED: VIMP100T PO (13:07)
[2020-04-25] MEDS ORDERED: KEPP10002 PO (13:07)
[2020-04-25] MEDS ORDERED: BUSP10TA PO (13:07)
[2020-04-25] MEDS ORDERED: CYMB60CA3 PO (13:07)
[2020-04-25] MEDS ORDERED: MENS MULTIVITAMIN PO (13:07)
[2020-04-25 14:25] LABS: BASO # 0.1 10^3/uL (0.0-0.2); BASO % 0.5 % (0.0-1.0); EOS # 0.3 10^3/uL (0.0-0.5); EOS % 2.6 % (0.0-3.0); HEMOGLOBIN 17.1 g/dl (13.5-17.5); LYMPH # 1.6 10^3/uL (1.5-5.0); LYMPH % 16.5 % (24.0-44.0); MEAN CORPUSCULAR HEMOGLOBIN 33.2 pg (27.0-33.0); MEAN CORPUSCULAR HGB CONC 33.5 g/dl (32.0-36.5); MONO % 9.9 % (0.0-5.0); NEUTROPHILS # 6.8 10^3/uL (1.5-8.5); NEUTROPHILS % 70.2 % (36.0-66.0); PLATELET COUNT, AUTOMATED 177 10^3/uL (150-450); RED BLOOD COUNT 5.15 10^6/uL (4.30-6.10); WHITE BLOOD COUNT 9.7 10^3/uL (4.0-10.0)
== END 2020-02-06 22:30 | disposition home or self-care (01) ==
LOC: M ED 14:38
DX: I82.411 Acute embolism and thrombosis of right femoral vein (principal); S22.030A Wedge compression fracture of third thoracic vertebra, initial encounter for closed fracture; S22.010A Wedge compression fracture of first thoracic vertebra, initial encounter for closed fracture; S22.020A Wedge compression fracture of second thoracic vertebra, initial encounter for closed fracture; S22.050A Wedge compression fracture of T5-T6 vertebra, initial encounter for closed fracture; S82.831A Other fracture of upper and lower end of right fibula, initial encounter for closed fracture; F10.120 Alcohol abuse with intoxication, uncomplicated; W01.0XXA Fall on same level from slipping, tripping and stumbling without subsequent striking against object, initial encounter; Y92.098 Other place in other non-institutional residence as the place of occurrence of the external cause; I10 Essential (primary) hypertension; R56.9 Unspecified convulsions; Z86.73 Personal history of transient ischemic attack (TIA), and cerebral infarction without residual deficits; Z86.718 Personal history of other venous thrombosis and embolism; Z79.899 Other long term (current) drug therapy; Z79.01 Long term (current) use of anticoagulants; Z88.8 Allergy status to other drugs, medicaments and biological substances
CPT/HCPCS: 70450; 71275; 73090; 73564; 80048; 80076; 83690; 85025; 85379; 85610; 85730; 86850; 86900; 86901; 93005; 93971; 99284; Q9967

== ENCOUNTER 2020-03-27 22:22 | Emergency (ER) | payer MEDICARE, MEDICAID ==
[~2020-03-27] VITALS: Ht 185.4 cm; Wt 88.2 kg
[2020-03-28 00:13] LABS: BASO # 0.1 10^3/uL (0.0-0.2); BASO % 0.6 % (0.0-1.0); EOS # 0.3 10^3/uL (0.0-0.5); EOS % 2.5 % (0.0-3.0); HEMATOCRIT 53.5 % (42.0-52.0); HEMOGLOBIN 18.2 g/dl (13.5-17.5); LYMPH # 1.9 10^3/uL (1.5-5.0); LYMPH % 18.8 % (24.0-44.0); MEAN CORPUSCULAR HEMOGLOBIN 33.6 pg (27.0-33.0); MEAN CORPUSCULAR VOLUME 98.9 fl (80.0-96.0); MONO % 10.3 % (0.0-5.0); NEUTROPHILS # 6.7 10^3/uL (1.5-8.5); NEUTROPHILS % 67.3 % (36.0-66.0); PLATELET COUNT, AUTOMATED 184 10^3/uL (150-450); RED BLOOD COUNT 5.41 10^6/uL (4.30-6.10)
[2020-03-28 00:39] LABS: BLOOD UREA NITROGEN 10 MG/DL (7-18); CALCIUM LEVEL 9.8 MG/DL (8.5-10.1); CARBON DIOXIDE LEVEL 23 MEQ/L (21-32); CHLORIDE LEVEL 120 MEQ/L (98-107); CREATININE FOR GFR 0.96 MG/DL (0.70-1.30); ETHYL ALCOHOL (ETHANOL) 0.005 % (0.000-0.010); GLOMERULAR FILTRATION RATE > 60.0 (>60); GLUCOSE, FASTING 99 MG/DL (70-100); LIPASE 111 U/L (73-393); SODIUM LEVEL 153 MEQ/L (136-145)
[2020-03-28] MEDS ORDERED: NS 1,000 ML IV ONE (00:45)
[2020-03-28] MEDS ORDERED: ONDANSETRON 4MG/2ML VIAL IV ONE (00:45)
[2020-03-28] MEDS ORDERED: ONDA4TAB6 PO (04:30)
[2020-03-28 05:00] VITALS: BP 134/68
[2020-04-25] MEDS ORDERED: VIMP100T PO (13:07)
[2020-04-25] MEDS ORDERED: BUSP10TA PO (13:07)
[2020-04-25] MEDS ORDERED: MENS MULTIVITAMIN PO (13:07)
[2020-04-25] MEDS ORDERED: CYMB60CA3 PO (13:07)
[2020-04-25] MEDS ORDERED: KEPP10002 PO (13:07)
== END 2020-03-28 05:16 | disposition home or self-care (01) ==
LOC: M ED 22:22
DX: K52.9 Noninfective gastroenteritis and colitis, unspecified (principal); F31.9 Bipolar disorder, unspecified; F17.200 Nicotine dependence, unspecified, uncomplicated; Z79.899 Other long term (current) drug therapy; Z79.01 Long term (current) use of anticoagulants; Z88.8 Allergy status to other drugs, medicaments and biological substances; Z86.718 Personal history of other venous thrombosis and embolism
CPT/HCPCS: 80048; 83690; 85025; 96374; 99284; G0480; J2405

== ENCOUNTER 2020-05-20 17:11 | Emergency (ER) | payer MEDICARE, MEDICAID ==
[~2020-05-20] VITALS: Ht 185.4 cm; Wt 92.3 kg
[~2020-05-20 17:11] MED LIST changes: +BUSP10TA PO; +CYMB60CA3 PO; +MENS MULTIVITAMIN PO; +ONDA4TAB6 PO; +VIMP100T PO
[2020-05-20 18:59] LABS: BASO # 0.1 10^3/uL (0.0-0.2); BASO % 0.7 % (0.0-1.0); EOS # 0.4 10^3/uL (0.0-0.5); EOS % 4.5 % (0.0-3.0); LYMPH # 1.4 10^3/uL (1.5-5.0); LYMPH % 16.4 % (24.0-44.0); MEAN CORPUSCULAR HEMOGLOBIN 33.3 pg (27.0-33.0); MEAN CORPUSCULAR HGB CONC 33.3 g/dl (32.0-36.5); MONO # 0.9 10^3/uL (0.0-0.8); MONO % 11.1 % (0.0-5.0); NEUTROPHILS # 5.6 10^3/uL (1.5-8.5); NEUTROPHILS % 66.7 % (36.0-66.0); PLATELET COUNT, AUTOMATED 147 10^3/uL (150-450); WHITE BLOOD COUNT 8.4 10^3/uL (4.0-10.0)
[2020-05-20 19:17] LABS: INR 0.98; PROTHROMBIN TIME 13.2 SECONDS (12.5-14.3)
[2020-05-20 19:18] LABS: PARTIAL THROMBOPLASTIN TIME 30.9 SECONDS (24.2-38.5)
[2020-05-20 19:26] LABS: ALBUMIN 3.9 GM/DL (3.2-5.2); ALT/SGPT 142 U/L (12-78); BILIRUBIN,TOTAL 0.7 MG/DL (0.2-1.0); BLOOD UREA NITROGEN 8 MG/DL (7-18); CALCIUM LEVEL 9.7 MG/DL (8.5-10.1); CARBON DIOXIDE LEVEL 30 MEQ/L (21-32); CHLORIDE LEVEL 109 MEQ/L (98-107); CREATININE FOR GFR 0.88 MG/DL (0.70-1.30); GLOMERULAR FILTRATION RATE > 60.0 (>60); GLUCOSE, FASTING 88 MG/DL (70-100); POTASSIUM SERUM 3.9 MEQ/L (3.5-5.1); SODIUM LEVEL 142 MEQ/L (136-145)
--- NOTE | 2020-05-20 21:25 | ECGEPIP ---
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
[2020-05-20 22:41] VITALS: BP 158/80
--- NOTE | 2020-05-21 07:17 | ECGEPIP ---
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
--- NOTE | 2020-05-21 07:51 | REP ---
INDICATION: chest pain COMPARISON: None. TECHNIQUE: Portable AP view of the chest FINDINGS: The mediastinum and cardiac silhouette are stable and within normal limits for portable technique. The lung bassett demonstrate chronic appearing interstitial changes without acute consolidation, effusion, or pneumothorax. Skeletal structures are intact. IMPRESSION: Chronic interstitial changes. Cannot exclude mild bronchitis. <Electronically signed by Tom Almaraz > 05/21/20 0725
== END 2020-05-20 22:46 | disposition home or self-care (01) ==
LOC: EDBD 17:11 → M ED 17:11
DX: R07.9 Chest pain, unspecified (principal); G40.909 Epilepsy, unspecified, not intractable, without status epilepticus; M10.9 Gout, unspecified; F41.9 Anxiety disorder, unspecified; F32.9 Major depressive disorder, single episode, unspecified; I10 Essential (primary) hypertension; F17.200 Nicotine dependence, unspecified, uncomplicated; Z88.8 Allergy status to other drugs, medicaments and biological substances; Z79.899 Other long term (current) drug therapy; Z79.01 Long term (current) use of anticoagulants

== ENCOUNTER → 2020-08-06 | Outpatient (REF) | payer MEDICARE, OTHER ==
[~2020-08-06] MED LIST changes: +COLC0.6T47 PO; -COLC1TAB13 PO
[2020-08-06 14:08] LABS: ALT/SGPT 155 U/L (12-78); BILIRUBIN,TOTAL 0.5 MG/DL (0.2-1.0); BLOOD UREA NITROGEN 12 MG/DL (7-18); CALCIUM LEVEL 9.8 MG/DL (8.5-10.1); CARBON DIOXIDE LEVEL 29 MEQ/L (21-32); CHLORIDE LEVEL 109 MEQ/L (98-107); CHOLESTEROL LEVEL 219 MG/DL (<200); CHOLESTEROL RISK RATIO 5.763 (<5); CREATININE FOR GFR 0.99 MG/DL (0.70-1.30); GLOMERULAR FILTRATION RATE > 60.0 (>60); GLUCOSE, FASTING 132 MG/DL (70-100); HDL CHOLESTEROL 38 MG/DL (>40); LDL CHOLESTEROL 143 MG/DL (<100); NON-HDL-C 181 MG/DL; POTASSIUM SERUM 3.6 MEQ/L (3.5-5.1); SODIUM LEVEL 144 MEQ/L (136-145); TOTAL PROTEIN 7.1 GM/DL (6.4-8.2); TRIGLYCERIDES LEVEL 189 MG/DL (<150)
[2020-08-06 14:20] LABS: HEMOGLOBIN A1c 5.6 %
== END ==
LOC: M LAB REF 12:19
PROVIDERS: ATTEND Family Medicine Addiction Medicine
DX: I10 Essential (primary) hypertension (principal); R73.09 Other abnormal glucose

== ENCOUNTER → 2020-08-21 | Outpatient (REF) | payer MEDICARE, OTHER ==
[~2020-08-21] MED LIST changes: -LISI-538 PO; +LISI20TA33 PO
[2020-08-21 18:30] LABS: ALBUMIN 4.2 GM/DL (3.2-5.2); ALT/SGPT 123 U/L (12-78); BILIRUBIN,TOTAL 0.3 MG/DL (0.2-1.0); BLOOD UREA NITROGEN 12 MG/DL (7-18); CALCIUM LEVEL 9.6 MG/DL (8.5-10.1); CARBON DIOXIDE LEVEL 30 MEQ/L (21-32); CHLORIDE LEVEL 107 MEQ/L (98-107); CREATININE FOR GFR 1.06 MG/DL (0.70-1.30); GLOMERULAR FILTRATION RATE > 60.0 (>60); GLUCOSE, FASTING 78 MG/DL (70-100); POTASSIUM SERUM 3.7 MEQ/L (3.5-5.1); SODIUM LEVEL 144 MEQ/L (136-145)
[2020-08-21 18:47] LABS: HEPATITIS B SURFACE ANTIGEN NEGATIVE (NEGATIVE)
[2020-08-21 19:14] LABS: HEPATITIS C VIRUS ABY INDEX 0.1 INDEX (<0.8)
[2020-08-21 19:15] LABS: HEPATITIS B CORE ANTIBODY IGM NEGATIVE (NEGATIVE)
[2020-08-21 19:17] LABS: HEPATITIS A ANTIBODY IGM NEGATIVE (NEGATIVE)
== END ==
LOC: M LAB REF 16:38
PROVIDERS: ATTEND Family Medicine Addiction Medicine
DX: R94.5 Abnormal results of liver function studies (principal)

== ENCOUNTER → 2020-08-25 | Outpatient (CLI) | payer MEDICARE, OTHER ==
--- NOTE | 2020-08-25 16:57 | REP ---
INDICATION: DYSPNEA, UNSPECIFIED COMPARISON: 05/20/2020. TECHNIQUE: PA/Lateral FINDINGS: Lungs: There are stable chronic interstitial fibrotic changes bilaterally, with no evidence of acute infiltrate. Heart: Normal in size. Mediastinum: Mediastinal silhouette unremarkable. Pleural angles: Unremarkable.. Bones and soft tissues: Unremarkable. IMPRESSION: No acute pulmonary disease. Stable chronic changes. <Electronically signed by Donis Betancourt > 08/25/20 [id number]
== END ==
LOC: M RAD 12:13
PROVIDERS: ATTEND Physician Assistant
DX: R06.00 Dyspnea, unspecified (principal)

== ENCOUNTER → 2020-09-18 | Outpatient (REF) | payer MEDICARE, OTHER ==
[2020-09-18 17:16] LABS: ALBUMIN 4.2 GM/DL (3.2-5.2); ALT/SGPT 116 U/L (12-78); BILIRUBIN,TOTAL 0.5 MG/DL (0.2-1.0); BLOOD UREA NITROGEN 6 MG/DL (7-18); CARBON DIOXIDE LEVEL 28 MEQ/L (21-32); CHLORIDE LEVEL 108 MEQ/L (98-107); CREATININE FOR GFR 0.92 MG/DL (0.70-1.30); GLOMERULAR FILTRATION RATE > 60.0 (>60); GLUCOSE, FASTING 105 MG/DL (70-100); POTASSIUM SERUM 3.5 MEQ/L (3.5-5.1); SODIUM LEVEL 142 MEQ/L (136-145); TOTAL PROTEIN 7.2 GM/DL (6.4-8.2)
== END ==
LOC: M LAB REF 16:03
PROVIDERS: ATTEND Family Medicine Addiction Medicine
DX: R94.5 Abnormal results of liver function studies (principal)

== ENCOUNTER → 2020-11-01 | Outpatient (CLI) | payer MEDICARE, OTHER ==
--- NOTE | 2020-11-04 10:46 | SLEEPCENT ---
NOCTURNAL POLYSOMNOGRAPHY DATE: 11/01/2020 ORDERED BY: JESUS MANUEL Murray Nocturnal polysomnography was performed for evaluation of sleep physiology in this patient with a history of excessive somnolence and nonrestorative sleep. 7 hours and 5 minutes of data were reviewed. There were 371 minutes of sleep identified. Sleep latency was mildly prolonged at 20 minutes. REM latency was mildly prolonged at 151 minutes. Sleep architecture was fair with three REM cycles. Overall sleep efficiency was 88.1%. The patient's electrocardiogram showed a sinus rhythm with an average heart rate of 80 beats per minute. EEG showed normal waveforms for wake and sleep. There were 112 respiratory events identified of 10 seconds in duration or greater for an apnea-hypopnea index of 18.1. The events were primarily obstructive, not exclusive to sleep stage. More frequent, but not exclusive to the supine posture. Arousals from respiratory events occurred 7.8 times per hour and oxygen desaturations were seen below 90%. There was some minor activity in the limb leads, but limb movement arousal index was 2.9. IMPRESSION: Obstructive sleep apnea syndrome (G47.33), apnea-hypopnea index 18.1. RECOMMENDATION: The patient should be encouraged to return [facility]. In the interim, alcohol and sedative avoidance should be practiced and caution exercised during the operation of motor vehicles. Dr. Duvall
== END ==
LOC: M SLEEP 20:00
PROVIDERS: ATTEND Physician Assistant
DX: R40.0 Somnolence (principal)

== ENCOUNTER → 2020-11-27 | Outpatient (CLI) | payer MEDICARE, MEDICAID ==
[~2020-11-27] MED LIST changes: +METHACHOLINE KIT (J7674) INH ONE
--- NOTE | 2020-11-27 13:55 | PFTRPT ---
Height: 72.00 Inches Weight: 215.00 Lbs BSA: 2.20 Diagnosis: R06.00 DATE: 11/27/2020 ORDERED BY: Nicola Can D.O. QUALITY: Study of excellent technical quality. PROCEDURE: Under protocol, methacholine was administered. Even after a maximal dose of 25 mg or 188.875 CDUs, no provocation dose ever achieved. Flow rates did return to baseline after bronchodilator administration. IMPRESSION: Negative methacholine challenge study. MTDD
== END ==
LOC: M CARPUL 11-06 10:34
PROVIDERS: ATTEND Internal Medicine Pulmonary Disease
DX: R06.00 Dyspnea, unspecified (principal)
CPT/HCPCS: 94070; 95070; J7674

== ENCOUNTER → 2020-12-12 | Outpatient (CLI) | payer MEDICARE, OTHER ==
[~2020-12-12] MED LIST changes: +GABA-282; -METHACHOLINE KIT (J7674) INH ONE
--- NOTE | 2020-12-15 16:13 | SLEEPCENT ---
NOCTURNAL POLYSOMNOGRAPHY DATE: 12/12/2020 ORDERED BY: JESUS MANUEL Murray Nocturnal polysomnography was performed for the titration of pressure therapy in this patient with obstructive sleep apnea syndrome with apnea-hypopnea index of 18.1. For testing a ResMed F20 AirFit full face mask of large size was used, 5 cm of water pressure were applied to the circuit, and the lights were extinguished. 8 hours and 10 minutes of data were reviewed. There were 393 minutes of sleep identified. Sleep latency was normal at 16 minutes. REM latency was delayed at 241 minutes. Sleep architecture improved late in the study on optimal pressure therapy and there were two REM cycles noted. Overall sleep efficiency was 81.5%. The electrocardiogram showed a sinus rhythm with an average heart rate of 78 beats per minute. EEG showed normal waveforms for wake and sleep. Respiratory events were best palliated with CPAP at a pressure of 7. Some scattered limb activity was noted during this study. Limb movement arousal index was 10.1. IMPRESSION: Obstructive sleep apnea syndrome (G47.33). RECOMMENDATION: Nightly use of pressure therapy 7 cm of water.
== END ==
LOC: M SLEEP 20:00
PROVIDERS: ATTEND Physician Assistant
DX: G47.33 Obstructive sleep apnea (adult) (pediatric) (principal)

== ENCOUNTER 2021-02-25 20:53 | Emergency (ER) | payer MEDICARE, OTHER ==
[~2021-02-25] VITALS: Ht 185.4 cm; Wt 96.6 kg
[2021-02-25 20:54] VITALS: BP 150/88
== END 2021-02-26 00:38 | disposition left against medical advice (07) ==
LOC: M ED 20:53
DX: Z53.29 Procedure and treatment not carried out because of patient's decision for other reasons (principal)

== ENCOUNTER → 2021-07-16 | Outpatient (CLI) | payer MEDICARE, OTHER ==
[~2021-07-16] MED LIST changes: -CYMB60CA3 PO; +CYMB60CA4 PO; -GABA-282; +GABA-282 PO; -KLOR20TA42 PO; -LISI10TA15 PO; +LISI10TA24 PO; +MULT1CAP16 PO; +POTA-141 PO
[2021-07-16 16:13] LABS: BASO # 0.1 10^3/uL (0.0-0.2); BASO % 0.5 % (0.0-1.0); EOS # 0.2 10^3/uL (0.0-0.5); EOS % 2.2 % (0.0-3.0); HEMOGLOBIN 18.3 g/dl (13.5-17.5); LYMPH % 17.9 % (24.0-44.0); MEAN CORPUSCULAR HEMOGLOBIN 33.6 pg (27.0-33.0); MEAN CORPUSCULAR HGB CONC 33.9 g/dl (32.0-36.5); MEAN CORPUSCULAR VOLUME 99.1 fl (80.0-96.0); MONO # 0.9 10^3/uL (0.0-0.8); MONO % 8.3 % (2.0-8.0); NEUTROPHILS # 7.8 10^3/uL (1.5-8.5); NEUTROPHILS % 70.6 % (36.0-66.0); PLATELET COUNT, AUTOMATED 188 10^3/uL (150-450); RED BLOOD COUNT 5.45 10^6/uL (4.30-6.10)
[2021-07-16 16:45] LABS: ALBUMIN 4.3 GM/DL (3.2-5.2); ALT/SGPT 74 U/L (12-78); BILIRUBIN,TOTAL 0.5 MG/DL (0.2-1.0); BLOOD UREA NITROGEN 9 MG/DL (7-18); CALCIUM LEVEL 9.8 MG/DL (8.5-10.1); CARBON DIOXIDE LEVEL 29 MEQ/L (21-32); CHLORIDE LEVEL 107 MEQ/L (98-107); CREATININE FOR GFR 0.96 MG/DL (0.70-1.30); FERRITIN 41 NG/ML (26-388); GLOMERULAR FILTRATION RATE > 60.0 (>60); GLUCOSE, FASTING 96 MG/DL (70-100); IRON (FE) 79 UG/DL (65-175); PERCENT SATURATION 18.4 % (19.7-50.0); SODIUM LEVEL 142 MEQ/L (136-145); TOTAL IRON BINDING CAPACITY 429 UG/DL (250-450); TOTAL PROTEIN 7.7 GM/DL (6.4-8.2)
== END ==
LOC: M LAB 15:19
PROVIDERS: ATTEND Internal Medicine Hematology & Oncology
DX: D45 Polycythemia vera (principal)

== ENCOUNTER → 2021-07-16 | Outpatient (CLI) | payer MEDICARE, MEDICAID ==
[2021-07-16 16:12] LABS: BASO # 0.1 10^3/uL (0.0-0.2); BASO % 0.6 % (0.0-1.0); EOS # 0.2 10^3/uL (0.0-0.5); EOS % 1.9 % (0.0-3.0); HEMATOCRIT 52.4 % (42.0-52.0); HEMOGLOBIN 17.9 g/dl (13.5-17.5); LYMPH # 1.9 10^3/uL (1.5-5.0); MEAN CORPUSCULAR HEMOGLOBIN 33.8 pg (27.0-33.0); MEAN CORPUSCULAR HGB CONC 34.2 g/dl (32.0-36.5); MEAN CORPUSCULAR VOLUME 99.1 fl (80.0-96.0); MONO # 0.9 10^3/uL (0.0-0.8); MONO % 8.2 % (2.0-8.0); NEUTROPHILS # 7.9 10^3/uL (1.5-8.5); NEUTROPHILS % 71.9 % (36.0-66.0); PLATELET COUNT, AUTOMATED 186 10^3/uL (150-450); RED BLOOD COUNT 5.29 10^6/uL (4.30-6.10)
[2021-07-16 16:46] LABS: ALBUMIN 4.3 GM/DL (3.2-5.2); ALT/SGPT 74 U/L (12-78); BILIRUBIN,TOTAL 0.4 MG/DL (0.2-1.0); BLOOD UREA NITROGEN 9 MG/DL (7-18); CALCIUM LEVEL 9.8 MG/DL (8.5-10.1); CARBON DIOXIDE LEVEL 29 MEQ/L (21-32); CHLORIDE LEVEL 106 MEQ/L (98-107); CREATININE FOR GFR 0.98 MG/DL (0.70-1.30); GLOMERULAR FILTRATION RATE > 60.0 (>60); GLUCOSE, FASTING 94 MG/DL (70-100); SODIUM LEVEL 140 MEQ/L (136-145); TOTAL PROTEIN 7.7 GM/DL (6.4-8.2)
[2021-07-16 16:50] LABS: FOLATE > 24.0 NG/ML
[2021-07-17 09:41] LABS: VITAMIN B12 LEVEL 356 PG/ML
== END ==
LOC: M LAB 15:13
PROVIDERS: ATTEND Psychiatry & Neurology Neurology
DX: R56.9 Unspecified convulsions (principal); D45 Polycythemia vera

== ENCOUNTER → 2021-09-29 | Outpatient (CLI) | payer MEDICARE, MEDICAID ==
[~2021-09-29] MED LIST changes: +GABA600T4; +MULT1CAP3 PO
== END ==
LOC: M RAD 06:39
PROVIDERS: ATTEND Specialist
DX: D75.1 Secondary polycythemia (principal); F10.10 Alcohol abuse, uncomplicated

== ENCOUNTER → 2021-10-30 | Outpatient (CLI) | payer MEDICARE, MEDICAID | LOC: M RAD 13:50 | PROVIDERS: ATTEND Family Medicine Addiction Medicine | DX: M25.562 Pain in left knee (principal) ==

== ENCOUNTER → 2022-06-10 | Outpatient (REF) | payer MEDICARE, MEDICAID, OTHER ==
[~2022-06-10] MED LIST changes: +BUSP15TA48 PO; -BUSP15TA90 PO
[2022-06-10 13:18] LABS: ALBUMIN 4.1 G/DL (3.2-5.2); ALKALINE PHOSPHATASE 137 U/L (46-116); ALT/SGPT 63 U/L (7.0-40); AST/SGOT 39 U/L (<34); BILIRUBIN,TOTAL 0.4 MG/DL (0.3-1.2); BLOOD UREA NITROGEN 13 MG/DL (9-23); CALCIUM LEVEL 9.4 MG/DL (8.5-10.1); CARBON DIOXIDE LEVEL 26 MMOL/L (20-31); CHLORIDE LEVEL 113 MMOL/L (98-107); CHOLESTEROL LEVEL 153 MG/DL (<200); CHOLESTEROL RISK RATIO 3.66 (<5); CREATININE FOR GFR 0.96 MG/DL (0.70-1.30); GLOMERULAR FILTRATION RATE > 60.0 (>60); GLUCOSE, FASTING 127 MG/DL (60-100); HDL CHOLESTEROL 41.8 MG/DL (>40); NON-HDL-C 111 MG/DL; POTASSIUM SERUM 3.8 MMOL/L (3.5-5.1); SODIUM LEVEL 146 MMOL/L (136-145); TOTAL PROTEIN 7.5 G/DL (5.7-8.2); TRIGLYCERIDES LEVEL 469 MG/DL (<150)
[2022-06-10 13:19] LABS: THYROID STIMULATING HORMONE 1.596 uIU/ML (0.55-4.78)
[2022-06-10 14:21] LABS: HEMOGLOBIN A1c 5.6 % (4.0-6.0)
== END ==
LOC: M LAB REF 12:21
PROVIDERS: ATTEND Family Medicine Addiction Medicine
DX: R73.9 Hyperglycemia, unspecified (principal)

== ENCOUNTER 2022-07-15 18:19 | Emergency (ER) | payer MEDICARE, MEDICAID ==
[~2022-07-15] VITALS: Ht 185.4 cm; Wt 98.2 kg
[~2022-07-15 18:19] MED LIST changes: -PAXI20TA29 PO; +PAXI20TA30 PO
[2022-07-15] MEDS ORDERED: NS 1,000 ML IV ONE (21:15)
[2022-07-15 21:47] LABS: BASO # 0.1 10^3/uL (0.0-0.2); BASO % 0.6 % (0.0-1.0); EOS # 0.4 10^3/uL (0.0-0.5); HEMATOCRIT 40.3 % (42.0-52.0); HEMOGLOBIN 13.9 g/dl (13.5-17.5); LYMPH # 2.6 10^3/uL (1.5-5.0); LYMPH % 26.3 % (24.0-44.0); MEAN CORPUSCULAR HEMOGLOBIN 32.6 pg (27.0-33.0); MEAN CORPUSCULAR HGB CONC 34.5 g/dl (32.0-36.5); MEAN CORPUSCULAR VOLUME 94.6 fl (80.0-96.0); MONO % 10.2 % (2.0-8.0); NEUTROPHILS # 5.8 10^3/uL (1.5-8.5); NEUTROPHILS % 58.6 % (36.0-66.0); PLATELET COUNT, AUTOMATED 175 10^3/uL (150-450); RED BLOOD COUNT 4.26 10^6/uL (4.30-6.10); WHITE BLOOD COUNT 9.9 10^3/uL (4.0-10.0)
[2022-07-15] MEDS ORDERED: KETOROLAC 30 MG/ML 1ML VIAL IV ONE (22:00)
[2022-07-15 22:12] LABS: MAGNESIUM LEVEL 1.7 MG/DL (1.8-2.4)
[2022-07-15 22:13] LABS: BLOOD UREA NITROGEN 12 MG/DL (9-23); CALCIUM LEVEL 9.4 MG/DL (8.5-10.1); CARBON DIOXIDE LEVEL 25 MMOL/L (20-31); CHLORIDE LEVEL 107 MMOL/L (98-107); CREATININE FOR GFR 0.84 MG/DL (0.70-1.30); GLOMERULAR FILTRATION RATE > 60.0 (>60); GLUCOSE, FASTING 106 MG/DL (60-100); POTASSIUM SERUM 3.6 MMOL/L (3.5-5.1); SODIUM LEVEL 140 MMOL/L (136-145)
[2022-07-15] MEDS ORDERED: MAG SULF 1GM/100ML (MAG RUN) 1 GM in IV 1 EA IV ONE (23:10)
[2022-07-15] MEDS ORDERED: MAGNESIUM OXIDE 400MG TAB (MAG-OX) PO ONE (23:20)
[2022-07-15 23:45] VITALS: BP 139/83
== END 2022-07-16 00:07 | disposition home or self-care (01) ==
LOC: M ED 18:19
DX: R51.9 Headache, unspecified (principal); G93.89 Other specified disorders of brain; Z86.73 Personal history of transient ischemic attack (TIA), and cerebral infarction without residual deficits; Z79.01 Long term (current) use of anticoagulants; I10 Essential (primary) hypertension; Z86.718 Personal history of other venous thrombosis and embolism; F32.A Depression, unspecified; Z79.899 Other long term (current) drug therapy; Z88.8 Allergy status to other drugs, medicaments and biological substances

== ENCOUNTER → 2022-08-13 | Outpatient (REF) | payer MEDICARE, MEDICAID ==
[2022-08-13 16:39] LABS: BASO # 0.1 10^3/uL (0.0-0.2); BASO % 0.9 % (0.0-1.0); EOS # 0.3 10^3/uL (0.0-0.5); EOS % 3.9 % (0.0-3.0); HEMATOCRIT 45.9 % (42.0-52.0); HEMOGLOBIN 15.6 g/dl (13.5-17.5); LYMPH # 1.8 10^3/uL (1.5-5.0); LYMPH % 24.8 % (24.0-44.0); MEAN CORPUSCULAR HEMOGLOBIN 32.7 pg (27.0-33.0); MEAN CORPUSCULAR VOLUME 96.2 fl (80.0-96.0); MONO # 0.7 10^3/uL (0.0-0.8); MONO % 8.8 % (2.0-8.0); NEUTROPHILS # 4.5 10^3/uL (1.5-8.5); NEUTROPHILS % 61.3 % (36.0-66.0); PLATELET COUNT, AUTOMATED 183 10^3/uL (150-450); RED BLOOD COUNT 4.77 10^6/uL (4.30-6.10); WHITE BLOOD COUNT 7.4 10^3/uL (4.0-10.0)
[2022-08-13 17:16] LABS: MAGNESIUM LEVEL 1.9 MG/DL (1.8-2.4)
[2022-08-13 17:18] LABS: FOLATE 17.9 NG/ML (>5.4)
== END ==
LOC: M LAB REF 16:08
PROVIDERS: ATTEND Family Medicine Addiction Medicine
DX: E83.42 Hypomagnesemia (principal); D64.9 Anemia, unspecified

== ENCOUNTER → 2022-09-20 | Outpatient (REF) | payer MEDICARE, MEDICAID ==
[~2022-09-20] MED LIST changes: +MAGN400T33; +ROSU10TA6; +VITA100065 PO
[2022-09-20 19:42] LABS: HEMOGLOBIN A1c 5.6 % (4.0-6.0)
[2022-09-20 20:06] LABS: ALBUMIN 4.2 G/DL (3.2-5.2); ALKALINE PHOSPHATASE 139 U/L (46-116); ALT/SGPT 102 U/L (7.0-40); AST/SGOT 65 U/L (<34); BILIRUBIN,TOTAL 0.4 MG/DL (0.3-1.2); BLOOD UREA NITROGEN 13 MG/DL (9-23); CALCIUM LEVEL 9.8 MG/DL (8.5-10.1); CARBON DIOXIDE LEVEL 25 MMOL/L (20-31); CHLORIDE LEVEL 111 MMOL/L (98-107); CREATININE FOR GFR 0.87 MG/DL (0.70-1.30); GLOMERULAR FILTRATION RATE > 60.0 (>60); GLUCOSE, FASTING 116 MG/DL (60-100); MAGNESIUM LEVEL 1.9 MG/DL (1.8-2.4); SODIUM LEVEL 146 MMOL/L (136-145); TOTAL PROTEIN 7.2 G/DL (5.7-8.2)
== END ==
LOC: M LAB REF 16:52
PROVIDERS: ATTEND Family Medicine Addiction Medicine
DX: F10.20 Alcohol dependence, uncomplicated (principal); R73.9 Hyperglycemia, unspecified; E83.42 Hypomagnesemia

== ENCOUNTER → 2022-09-29 | Outpatient (CLI) | payer MEDICARE, MEDICAID | LOC: M RAD 06:18 | PROVIDERS: ATTEND Family Medicine Addiction Medicine | DX: R16.0 Hepatomegaly, not elsewhere classified (principal) ==

== ENCOUNTER → 2023-03-25 | Outpatient (REF) | payer MEDICARE, MEDICAID, OTHER ==
[~2023-03-25] MED LIST changes: +TRAZ-252
[2023-03-25 13:05] LABS: ALBUMIN 4.1 G/DL (3.2-5.2); ALKALINE PHOSPHATASE 137 U/L (46-116); ALT/SGPT 107 U/L (7.0-40); AST/SGOT 76 U/L (<34); BILIRUBIN,TOTAL 0.6 MG/DL (0.3-1.2); BLOOD UREA NITROGEN 10 MG/DL (9-23); CALCIUM LEVEL 9.3 MG/DL (8.5-10.1); CARBON DIOXIDE LEVEL 26 MMOL/L (20-31); CHLORIDE LEVEL 110 MMOL/L (98-107); CHOLESTEROL LEVEL 153 MG/DL (<200); CHOLESTEROL RISK RATIO 3.71 (<5); CREATININE FOR GFR 0.77 MG/DL (0.70-1.30); GLOMERULAR FILTRATION RATE > 60.0 (>60); GLUCOSE, FASTING 125 MG/DL (60-100); HDL CHOLESTEROL 41.2 MG/DL (>40); LDL CHOLESTEROL 44.2 MG/DL (<100); NON-HDL-C 111.8 MG/DL; POTASSIUM SERUM 3.9 MMOL/L (3.5-5.1); SODIUM LEVEL 145 MMOL/L (136-145); THYROID STIMULATING HORMONE 1.496 uIU/ML (0.55-4.78); TOTAL PROTEIN 7.2 G/DL (5.7-8.2); TRIGLYCERIDES LEVEL 338 MG/DL (<150)
[2023-03-25 13:22] LABS: HEMOGLOBIN A1c 5.5 % (4.0-6.0)
== END ==
LOC: M LAB REF 11:54
PROVIDERS: ATTEND Family Medicine Addiction Medicine
DX: R73.9 Hyperglycemia, unspecified (principal); Z79.899 Other long term (current) drug therapy

== ENCOUNTER 2023-08-22 14:34 | Emergency (ER) | payer MEDICARE, OTHER ==
[~2023-08-22] VITALS: Ht 185.4 cm; Wt 96.3 kg
[~2023-08-22 14:34] MED LIST changes: +ARIP1TAB4; -HYDR-3911 PO; +HYDR50TA46 PO
[2023-08-22] MEDS: HumuLIN R (REGULAR) INSULIN (NovoLIN R) **100U/ML** PER UNIT IV ONE (15:27)
[2023-08-22] MEDS: NS 1,000 ML IV ONE (15:27)
[2023-08-22 15:30] LABS: VENOUS BASE EXCESS -1.8 (-2.0-2.0); VENOUS HCO3 23.1 MMOL/L (23.0-27.0); VENOUS O2 SATURATION 80.8 % (60.0-80.0); VENOUS PARTIAL PRESSURE CO2 40.1 mmHg (38.0-50.0); VENOUS PARTIAL PRESSURE O2 41.3 mmHg (30.0-50.0); VENOUS PH 7.379 UNITS (7.330-7.430); VENOUS STANDARD HCO3 22.6 MMOL/L; VENOUS TOTAL CO2 24.4 MMOL/L (24.0-28.0)
[2023-08-22 16:23] LABS: HEMOGLOBIN A1c > 14.0 % (4.0-6.0)
[2023-08-22] MEDS ORDERED: LANTINJ4 SC (17:01)
[2023-08-22] MEDS ORDERED: BLOO-259 MC (17:01)
[2023-08-22] MEDS ORDERED: [UNRECOGNIZED DRUG - CODE] XX (17:01)
[2023-08-22] MEDS ORDERED: FLAS1KIT2 MC (17:01)
[2023-08-22] MEDS ORDERED: METF500T13 PO (17:01)
[2023-08-22 17:27] VITALS: BP 122/75; TEMP 98; O2SAT 96
== END 2023-08-22 17:41 | disposition home or self-care (01) ==
LOC: M ED 14:34
DX: E11.65 Type 2 diabetes mellitus with hyperglycemia (principal); K21.9 Gastro-esophageal reflux disease without esophagitis; G40.802 Other epilepsy, not intractable, without status epilepticus; Z88.9 Allergy status to unspecified drugs, medicaments and biological substances; Z79.899 Other long term (current) drug therapy; Z79.1 Long term (current) use of non-steroidal anti-inflammatories (NSAID); Z79.4 Long term (current) use of insulin

== ENCOUNTER → 2023-09-20 | Outpatient (REF) | payer MEDICARE, MEDICAID ==
[~2023-09-20] MED LIST changes: +BLOO-259 MC; +FLAS1KIT2 MC; +LANTINJ4 SC; +METF500T13 PO; +[UNRECOGNIZED DRUG - CODE] XX
[2023-09-20 12:43] LABS: ALBUMIN 4.3 G/DL (3.2-5.2); ALKALINE PHOSPHATASE 114 U/L (46-116); ALT/SGPT 50 U/L (7.0-40); AST/SGOT 22 U/L (<34); BILIRUBIN,TOTAL 0.3 MG/DL (0.3-1.2); BLOOD UREA NITROGEN 12 MG/DL (9-23); CALCIUM LEVEL 9.1 MG/DL (8.5-10.1); CARBON DIOXIDE LEVEL 31 MMOL/L (20-31); CHLORIDE LEVEL 109 MMOL/L (98-107); CREATININE FOR GFR 0.77 MG/DL (0.70-1.30); GLOMERULAR FILTRATION RATE > 60.0 (>60); GLUCOSE, FASTING 133 MG/DL (60-100); POTASSIUM SERUM 4.5 MMOL/L (3.5-5.1); SODIUM LEVEL 143 MMOL/L (136-145); TOTAL PROTEIN 7.1 G/DL (5.7-8.2)
[2023-09-20 12:45] LABS: TOTAL 25(OH) VITAMIN D 32.3 NG/ML (20.0-100.0)
[2023-09-20 13:23] LABS: HEPATITIS C VIRUS ABY INDEX 0.04 INDEX (<0.8)
== END ==
LOC: M LAB REF 11:40
PROVIDERS: ATTEND Family Medicine Addiction Medicine
DX: R74.01 Elevation of levels of liver transaminase levels (principal); E55.9 Vitamin D deficiency, unspecified

== ENCOUNTER → 2024-01-27 | Outpatient (REF) | payer MEDICARE, OTHER ==
[~2024-01-27] MED LIST changes: +ONDA-282 PO; -ONDA4TAB6 PO; -ROSU10TA6; +ROSU10TA61
[2024-01-27 14:25] LABS: ALBUMIN 4.3 G/DL (3.2-5.2); ALKALINE PHOSPHATASE 103 U/L (46-116); ALT/SGPT 58 U/L (7.0-40); AST/SGOT 35 U/L (<34); BILIRUBIN,TOTAL 0.3 MG/DL (0.3-1.2); BLOOD UREA NITROGEN 14 MG/DL (9-23); CALCIUM LEVEL 9.3 MG/DL (8.5-10.1); CARBON DIOXIDE LEVEL 27 MMOL/L (20-31); CHLORIDE LEVEL 106 MMOL/L (98-107); CHOLESTEROL LEVEL 170 MG/DL (<200); CHOLESTEROL RISK RATIO 4.34 (<5); GLOMERULAR FILTRATION RATE > 60.0 (>60); GLUCOSE, FASTING 114 MG/DL (60-100); HDL CHOLESTEROL 39.1 MG/DL (>40); NON-HDL-C 130.9 MG/DL; POTASSIUM SERUM 4.5 MMOL/L (3.5-5.1); SODIUM LEVEL 138 MMOL/L (136-145); TOTAL PROTEIN 7.1 G/DL (5.7-8.2); TRIGLYCERIDES LEVEL 417 MG/DL (<150)
[2024-01-27 14:27] LABS: THYROID STIMULATING HORMONE 1.568 uIU/ML (0.55-4.78)
== END ==
LOC: M LAB REF 12:36
PROVIDERS: ATTEND Family Medicine Addiction Medicine
DX: E11.9 Type 2 diabetes mellitus without complications (principal)

== ENCOUNTER → 2024-02-28 | Outpatient (CLI) | payer MEDICARE, OTHER ==
[~2024-02-28] MED LIST changes: +AMOX875T2 PO; +ARIP1TAB6 PO; +B-12100021 PO; +GABA-1490 PO; -GABA600T4; -MAGN400T33; +MAGN400T33 PO; +OXCA300T14 PO; -ROSU10TA61; +ROSU10TA61 PO; +VITA1CAP4 PO; +VITA500C24 PO
[2024-02-28 17:27] LABS: HEMATOCRIT 47.3 % (42.0-52.0); HEMOGLOBIN 15.9 g/dl (13.5-17.5); MEAN CORPUSCULAR HEMOGLOBIN 32.7 pg (27.0-33.0); MEAN CORPUSCULAR HGB CONC 33.6 g/dl (32.0-36.5); MEAN CORPUSCULAR VOLUME 97.3 fl (80.0-96.0); PLATELET COUNT, AUTOMATED 167 10^3/uL (150-450); RED BLOOD COUNT 4.86 10^6/uL (4.30-6.10); WHITE BLOOD COUNT 6.5 10^3/uL (4.0-10.0)
[2024-02-28 17:45] LABS: ALKALINE PHOSPHATASE 97 U/L (46-116); ALT/SGPT 74 U/L (7.0-40); AST/SGOT 37 U/L (<34); BILIRUBIN,DIRECT 0.2 MG/DL (<0.4); BILIRUBIN,TOTAL 0.5 MG/DL (0.3-1.2)
[2024-02-28 17:47] LABS: IMMUNOGLOBULIN A 266.2 MG/DL (40-350); IMMUNOGLOBULIN G 835 MG/DL (650-1600)
[2024-02-28 17:50] LABS: IMMUNOGLOBULIN E 74.4 IU/ML (0-378)
[2024-03-01 16:07] LABS: HOMOCYST(E)INE SERUM 10.1 umol/L (<11.4)
[2024-03-02 22:46] LABS: CARDIOLIPIN IGA ANTIBODY < 2.0 APL-U/mL (<20.0); CARDIOLIPIN IGG ANTIBODY < 2.0 GPL-U/mL (<20.0); CARDIOLIPIN IGM ANTIBODY 2.2 MPL-U/mL (<20.0)
[2024-03-03 17:23] LABS: NT PRO BNP SO < 36 pg/mL (<125)
[2024-03-03 23:57] LABS: ANTI THROMBIN 3 FUNCT ACTIVITY 105 % normal (80-135)
[2024-03-04 00:03] LABS: PROTEIN C FUNCTIONAL ACTIVITY 174 % normal (70-180); PROTEIN S FUNCTIONAL ACTIVITY 67 % normal (70-150)
[2024-03-06 00:52] LABS: PTT-LA 36 sec (<=40); dRVVT 47 sec (<=45); dRVVT Confirm Negative (Negative)
[2024-03-06 17:11] LABS: MTHFR DNA ANALYSIS POSITIVE
[2024-03-12 20:03] LABS: ALPHA 1 ANTITRYPSIN 143 mg/dL (83-199); FACTOR II PROTHROMBIN GENE AN NEGATIVE; FACTOR V LEIDEN FOR MEDINET NEGATIVE
== END ==
LOC: M LAB 15:19
PROVIDERS: ATTEND Internal Medicine Pulmonary Disease
DX: R06.02 Shortness of breath (principal)

== ENCOUNTER → 2024-08-29 | Outpatient (CLI) | payer MEDICARE, OTHER ==
[~2024-08-29] MED LIST changes: +GABA-1172 PO; -GABA-282 PO
[2024-08-29 17:05] LABS: BASO % 0.5 % (0.0-1.0); EOS # 0.3 10^3/uL (0.0-0.5); EOS % 3.5 % (0.0-3.0); HEMATOCRIT 46.3 % (42.0-52.0); HEMOGLOBIN 15.8 g/dl (13.5-17.5); LYMPH # 2.2 10^3/uL (1.5-5.0); LYMPH % 26.1 % (24.0-44.0); MEAN CORPUSCULAR HEMOGLOBIN 33.3 pg (27.0-33.0); MEAN CORPUSCULAR HGB CONC 34.1 g/dl (32.0-36.5); MEAN CORPUSCULAR VOLUME 97.7 fl (80.0-96.0); MONO # 0.9 10^3/uL (0.0-0.8); MONO % 10.9 % (2.0-8.0); NEUTROPHILS # 4.9 10^3/uL (1.5-8.5); NEUTROPHILS % 58.5 % (36.0-66.0); PLATELET COUNT, AUTOMATED 163 10^3/uL (150-450); RED BLOOD COUNT 4.74 10^6/uL (4.30-6.10); WHITE BLOOD COUNT 8.3 10^3/uL (4.0-10.0)
[2024-08-29 17:25] LABS: ALBUMIN 4.3 G/DL (3.2-5.2); ALKALINE PHOSPHATASE 93 U/L (40-129); ALT/SGPT 62 U/L (7.0-40); AST/SGOT 35 U/L (<34); BILIRUBIN,TOTAL 0.5 MG/DL (0.3-1.2); BLOOD UREA NITROGEN 13 MG/DL (9-23); CALCIUM LEVEL 9.6 MG/DL (8.5-10.1); CARBON DIOXIDE LEVEL 26 MMOL/L (20-31); CHLORIDE LEVEL 108 MMOL/L (98-107); CREATININE FOR GFR 0.77 MG/DL (0.70-1.30); GLOMERULAR FILTRATION RATE > 60.0 (>60); GLUCOSE, FASTING 99 MG/DL (60-100); SODIUM LEVEL 142 MMOL/L (136-145); TOTAL PROTEIN 7.4 G/DL (5.7-8.2)
== END ==
LOC: M LAB 16:06
PROVIDERS: ATTEND Student in an Organized Health Care Education/Training Program
DX: R56.9 Unspecified convulsions (principal)

== ENCOUNTER → 2024-11-19 | Outpatient (REF) | payer MEDICARE, OTHER ==
[~2024-11-19] MED LIST changes: +VENL37.598
[2024-11-19 14:58] LABS: ALBUMIN 4.5 G/DL (3.2-5.2); ALKALINE PHOSPHATASE 103 U/L (40-129); ALT/SGPT 62 U/L (7.0-40); AST/SGOT 37 U/L (<34); BILIRUBIN,TOTAL 0.3 MG/DL (0.3-1.2); BLOOD UREA NITROGEN 15 MG/DL (9-23); CALCIUM LEVEL 9.7 MG/DL (8.5-10.1); CARBON DIOXIDE LEVEL 30 MMOL/L (20-31); CHLORIDE LEVEL 110 MMOL/L (98-107); CHOLESTEROL LEVEL 153 MG/DL (<200); CHOLESTEROL RISK RATIO 2.61 (<5); CREATININE FOR GFR 0.71 MG/DL (0.70-1.30); GLOMERULAR FILTRATION RATE > 90.0 (>60); GLUCOSE, FASTING 121 MG/DL (60-100); HDL CHOLESTEROL 58.6 MG/DL (>40); LDL CHOLESTEROL 51.2 MG/DL (<100); NON-HDL-C 94.4 MG/DL; POTASSIUM SERUM 4.5 MMOL/L (3.5-5.1); SODIUM LEVEL 145 MMOL/L (136-145); THYROID STIMULATING HORMONE 1.006 uIU/ML (0.55-4.78); TOTAL PROTEIN 7.6 G/DL (5.7-8.2); TRIGLYCERIDES LEVEL 216 MG/DL (<150)
== END ==
LOC: M LAB REF 12:22
PROVIDERS: ATTEND Family Medicine Addiction Medicine
DX: E13.9 Other specified diabetes mellitus without complications (principal)

== ENCOUNTER → 2025-03-12 | Outpatient (REF) | payer MEDICARE, OTHER ==
[~2025-03-12] MED LIST changes: -COLC0.6T47 PO; +COLC0.6T53 PO; +HYDR50CA2; -IBUP-1022 PO; +IBUP600T42 PO; +PARO40TA2; -PROZ20CA11 PO; +PROZ20CA12 PO; +REXU1TAB3; +SENN-225 PO; -SENO8.6T5 PO
[2025-03-12 13:23] LABS: CHOLESTEROL LEVEL 163.0 MG/DL (<200); CHOLESTEROL RISK RATIO 1.88 (<5); LDL CHOLESTEROL 45.2 MG/DL (<100); NON-HDL-C 76.6 MG/DL; TRIGLYCERIDES LEVEL 157.0 MG/DL (<150)
[2025-03-12 13:31] LABS: MALB URINE SIEMENS 8.0 MG/L
[2025-03-12 13:32] LABS: CREATININE, URINE 96.8 MG/DL; MAU/CREAT RATIO 8.2 MCG/MG (0.0-30.0)
[2025-03-12 13:35] LABS: ESTIMATED AVERAGE GLUCOSE 97.0 MG/DL (60-110)
== END ==
LOC: M LAB REF 12:15
PROVIDERS: ATTEND Family Medicine Addiction Medicine
DX: E11.9 Type 2 diabetes mellitus without complications (principal); Z97.4 Presence of external hearing-aid

== ENCOUNTER → 2025-03-15 | Outpatient (CLI) | payer MEDICARE, MEDICAID | LOC: M RAD 06:45 | DX: D68.69 Other thrombophilia (principal); K76.0 Fatty (change of) liver, not elsewhere classified; R16.0 Hepatomegaly, not elsewhere classified; K81.0 Acute cholecystitis; N28.1 Cyst of kidney, acquired ==

== ENCOUNTER → 2025-03-22 | Outpatient (REF) | payer MEDICARE, MEDICAID ==
[2025-03-22 18:08] LABS: BASO # 0.0 10^3/uL (0.0-0.2); BASO % 0.2 % (0.0-1.0); EOS # 0.1 10^3/uL (0.0-0.5); EOS % 1.2 % (0.0-3.0); LYMPH # 1.7 10^3/uL (1.5-5.0); LYMPH % 19.6 % (24.0-44.0); MONO # 1.0 10^3/uL (0.0-0.8); MONO % 12.2 % (2.0-8.0); NEUTROPHILS # 5.6 10^3/uL (1.5-8.5); NEUTROPHILS % 66.4 % (36.0-66.0); PLATELET COUNT, AUTOMATED 163 10^3/uL (150-450)
[2025-03-22 18:12] LABS: ALT/SGPT 65 U/L (7.0-40); AST/SGOT 72 U/L (<34); C REACTIVE PROTEIN QUANTITATIV 0.59 MG/DL (<1.0); CALCIUM LEVEL 10.5 MG/DL (8.5-10.1); CARBON DIOXIDE LEVEL 28 MMOL/L (20-31); CHLORIDE LEVEL 102 MMOL/L (98-107); CREATININE FOR GFR 0.69 MG/DL (0.70-1.30); GLOMERULAR FILTRATION RATE > 90.0 (>60); POTASSIUM SERUM 4.3 MMOL/L (3.5-5.1); SODIUM LEVEL 136 MMOL/L (136-145)
[2025-03-22 18:15] LABS: ERYTHROCYTE SEDIMENTATION RATE 17 mm/hr (0-15)
== END ==
LOC: M LAB REF 16:18
PROVIDERS: ATTEND Family Medicine Addiction Medicine
DX: R23.3 Spontaneous ecchymoses (principal)

== ENCOUNTER → 2025-04-08 | Outpatient (CLI) | payer MEDICARE, OTHER ==
[~2025-04-08] MED LIST changes: +ISOVUE-370 76% 100 ML VIAL As Ordered ONE
== END ==
LOC: M RAD 08:37
DX: D68.69 Other thrombophilia (principal); K76.0 Fatty (change of) liver, not elsewhere classified
CPT/HCPCS: 74177; Q9967